=== PATIENT | female | born 1935 | race American Indian/Alaskan Native ===

== ENCOUNTER 2018-04-14 12:57 | Inpatient (IN) | payer MEDICARE, OTHER ==
[2018-04-14 12:57] VITALS: BMI 21.4
[2018-04-14] MEDS ORDERED: Sodium Chloride 0.9% 1,000 ML IV ONE (13:31)
--- NOTE | 2018-04-14 13:34 | C.PDOC ---
History Of Present Illness LIMITED DUE TO DEMENTIA, HX PER FAMILY REFERRED DR RIVERO FOR ADMISSION. B/L FOOT INFXN X 1 YEAR, WORSE X SEV WEEKS. PER FAMILY, HO RA AND "BONES STARTING TO ERODE THROUGH". NO FEVER, CHILLS. EATING WELL, OTHERWISE @ BASELINE. EXAM NAD NONTOXIC EXT CHRONIC RA DEFORMITIES, CONTRACTURES B/L HANDS AND FEET. B/L FEET: +SEVERE BL BUNIONS W EROSION THROUGH SKIN SKIN +LOCAL ERYTHEMA, CHRONIC ULCERATIONS B/L FEET. NO DC REMAINDER NEG Time Seen by Provider: 04/14/18 13:10 Chief Complaint (Nursing): Lower Extremity Problem/Injury History Per: Family History/Exam Limitations: clinical condition (dementia) Onset/Duration Of Symptoms: Days Current Symptoms Are (Timing): Still Present Severity: Moderate Past Medical History Reviewed: Historical Data, Nursing Documentation, Vital Signs Vital Signs: Last Vital Signs Temp 97.4 F L 04/14/18 13:04 Pulse 71 04/14/18 13:04 Resp 18 04/14/18 13:04 BP 100/60 04/14/18 13:04 Pulse Ox 95 04/14/18 13:04 - Medical History PMH: Bronchitis, HTN, Rheumatoid Arthritis Denies: Chronic Kidney Disease Other Surgeries: Hx of surgeries - [facility] Procedures REPAIR OF HAMMER TOE (04/08/14) Family History: States: No Known Family Hx - Social History Hx Alcohol Use: No Hx Substance Use: No Review Of Systems Except As Marked, All Systems Reviewed And Found Negative. Constitutional: Negative for: Fever, Chills Skin: Positive for: Other (bilateral foot infection) Physical Exam - Physical Exam Appears: Non-toxic, No Acute Distress Skin: Normal Color, Warm, Dry, Other (local erythema and chronic ulcerations to bilateral feet, no discharge) Head: Atraumatic, Normacephalic Eye(s): bilateral: Normal Inspection Cardiovascular: Rhythm Regular Respiratory: Other (NARD) Extremity: Normal ROM, Deformity (chronic RA deformities, contractures to bilateral hands and feet), Other (bilateral feet: severe BL bunions with erosion through skin) Neurological/Psych: Oriented x3, Normal Speech ED Course And Treatment - Laboratory Results Result Diagrams: 04/14/18 13:43 04/14/18 13:43 O2 Sat by Pulse Oximetry: 95 (RA) Pulse Ox Interpretation: Normal Progress - Re-Evaluation Re-evaluation Note: 04/14/18 13:30 DW PODIATRY TEAM WILL CONSULT 04/14/18 14:43 D/W DR MANAS CORTEZ [employer]PUT[employer] SPECIALIST WILL ADMIT - Data Reviewed Data Reviewed: Lab, Diagnostic imaging, EKG, Old records Medical Decision Making Medical Decision Making: Plan: --Labs --ECG --CXR --[id number] Feet --IV Fluids Disposition Counseled Patient/Family Regarding: Studies Performed, Diagnosis - Disposition Disposition: HOSPITALIZED Disposition Time: 14:43 Condition: SERIOUS Forms: Luminate (Fijian) - POA Present On Arrival: None - Clinical Impression Clinical Impression: Rheumatoid arthritis of foot, Bone and joint malformation, Osteomyelitis - Scribe Statement The provider has reviewed the documentation as recorded by the Tereseibjessica Armstrong Provider Attestation: All medical record entries made by the Tereseibe were at my direction and personally dictated by me. I have reviewed the chart and agree that the record accurately reflects my personal performance of the history, physical exam, medical decision making, and the department course for this patient. I have also personally directed, reviewed, and agree with the discharge instructions and disposition.
[2018-04-14 13:50] LABS: BASO % 0.5 % (0.0-2.0); EOS % 0.9 % (0.0-4.0); HEMOGLOBIN 8.2 g/dL (11.0-16.0); LYMPH # 1.5 K/uL (1.0-4.3); LYMPH % 27.8 % (20.0-40.0); MEAN CORPUSCULAR HEMOGLOBIN 21.9 pg (27.0-31.0); MEAN CORPUSCULAR HGB CONC 32.4 g/dL (33.0-37.0); MONO # 0.3 K/uL (0.0-0.8); MONO % 5.8 % (0.0-10.0); NEUT # 3.4 K/uL (1.8-7.0); RBC 3.76 Mil/uL (3.80-5.20); RED CELL DISTRIBUTION WIDTH 18.2 % (11.5-14.5); WHITE BLOOD COUNT 5.3 K/uL (4.8-10.8)
[2018-04-14 13:54] LABS: MEAN CELL VOLUME 67.5 fL (81.0-99.0)
[2018-04-14 13:55] LABS: INR 1.1; PROTHROMBIN TIME 11.7 SECONDS (9.7-12.2)
[2018-04-14 14:01] LABS: ALBUMIN 3.6 g/dL (3.5-5.0); CALCIUM 8.8 mg/dl (8.6-10.4)
--- NOTE | 2018-04-14 14:34 | RAD ---
Date of service: 04/14/2018 PROCEDURE: Bilateral Feet Radiographs. HISTORY: BONE PROTRUDING, HO RA COMPARISON: None. 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 Multiple hypertrophic changes about the 5th metatarsal head. Multiple subluxations of the 1st and 5th digits noted. Plate assumed transfixing a remote distal fibular fracture. No gross hardware failure appreciated on these images. Left Foot: All metatarsal shafts appear present. There is extreme hammertoe orientations and confounding super imposition and angular delay hampton deformities of the phalanges relative to the metatarsals. This limits optimal evaluation. Chronicity of this appearance unknown but inferred as likely chronic a faint lucency projects over the left 5th metatarsal base no focal soft tissue swelling is seen here. Top normal variant versus old nondisplaced fracture is believe most likely. Cystic changes of the 4th proximal metatarsal. No gross pathological fracture here. JOINTS: Right Foot: Osteoarthrosis inferred of the phalanges Left Foot: Osteoarthrosis inferred the phalanges SOFT TISSUES: Right Foot: Diffusely swollen. Left Foot: Diffusely swollen OTHER FINDINGS: None. IMPRESSION: Multiple hammertoe orientations as well as multiple subluxations inferred-overall toes are markedly disorganized in appearance on both feet. Comparisons available to assess for stability. Chronicity is favored. Postsurgical changes as detailed above. No gross fracture seen. There is apparent paucity over some of the osseous structures where clinical history states bone is protruding. Is difficult to assess for any discrete osteomyelitis or periosteal reaction to suggest this.. Vascular calcifications
--- NOTE | 2018-04-14 14:53 | RAD ---
HISTORY: Pre Op COMPARISON: No prior. TECHNIQUE: Chest, one view. FINDINGS: Examination limited by patient's arms projecting over the lateral lung baumann. LUNGS: Hyperinflation. Increased lucencies especially within the bilateral upper lung baumann compatible with underlying emphysema. No focal consolidation. Please note that chest x-ray has limited sensitivity for the detection of pulmonary masses. PLEURA: Costophrenic angles are incompletely visualized. No large pleural effusion identified. No definite pneumothorax . CARDIOVASCULAR: Cardiomegaly. Dense atherosclerotic calcification present. OSSEOUS STRUCTURES: Degenerative changes. Osseous demineralization. VISUALIZED UPPER ABDOMEN: Unremarkable. OTHER FINDINGS: None. IMPRESSION: Limited study as above. Cardiomegaly. Emphysema/COPD.
[2018-04-14] MEDS ORDERED: Vancomycin 1 GM 1 GM/250 ML BAG IV SCH (15:00)
--- NOTE | 2018-04-14 17:10 | CP.PCM.HP ---
History of Present Illness - History of Present Illness History of Present Illness: PGY-1 H&P for Dr. Snyder's service Patient is an 82 y.o female with PMH of Rheumatoid arthritis and HTN presents to emergency department for evaluation of possible osteomyelitis in bilateral lower feet. Patient's family was not at bedside during interview process. Patient AAO x 1 at best and is very forgetful, likely secondary to baseline dementia. Patient is a poor historian and most information was collected through nursing staff and chart review. Patient's family was attempted to be contacted but no re sponse. PMH- HTN, Rheumatoid arthritis PSH- unknown FH- unknown Meds- Lisinopril/HCTZ unknown dosing Allergies- NKDA Social- unknown PMD- unknown Code- unknown Present on Admission - Present on Admission Any Indicators Present on Admission: No Review of Systems - Review of Systems Systems not reviewed;Unavailable: Dementia Past Patient History - Past Medical History & Family History Past Medical History?: Yes - Past Social History Smoking Status: Heavy Smoker > 10 Cigarettes Daily - CARDIAC Hx Hypertension: Yes - PULMONARY Hx Bronchitis: Yes - NEUROLOGICAL Hx Neurological Disorder: No - HEENT Hx HEENT Problems: No - RENAL Hx Chronic Kidney Disease: No - ENDOCRINE/METABOLIC Hx Endocrine Disorders: No - HEMATOLOGICAL/ONCOLOGICAL Hx Blood Disorders: No - INTEGUMENTARY Hx Dermatological Problems: No - MUSCULOSKELETAL/RHEUMATOLOGICAL Hx Rheumatoid Arthritis: Yes - GASTROINTESTINAL Hx Gastrointestinal Disorders: No - GENITOURINARY/GYNECOLOGICAL Hx Genitourinary Disorders: Yes Hx Incontinence: Yes - PSYCHIATRIC Hx Substance Use: No - SURGICAL HISTORY Hx Surgeries: Yes Hx Cataract Extraction: Yes (OD 09/09/2013; OS 07/15/2013) - ANESTHESIA Hx Anesthesia: Yes Hx Anesthesia Reactions: No Hx Malignant Hyperthermia: No Meds Allergies/Adverse Reactions: Allergies Allergy/AdvReac Type Severity Reaction Status Date / Time No Known Allergies Allergy Unverified 03/30/14 10:53 Physical Exam - Constitutional Appears: Non-toxic, No Acute Distress - Head Exam Head Exam: NORMAL INSPECTION, NORMOCEPHALIC - Eye Exam Eye Exam: EOMI, Normal appearance. absent: Nystagmus, Scleral icterus - ENT Exam ENT Exam: Mucous Membranes Dry - Respiratory Exam Respiratory Exam: Clear to Auscultation Bilateral, NORMAL BREATHING PATTERN. absent: Accessory Muscle Use, Decreased Breath Sounds, Rales, Rhonchi, Wheezes - Cardiovascular Exam Cardiovascular Exam: REGULAR RHYTHM, +S1, +S2. absent: Systolic Murmur - GI/Abdominal Exam GI & Abdominal Exam: Normal Bowel Sounds, Soft. absent: Diminished Bowel Sounds, Distended, Firm, Guarding, Tenderness - Extremities Exam Extremities exam: Negative for: calf tenderness, pedal edema Additional comments: chronic muscoskeletal deformities 2/2 to RA. deformities in the bilateral upper and lower extremities. Bilateral upper extremity contractures - Neurological Exam Additional comments: AAOx1 - Psychiatric Exam Psychiatric exam: Normal Affect, Normal Mood - Skin Skin Exam: Intact, Normal Color Results - Vital Signs Recent Vital Signs: Last Vital Signs Temp 97.7 F 04/14/18 15:39 Pulse 68 04/14/18 15:39 Resp 16 04/14/18 15:39 BP 109/67 04/14/18 15:39 Pulse Ox 95 04/14/18 15:39 - Labs Result Diagrams: 04/14/18 13:43 04/14/18 13:43 Labs: Laboratory Results - last 24 hr 04/14/18 04/14/18 04/14/18 13:43 13:43 13:43 WBC 5.3 RBC 3.76 L Hgb 8.2 L Hct 25.4 L MCV 67.5 L MCH 21.9 L MCHC 32.4 L RDW 18.2 H Plt Count 216 MPV 7.0 L Neut % (Auto) 65.0 Lymph % (Auto) 27.8 [place] % (Auto) 5.8 Eos % (Auto) 0.9 Baso % (Auto) 0.5 Neut # (Auto) 3.4 Lymph # (Auto) 1.5 [place] # (Auto) 0.3 Eos # (Auto) 0.0 Baso # (Auto) 0.0 Differential Comment PT 11.7 INR 1.1 APTT 34 Sodium 135 Potassium 4.3 Chloride 96 L Carbon Dioxide 28 Anion Gap 14 BUN 73 H Creatinine 1.1 Est GFR ( Amer) 58 Est GFR (Non-Af Amer) 48 Random Glucose 106 H Calcium 8.8 Total Bilirubin 0.5 AST 22 ALT 13 Alkaline Phosphatase 90 Total Protein 7.4 Albumin 3.6 Globulin 3.8 Albumin/Globulin Ratio 1.0 Blood Type Antibody Screen 04/14/18 13:43 WBC RBC Hgb Hct MCV MCH MCHC RDW Plt Count MPV Neut % (Auto) Lymph % (Auto) [place] % (Auto) Eos % (Auto) Baso % (Auto) Neut # (Auto) Lymph # (Auto) [place] # (Auto) Eos # (Auto) Baso # (Auto) Differential Comment PT INR APTT Sodium Potassium Chloride Carbon Dioxide Anion Gap BUN Creatinine Est GFR ( Amer) Est GFR (Non-Af Amer) Random Glucose Calcium Total Bilirubin AST ALT Alkaline Phosphatase Total Protein Albumin Globulin Albumin/Globulin Ratio Blood Type B NEGATIVE Antibody Screen Negative Assessment & Plan - Assessment and Plan (Free Text) Assessment: Patient is a 89 yo female with past medical history of HTN and Rheumatoid arthritis presents to the ED for evaluation of bilateral lower extremity osteomyelitis in her feet. Plan: Osteomyelitis Podiatry following- recommendations appreciated Xray pending of bilateral feet ESR pending 1x dose of Vancomycin Afebrile, No leukocytosis Blood cultures pending Hypertension Lisinopril 10mg po daily HCTZ 25mg po daily Rheumatoid Arthritis Unknown if patient is on medication Anemia Microcytic anemia Hemodynamically stable Repeat CBC in AM Stool occult pending Iron studies pending Dementia AAOx1 unknown baseline; will try to contact family again tomorrow PPX DVT: SCDS GI ppx: protonix 40mg hs
[2018-04-14] MEDS: Pantoprazole 40 mg EC Tab PO SCH (17:34)
[2018-04-14] MEDS ORDERED: Pantoprazole 40 mg EC Tab PO ONE (17:35)
[2018-04-14 17:45] LABS: IRON 23 ug/dL (37-170)
[2018-04-14 17:54] LABS: % IRON SATURATION 11 (20-55); TOTAL IRON BINDING CAPACITY 203 ug/dL (250-450)
[2018-04-14] MEDS: Piperacill/Tazo 3.375gm in Dex 3.375 GM/50 ML BAG IVPB SCH (18:55)
--- NOTE | 2018-04-14 19:04 | CP.PCM.CON ---
History of Present Illness - History of Present Illness History of Present Illness: Podiatry Consult note for Dr. Mcmullen 82F with PMH Rheumatoid arthritis and HTN seen in ED with severe deformity of b/l digits and exposed first metatarsal heads b/l. Patient suffers from dementia and is a poor historian. She states that she does experience some pain in both feet. Denies any recent N/V/F/C/CP/SOB/D Review of Systems - Review of Systems All systems: reviewed and no additional remarkable complaints except Review of Systems: as per HPI Past Patient History - Past Medical History & Family History Past Medical History?: Yes - Past Social History Smoking Status: Heavy Smoker > 10 Cigarettes Daily - CARDIAC Hx Cardiac Disorders: Yes Hx Hypertension: Yes - PULMONARY Hx Respiratory Disorders: Yes Hx Bronchitis: Yes - NEUROLOGICAL Hx Neurological Disorder: Yes Hx Dementia: Yes - HEENT Hx HEENT Problems: No - RENAL Hx Chronic Kidney Disease: No - ENDOCRINE/METABOLIC Hx Endocrine Disorders: No - HEMATOLOGICAL/ONCOLOGICAL Hx Blood Disorders: No - INTEGUMENTARY Hx Dermatological Problems: No - MUSCULOSKELETAL/RHEUMATOLOGICAL Hx Musculoskeletal Disorders: Yes Hx Falls: Yes Hx Rheumatoid Arthritis: Yes - GASTROINTESTINAL Hx Gastrointestinal Disorders: No - GENITOURINARY/GYNECOLOGICAL Hx Genitourinary Disorders: Yes Hx Incontinence: Yes - PSYCHIATRIC Hx Psychophysiologic Disorder: No Hx Substance Use: No - SURGICAL HISTORY Hx Surgeries: Yes Hx Cataract Extraction: Yes (OD 09/09/2013; OS 07/15/2013) - ANESTHESIA Hx Anesthesia: Yes Hx Anesthesia Reactions: No Hx Malignant Hyperthermia: No Has any member of the family had a problem w/ anesthesia?: No Meds Allergies/Adverse Reactions: Allergies Allergy/AdvReac Type Severity Reaction Status Date / Time No Known Allergies Allergy Unverified 03/30/14 10:53 - Medications Medications: Current Medications Hydrochlorothiazide (Hydrodiuril) 25 mg PO DAILY RODRÍGUEZ Last Admin: 04/14/18 17:27 Dose: Not Given Sodium Chloride (Sodium Chloride 0.9%) 1,000 mls @ 100 mls/hr IV .Q10H ONE Stop: 04/14/18 23:30 Last Admin: 04/14/18 13:55 Dose: 100 mls/hr Vancomycin HCl (Vancomycin 1gm In Normal Saline Addvantage) 1 gm in 250 mls @ 166.667 mls/hr IV STAT RODRÍGUEZ; Protocol Piperacillin Sod/Tazobactam Sod (Zosyn 3.375 Gm Iv Premix) 3.375 gm in 50 mls @ 200 mls/hr IVPB Q8H [facility]; Protocol Influenza Virus Vaccine (Fluzone Quad [id number]) 60 mcg IM .ONCE ONE Stop: 04/16/18 10:01 Lisinopril (Zestril) 10 mg PO DAILY [facility] Last Admin: 04/14/18 17:27 Dose: Not Given Pantoprazole Sodium (Protonix Ec Tab) 40 mg PO DAILY [facility] Last Admin: 04/14/18 17:34 Dose: 40 mg Pneumococcal Polyvalent Vaccine (Pneumovax 23 Vaccine) 0.5 ml IM .ONCE ONE Stop: 04/16/18 10:01 Physical Exam - Constitutional Appears: Well, Non-toxic, No Acute Distress - Extremities Exam Additional comments: LE focused exam: Vasc: DP/PT pulses fully palpable 2/4 b/l. Skin temperature warm to warm from proximal to distal. CFT < 3 seconds to all digits. Minimal edema noted to medial aspect of left forefoot Neuro: Epicritic and protective sensation grossly diminished b/l Derm: Open wounds b/l at distal first metatarsal head. Minimal erythema noted to left foot wound. No drainage, malodor or other clinical signs of infection appreciated at this time MSK: Severe digital deformities noted to all digits of both feet especially b/l hallux which are deviated so far laterally that the first metatarsal head protrudes from the skin distally as a result. All other digits laterally deviated and contracted - Neurological Exam Neurological exam: Alert, Altered - Psychiatric Exam Psychiatric exam: Normal Affect, Normal Mood Results - Vital Signs Recent Vital Signs: Last Vital Signs Temp 97.2 F L 04/14/18 18:12 Pulse 62 04/14/18 18:12 Resp 20 04/14/18 18:12 BP 103/42 L 04/14/18 18:12 Pulse Ox 95 04/14/18 18:12 - Labs Result Diagrams: 04/14/18 13:43 04/14/18 13:43 Labs: Laboratory Results - last 24 hr 04/14/18 04/14/18 04/14/18 13:43 13:43 13:43 WBC 5.3 RBC 3.76 L Hgb 8.2 L Hct 25.4 L MCV 67.5 L MCH 21.9 L MCHC 32.4 L RDW 18.2 H Plt Count 216 MPV 7.0 L Neut % (Auto) 65.0 Lymph % (Auto) 27.8 [place] % (Auto) 5.8 Eos % (Auto) 0.9 Baso % (Auto) 0.5 Neut # (Auto) 3.4 Lymph # (Auto) 1.5 [place] # (Auto) 0.3 Eos # (Auto) 0.0 Baso # (Auto) 0.0 Differential Comment ESR PT 11.7 INR 1.1 APTT 34 Sodium 135 Potassium 4.3 Chloride 96 L Carbon Dioxide 28 Anion Gap 14 BUN 73 H Creatinine 1.1 Est GFR ( Amer) 58 Est GFR (Non-Af Amer) 48 Random Glucose 106 H Calcium 8.8 Iron TIBC % Saturation Ferritin Total Bilirubin 0.5 AST 22 ALT 13 Alkaline Phosphatase 90 Total Protein 7.4 Albumin 3.6 Globulin 3.8 Albumin/Globulin Ratio 1.0 Blood Type Antibody Screen 04/14/18 04/14/18 04/14/18 13:43 17:15 17:15 WBC RBC Hgb Hct MCV MCH MCHC RDW Plt Count MPV Neut % (Auto) Lymph % (Auto) [place] % (Auto) Eos % (Auto) Baso % (Auto) Neut # (Auto) Lymph # (Auto) [place] # (Auto) Eos # (Auto) Baso # (Auto) Differential Comment ESR 60 H PT INR APTT Sodium Potassium Chloride Carbon Dioxide Anion Gap BUN Creatinine Est GFR ( Amer) Est GFR (Non-Af Amer) Random Glucose Calcium Iron 23 L TIBC 203 L % Saturation 11 L Ferritin Total Bilirubin AST ALT Alkaline Phosphatase Total Protein Albumin Globulin Albumin/Globulin Ratio Blood Type B NEGATIVE Antibody Screen Negative 04/14/18 17:15 WBC RBC Hgb Hct MCV MCH MCHC RDW Plt Count MPV Neut % (Auto) Lymph % (Auto) [place] % (Auto) Eos % (Auto) Baso % (Auto) Neut # (Auto) Lymph # (Auto) [place] # (Auto) Eos # (Auto) Baso # (Auto) Differential Comment ESR PT INR APTT Sodium Potassium Chloride Carbon Dioxide Anion Gap BUN Creatinine Est GFR ( Amer) Est GFR (Non-Af Amer) Random Glucose Calcium Iron TIBC % Saturation Ferritin 31.1 Total Bilirubin AST ALT Alkaline Phosphatase Total Protein Albumin Globulin Albumin/Globulin Ratio Blood Type Antibody Screen Assessment & Plan - Assessment and Plan (Free Text) Assessment: 82F with PMH Rheumatoid arthritis and HTN seen in ED with severe deformity of b/l digits and exposed first metatarsal heads b/l Plan: Patient seen and evaluated Plan discussed with Dr. Mcmullen Absent leukocytosis ESR 60 ID consult placed, recs appreciated Vascular consult placed, recs appreciated Foot xray: Multiple hammertoe orientations as well as multiple subluxations inferred-overall toes are markedly disorganized in appearance on both feet. Comparisons available to assess for stability. Chronicity is favored. Postsurgical changes as detailed above. No gross fracture seen. There is apparent paucity over some of the osseous structures where clinical history states bone is protruding. Is difficult to assess for any discrete osteomyelitis or periosteal reaction to suggest this. Vascular calcifications Patient will need b/l surgical intervention pending vascular workup; will f/u with Dr. Mcmullen Wounds dressed with betadine, DSD Podiatry will continue to follow while patient in house - Date & Time Date: 04/14/18 Time: 19:13
[2018-04-15] MEDS ORDERED: Iodixanol 320 MG/ML 100 ML BOTTLE IV ONE (00:26)
--- NOTE | 2018-04-15 01:27 | CP.PCM.CON ---
History of Present Illness - History of Present Illness History of Present Illness: Vascular surgery consult note for Dr. Garcia consulted for chronic foot wounds, vascular evaluation PT is a poor historian, portions of the history have been obtained from the daughter and the nurse. 82 y/o female with a PMHX RA, dementia, and HTN presents with complaints of worsening of chronic bilateral forefoot ulcers. She has 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 Vascular Surgery is being consulted to evaluate peripheral vascular supply prior to surgical treatment by podiatry. Pt has been seeing podiatry for recurrent foot infections for the past year. She complains of some soreness BL forefeet, but denies fever, chills, nausea, vomit, diarrhea, numbness and tingling. PMHX: RA, Dementia, HTN, PSHX: Metatarsal head resection Meds: lisinopril, hydrochlorothiazide ALL: NKDA Social: Heavy smoker > 10 years Review of Systems - Review of Systems All systems: reviewed and no additional remarkable complaints except (as per H PI) Past Patient History - Past Medical History & Family History Past Medical History?: Yes - Past Social History Smoking Status: Heavy Smoker > 10 Cigarettes Daily - CARDIAC Hx Cardiac Disorders: Yes Hx Hypertension: Yes - PULMONARY Hx Respiratory Disorders: Yes Hx Bronchitis: Yes - NEUROLOGICAL Hx Neurological Disorder: Yes Hx Dementia: Yes - HEENT Hx HEENT Problems: No - RENAL Hx Chronic Kidney Disease: No - ENDOCRINE/METABOLIC Hx Endocrine Disorders: No - HEMATOLOGICAL/ONCOLOGICAL Hx Blood Disorders: No - INTEGUMENTARY Hx Dermatological Problems: No - MUSCULOSKELETAL/RHEUMATOLOGICAL Hx Musculoskeletal Disorders: Yes Hx Falls: Yes Hx Rheumatoid Arthritis: Yes - GASTROINTESTINAL Hx Gastrointestinal Disorders: No - GENITOURINARY/GYNECOLOGICAL Hx Genitourinary Disorders: Yes Hx Incontinence: Yes - PSYCHIATRIC Hx Substance Use: No - SURGICAL HISTORY Hx Surgeries: Yes Hx Cataract Extraction: Yes (OD 09/09/2013; OS 07/15/2013) - ANESTHESIA Hx Anesthesia: Yes Hx Anesthesia Reactions: No Hx Malignant Hyperthermia: No Has any member of the family had a problem w/ anesthesia?: No Meds Allergies/Adverse Reactions: Allergies Allergy/AdvReac Type Severity Reaction Status Date / Time No Known Allergies Allergy Unverified 03/30/14 10:53 - Medications Medications: Current Medications Hydrochlorothiazide (Hydrodiuril) 25 mg PO DAILY [facility] Last Admin: 04/14/18 17:27 Dose: Not Given Vancomycin HCl (Vancomycin 1gm In Normal Saline Addvantage) 1 gm in 250 mls @ 166.667 mls/hr IV STAT [facility]; Protocol Piperacillin Sod/Tazobactam Sod (Zosyn 3.375 Gm Iv Premix) 3.375 gm in 50 mls @ 200 mls/hr IVPB Q8H [facility]; Protocol Last Admin: 04/14/18 18:55 Dose: 200 mls/hr Influenza Virus Vaccine (Fluzone Quad [id number]) 60 mcg IM .ONCE ONE Stop: 04/16/18 10:01 Lisinopril (Zestril) 10 mg PO DAILY [facility] Last Admin: 04/14/18 17:27 Dose: Not Given Pantoprazole Sodium (Protonix Ec Tab) 40 mg PO DAILY [facility] Last Admin: 04/14/18 17:34 Dose: 40 mg Pneumococcal Polyvalent Vaccine (Pneumovax 23 Vaccine) 0.5 ml IM .ONCE ONE Stop: 04/16/18 10:01 Physical Exam - Constitutional Appears: Non-toxic, No Acute Distress - Head Exam Head Exam: ATRAUMATIC, NORMOCEPHALIC - Eye Exam Eye Exam: Normal appearance. absent: Conjunctival injection, Scleral icterus - ENT Exam ENT Exam: Mucous Membranes Moist, Normal Oropharynx - Respiratory Exam Respiratory Exam: NORMAL BREATHING PATTERN. absent: Accessory Muscle Use, Respiratory Distress - Cardiovascular Exam Cardiovascular Exam: RRR - GI/Abdominal Exam GI & Abdominal Exam: Soft. absent: Distended, Tenderness - Extremities Exam Extremities exam: Negative for: calf tenderness, pedal edema Additional comments: distal foot covered in dressing c/d/i, BL feet warm, non-palpable DP, BL palpable TP and popliteal arteries - Neurological Exam Neurological exam: Alert, Altered - Psychiatric Exam Psychiatric exam: Normal Affect, Normal Mood - Skin Skin Exam: Dry, Normal Color, Warm Results - Vital Signs Recent Vital Signs: Last Vital Signs Temp 97.2 F L 04/14/18 18:12 Pulse 67 04/14/18 18:15 Resp 20 04/14/18 18:12 BP 105/58 L 04/14/18 18:15 Pulse Ox 95 04/14/18 18:12 - Labs Result Diagrams: 04/14/18 13:43 04/14/18 13:43 Labs: Laboratory Results - last 24 hr 04/14/18 04/14/18 04/14/18 13:43 13:43 13:43 WBC 5.3 RBC 3.76 L Hgb 8.2 L Hct 25.4 L MCV 67.5 L MCH 21.9 L MCHC 32.4 L RDW 18.2 H Plt Count 216 MPV 7.0 L Neut % (Auto) 65.0 Lymph % (Auto) 27.8 Lake % (Auto) 5.8 Eos % (Auto) 0.9 Baso % (Auto) 0.5 Neut # (Auto) 3.4 Lymph # (Auto) 1.5 Lake # (Auto) 0.3 Eos # (Auto) 0.0 Baso # (Auto) 0.0 Differential Comment ESR PT 11.7 INR 1.1 APTT 34 Sodium 135 Potassium 4.3 Chloride 96 L Carbon Dioxide 28 Anion Gap 14 BUN 73 H Creatinine 1.1 Est GFR ( Amer) 58 Est GFR (Non-Af Amer) 48 Random Glucose 106 H Calcium 8.8 Iron TIBC % Saturation Ferritin Total Bilirubin 0.5 AST 22 ALT 13 Alkaline Phosphatase 90 Total Protein 7.4 Albumin 3.6 Globulin 3.8 Albumin/Globulin Ratio 1.0 Blood Type Antibody Screen 04/14/18 04/14/18 04/14/18 13:43 17:15 17:15 WBC RBC Hgb Hct MCV MCH MCHC RDW Plt Count MPV Neut % (Auto) Lymph % (Auto) Lake % (Auto) Eos % (Auto) Baso % (Auto) Neut # (Auto) Lymph # (Auto) Lake # (Auto) Eos # (Auto) Baso # (Auto) Differential Comment ESR 60 H PT INR APTT Sodium Potassium Chloride Carbon Dioxide Anion Gap BUN Creatinine Est GFR ( Amer) Est GFR (Non-Af Amer) Random Glucose Calcium Iron 23 L TIBC 203 L % Saturation 11 L Ferritin Total Bilirubin AST ALT Alkaline Phosphatase Total Protein Albumin Globulin Albumin/Globulin Ratio Blood Type B NEGATIVE Antibody Screen Negative 04/14/18 17:15 WBC RBC Hgb Hct MCV MCH MCHC RDW Plt Count MPV Neut % (Auto) Lymph % (Auto) Lake % (Auto) Eos % (Auto) Baso % (Auto) Neut # (Auto) Lymph # (Auto) Lake # (Auto) Eos # (Auto) Baso # (Auto) Differential Comment ESR PT INR APTT Sodium Potassium Chloride Carbon Dioxide Anion Gap BUN Creatinine Est GFR ( Amer) Est GFR (Non-Af Amer) Random Glucose Calcium Iron TIBC % Saturation Ferritin 31.1 Total Bilirubin AST ALT Alkaline Phosphatase Total Protein Albumin Globulin Albumin/Globulin Ratio Blood Type Antibody Screen Assessment & Plan - Assessment and Plan (Free Text) Assessment: 82F with chronic BL forefoot wounds Plan: F/U OLIVA/PVR's Continue current medical management Local wound care per podiatry antibiotics PRN pain medication PT/OT Further vascular intervention pending OLIVA/PVR--no CTA at this time d/t elevated BUN/Cr Discussed with Dr. Jose Sanders, PGY2
[2018-04-15] MEDS: Piperacill/Tazo 3.375gm in Dex 3.375 GM/50 ML BAG IVPB SCH ×3 (02:08→17:40)
[2018-04-15 07:31] LABS: BASO % 0.8 % (0.0-2.0); EOS # 0.1 K/uL (0.0-0.7); EOS % 2.5 % (0.0-4.0); HEMOGLOBIN 7.4 g/dL (11.0-16.0); LYMPH # 1.1 K/uL (1.0-4.3); LYMPH % 32.7 % (20.0-40.0); MEAN CELL VOLUME 67.5 fL (81.0-99.0); MEAN CORPUSCULAR HEMOGLOBIN 21.4 pg (27.0-31.0); MEAN CORPUSCULAR HGB CONC 31.7 g/dL (33.0-37.0); MEAN PLATELET VOLUME 7.2 fL (7.2-11.7); MONO # 0.2 K/uL (0.0-0.8); MONO % 5.9 % (0.0-10.0); NEUT % 58.1 % (50.0-75.0); NRBC % 0.1 % (0.0-2.0); RBC 3.44 Mil/uL (3.80-5.20); RED CELL DISTRIBUTION WIDTH 17.9 % (11.5-14.5); WHITE BLOOD COUNT 3.5 K/uL (4.8-10.8)
[2018-04-15 08:17] LABS: ALB/GLOB RATIO 0.8 (1.0-2.1); ALBUMIN 2.8 g/dL (3.5-5.0); ALT/SGPT 17 U/L (9-52); AST/SGOT 18 U/L (14-36); BLOOD UREA NITROGEN 58 mg/dL (7-17); CALCIUM 8.2 mg/dl (8.6-10.4); GFR NON-AFRICAN AMERICAN 53
--- NOTE | 2018-04-15 09:02 | CP.PCM.PN ---
<Renard Rock - Last Filed: 04/15/18 13:37> Subjective - Date & Time of Evaluation Date of Evaluation: 04/15/18 Time of Evaluation: 09:00 - Subjective Subjective: Medicine Service Dr Snyder Pt seen and examined at bedside. Pt denies any acute events overnight. Pt aware of current state but has no insight, due to dementia. Pt denies cp sob fc nv urinary or bm complaints. tolerateing foods. Objective - Vital Signs/Intake and Output Vital Signs (last 24 hours): Temp Pulse Resp BP Pulse Ox 98.1 F 74 20 96/55 L 96 04/15/18 08:00 04/15/18 08:00 04/15/18 08:00 04/15/18 08:00 04/15/18 08:00 Intake and Output: 04/15/18 04/15/18 06:59 18:59 Intake Total 250 Balance 250 - Medications Medications: Current Medications Ferric Sodium Gluconate Complex (Ferrlecit) 125 mg IVPB DAILY [facility] Stop: 04/23/18 10:01 Hydrochlorothiazide (Hydrodiuril) 25 mg PO DAILY [facility] Last Admin: 04/14/18 17:27 Dose: Not Given Vancomycin HCl (Vancomycin 1gm In Normal Saline Addvantage) 1 gm in 250 mls @ 166.667 mls/hr IV STAT [facility]; Protocol Piperacillin Sod/Tazobactam Sod (Zosyn 3.375 Gm Iv Premix) 3.375 gm in 50 mls @ 200 mls/hr IVPB Q8H [facility]; Protocol Last Admin: 04/15/18 02:08 Dose: 200 mls/hr Vancomycin HCl 1,000 mg/ (Sodium Chloride) 250 mls @ 166.6 mls/hr IVPB Q12H [facility]; Protocol Influenza Virus Vaccine (Fluzone Quad [id number]) 60 mcg IM .ONCE ONE Stop: 04/16/18 10:01 Lisinopril (Zestril) 10 mg PO DAILY [facility] Last Admin: 04/14/18 17:27 Dose: Not Given Pantoprazole Sodium (Protonix Ec Tab) 40 mg PO DAILY [facility] Last Admin: 04/14/18 17:34 Dose: 40 mg Pneumococcal Polyvalent Vaccine (Pneumovax 23 Vaccine) 0.5 ml IM .ONCE ONE Stop: 04/16/18 10:01 - Labs Labs: 04/15/18 07:12 04/15/18 07:12 PT 11.7 SECONDS (9.7-12.2) 04/14/18 13:43 INR 1.1 04/14/18 13:43 APTT 34 SECONDS (21-34) 04/14/18 13:43 - Constitutional Appears: No Acute Distress, Confused, Cachectic - Head Exam Head Exam: ATRAUMATIC, NORMAL INSPECTION - Eye Exam Eye Exam: EOMI, Normal appearance - ENT Exam ENT Exam: Normal Oropharynx - Respiratory Exam Respiratory Exam: Clear to Ausculation Bilateral, NORMAL BREATHING PATTERN. absent: Rhonchi, Wheezes - Cardiovascular Exam Cardiovascular Exam: RRR, +S1, +S2 - GI/Abdominal Exam GI & Abdominal Exam: Soft. absent: Guarding, Tenderness - Extremities Exam Additional comments: bilateral feet in dressings. - Neurological Exam Neurological Exam: Alert, Awake. absent: Oriented x3 - Psychiatric Exam Psychiatric exam: Normal Affect, Normal Mood - Skin Skin Exam: Dry, Pallor Assessment and Plan - Assessment and Plan (Free Text) Assessment: Patient is a 89 yo female with past medical history of HTN and Rheumatoid arthritis presents to the ED for evaluation of bilateral lower extremity o steomyelitis in her feet. Plan: Osteomyelitis Dr Carson Podiatry following- recommendations appreciated Dr Garcia VasMahsa following- recs appreciated pending Arter PVR Xray pending of bilateral feet ESR pending Vanco 1g q12 IVPB trough tmrw night Zosyn 3.375 q8 IVPB Afebrile, No leukocytosis Blood cultures pending Hypertension Lisinopril 10mg po daily HCTZ 25mg po daily Rheumatoid Arthritis Unknown if patient is on medication Iron deficiency Anemia Ferrlecit 125 IVPB x1 Microcytic anemia Hemodynamically stable Repeat CBC in AM Stool occult pending Dementia AAOx1 unknown baseline; will try to contact family again tomorrow PPX DVT: SCDS GI ppx: protonix 40mg hs <Joe Snyder Jr. - Last Filed: 04/26/18 15:22> Objective - Vital Signs/Intake and Output Vital Signs (last 24 hours): Temp Pulse Resp BP Pulse Ox 98.0 F 70 20 112/59 L 95 04/23/18 17:11 04/23/18 17:11 04/23/18 17:11 04/23/18 17:11 04/23/18 17:11 - Labs Labs: 04/23/18 07:42 04/23/18 07:42 PT 13.4 SECONDS (9.7-12.2) H 04/22/18 07:44 INR 1.2 04/22/18 07:44 APTT 36 SECONDS (21-34) H 04/22/18 07:44 Attending/Attestation - Attestation I have personally seen and examined this patient.: Yes I have fully participated in the care of the patient.: Yes I have reviewed all pertinent clinical information, including history, physical exam and plan: Yes Notes (Text): 04/26/18 15:22 Reviewed resident note. Agree with findings and plan of care.
[2018-04-15] MEDS ORDERED: Ferric Sodium Gluconat Complex 62.5 mg/5 ml Vial IVPB SCH (10:00)
[2018-04-15] MEDS: Ferric Sodium Gluconat Complex 125 MG in Sodium Chloride 0.9% 100 ML IVPB SCH ×2 (10:09→10:10)
[2018-04-15] MEDS: Pantoprazole 40 mg EC Tab PO SCH (10:11)
[2018-04-15] MEDS: Vancomycin 1 gm/NS 200 ml 1 GM/200 ML BAG IVPB SCH ×2 (11:21→22:05)
[2018-04-15] MEDS ORDERED: Iodixanol 320 mg/ml 150 ml Bottle IV ONE (11:54)
--- NOTE | 2018-04-15 14:46 | CT ---
Date of service: 04/15/2018 PROCEDURE: CT Angiography Abdomen, Pelvis and Lower Extremity with Contrast HISTORY: bilateral non healing foot ulcers COMPARISON: None available. TECHNIQUE: Technique: CT angiography of the abdomen, pelvis and bilateral lower extremities performed in the arterial phase of enhancement. Coronal and sagittal reformats, and well as rotating MIP images of the vessels generated at the workstation. Intravenous contrast dose: 150 cubic centimeters Visipaque 20 Radiation dose: Total exam DLP = 997.26 mGy-cm. This CT exam was performed using one or more of the following dose reduction techniques: Automated exposure control, adjustment of the mA and/or kV according to patient size, and/or use of iterative reconstruction technique. FINDINGS: CT ANGIOGRAPHY: ABDOMINAL AORTA:: Severe calcific throughout abdominal aorta and major branches without stenosis. MAJOR AORTIC BRANCHES: Celiac [place]: Severe calcific plaque at the origin without significant stenosis. Superior mesenteric artery: Unremarkable. Inferior mesenteric artery: Unremarkable. Renal arteries: Unremarkable. PELVIC ARTERIES: Right Common Iliac: Moderate calcific plaque with no stenosis. Right External Iliac: Unremarkable. Right Internal Iliac: Unremarkable. Left Common Iliac: Calcific plaque with no stenosis. Left External Iliac: Unremarkable. Left Internal Iliac: Unremarkable. RIGHT LOWER EXTREMITY ARTERIES: Right Common Femoral: Moderate calcific plaque without stenosis. Right Superficial Femoral: Calcific plaque with no stenosis per Right Profunda Femoris: Unremarkable. Right Popliteal:Unremarkable. Right Anterior Tibial: Mild to severe calcific plaque with multiple areas of moderate stenosis throughout the anterior tibial artery.. Right Tibioperoneal Trunk: Unremarkable. Right Posterior Tibial: Mild to severe calcific plaque with multiple areas of possible moderate stenosis throughout. Calcific plaque limits evaluation. Right Peroneal: Unremarkable. Right dorsalis pedis : Unremarkable. LEFT LOWER EXTREMITY ARTERIES: Left Common Femoral: Moderate calcific plaque with no stenosis.. Left Superficial Femoral: Moderate calcific plaque with a focal area of mild stenosis in the mid segment.. Left Profunda Femoris: Unremarkable. Left Popliteal: Unremarkable. Left Anterior Tibial: Moderate to severe calcific plaque which limits evaluation. Possible multiple areas of tandem moderate to severe stenosis throughout the anterior tibial artery.. Left Tibioperoneal Trunk: Unremarkable. Left Posterior Tibial: Moderate to severe calcific plaque which limits evaluation. Possible multiple areas of tandem moderate to severe stenosis throughout the posterior tibial artery. Left Peroneal: Unremarkable. Left Dorsalis pedis: Unremarkable. NON-ANGIOGRAPHIC ASPECT OF THE EXAM: LOWER THORAX: Unremarkable. LIVER: Unremarkable. No gross lesion or ductal dilatation. GALLBLADDER AND BILE DUCTS: Unremarkable. PANCREAS: Unremarkable. No gross lesion or ductal dilatation. SPLEEN: Unremarkable. ADRENALS: Unremarkable. No mass. KIDNEYS AND URETERS: Unremarkable. No hydronephrosis. No solid mass. STOMACH AND BOWEL: Severely limited evaluation of the small and large bowel without PO contrast.. No obstruction. APPENDIX: Visualized PERITONEUM: Unremarkable. No free fluid. No free air. LYMPH NODES: Unremarkable. No enlarged lymph nodes. BLADDER: Unremarkable. REPRODUCTIVE: Unremarkable. BONES: No acute fracture. OTHER FINDINGS: None. IMPRESSION: CT ANGIOGRAM ABDOMEN/PELVIS: 1. Moderate calcific plaque throughout abdominal aorta and pelvic arteries without significant stenosis. RIGHT LOWER EXTREMITY CT ANGIOGRAM: 1. Moderate calcific plaque in the common femoral artery, profunda femoral artery, and superficial femoral artery without significant stenosis. 2. Moderate calcific and popliteal artery without significant stenosis. 3. Runoff shows a patent peroneal artery. Both anterior tibial artery posterior tibial artery are mildly calcified which limits evaluation. Both arteries are believed to have multiple areas of tandem moderate stenosis throughout. LOWER EXTREMITY CT ANGIOGRAM: 1. Moderate calcific plaque in the common femoral artery, profunda femoral artery, without significant stenosis. The SFA is mildly calcified and has a focal area of mild stenosis in the mid SFA. 2. Moderate calcific and popliteal artery without significant stenosis. 3. Runoff shows a patent peroneal artery. Both anterior tibial artery posterior tibial artery are mildly calcified which limits evaluation. Both arteries are believed to have multiple areas of tandem moderate stenosis throughout.
--- NOTE | 2018-04-15 18:18 | CP.PCM.CON ---
History of Present Illness - History of Present Illness History of Present Illness: 82 y/o female with a PMH RA, dementia, and HTN presents with complaints of worsening of chronic bilateral forefoot ulcers. 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 Pt has been seeing podiatry for recurrent foot infections for the past year. ID consulted for antibiotic management will likely need amp of digits if vascular supply adequate PMHX: RA, Dementia, HTN, PSHX: Metatarsal head resection Meds: lisinopril, hydrochlorothiazide ALL: NKDA Social: Heavy smoker > 10 years Review of Systems - Review of Systems Systems not reviewed;Unavailable: Altered Mental Status All systems: reviewed and no additional remarkable complaints except - Constitutional Constitutional: As Per HPI - EENT Eyes: absent: As Per HPI, Blind Spots, Blurred Vision, Change in Vision, Decreased Night Vision, Diplopia, Discharge, Dry Eye, Exophthalmos, Floaters, Irritation, Itchy Eyes, Loss of Peripheral Vision, Pain, Photophobia, Requires Corrective Lenses, Sees Flashes, Spots in Vision, Tunnel Vision, Other Visual Disturbances, Loss of Vision, Other Ears: absent: As Per HPI, Decreased Hearing, Ear Discharge, Ear Pain, Tinnitus, Abnormal Hearing, Disequilibrium, Dizziness, Other Nose/Mouth/Throat: absent: As Per HPI, Epistaxis, Nasal Congestion, Nasal Discharge, Nasal Obstruction, Nasal Trauma, Nose Pain, Post Nasal Drip, Sinus Pain, Sinus Pressure, Bleeding Gums, Change in Voice, Dental Pain, Dry Mouth, Dysphagia, Halitosis, Hoarsness, Lip Swelling, Mouth Lesions, Mouth Pain, Odynophagia, Sore Throat, Throat Swelling, Tongue Swelling, Facial Pain, Neck Pain, Neck Mass, Other - Breasts Breasts: absent: As Per HPI, Change in Shape, Mass, Pain, Nipple Discharge, Nipple Inversion, Skin Changes, Swelling, Other - Cardiovascular Cardiovascular: absent: As Per HPI, Acrocyanosis, Chest Pain, Chest Pain at Rest, Chest Pain with Activity, Claudication, Diaphoresis, Dyspnea, Dyspnea on Exertion, Edema, Irregular Heart Rhythm, Pain Radiating to Arm/Neck/Jaw, Leg Edema, Leg Ulcers, Lightheadedness, Orthopnea, Palpitations, Paroxysmal Nocturnal Dyspnea, Pedal Edema, Radiating Pain, Rapid Heart Rate, Slow Heart Rate, Syncope, Other - Respiratory Respiratory: absent: As Per HPI, Cough, Dyspnea, Hemoptysis, Dyspnea on Exertion, Wheezing, Snoring, Stridor, Pain on Inspiration, Chest Congestion, Excessive Mucous Production, Change in Mucous Color, Pain with Coughing, Other - Gastrointestinal Gastrointestinal: absent: As Per HPI, Abdominal Pain, Belching, Bloating, Change in Bowel Habits, Change in Stool Character, Coffee Ground Emesis, Constipation, Cramping, Diarrhea, Dyspepsia, Dysphagia, Early Satiety, Excessive Flatus, Fecal Incontinence, Heartburn, Hematemesis, Hematochezia, Loose Stools, Melena, Naus ea, Odynophagia, Temesmus, Vomiting, Other - Genitourinary Genitourinary: absent: As Per HPI, Change in Urinary Stream, Difficulty Urinating, Dysuria, Flank Pain, Hematuria, Pyuria, Nocturia, Urinary Incontinence, Urinary Frequency, Urinary Hesitance, Urinary Urgency, Voiding Freq/Small Amts, Freq UTI, Hx Renal/Bladder Calculi, Hx /Renal Surgery, Bladder Distension, Other - Reproductive: Female Reproductive:Female: absent: As Per HPI, Amenorrhea, Amenorrhea/ Control, Currently Menstual, Cycle <21 Days, Cycle >35 Days, Cycle Variable, Menses 1-7 Days, Menses >/= 8 Days, Menses Variable, Cycle > 4 Weeks Between, No Menses for 6 Months, Heavy Menses, Light Menses, Normal Menses, Spotting Between Cycles, S/P Hysterectomy, Menopausal, Post Menopausal, Premenarche, Abnormal Vaginal Bleeding, Dysmenorrhea, Dyspareunia, Genital Lesions, Genital Pruritis, Pelvic Pain, Prolapse Symptoms, Sexual Dysfunction, Vaginal Discharge, Vaginal Dryness, Vaginal Odor, Vaginal Pruritis, Other - Menstruation Menstruation: absent: As Per HPI, Amenorrhea, Amenorrhea/ Control, Curr ently Menstual, Cycle <21 Days, Cycle >35 Days, Cycle Variable, Menses 1-7 Days, Menses >/= 8 Days, Menses Variable, Cycle > 4 Weeks Between, No Menses for 6 Months, Heavy Menses, Light Menses, Normal Menses, Spotting Between Cycles, S/P Hysterectomy, Menopausal, Post Menopausal, Premenarche, Abnormal Vaginal Bleeding, Dysmenorrhea, Other - Musculoskeletal Musculoskeletal: As Per HPI, Deformity - Integumentary Integumentary: As Per HPI, Skin Pain, Wounds - Neurological Neurological: As Per HPI - Psychiatric Psychiatric: As Per HPI - Endocrine Endocrine: absent: As Per HPI, Change in Body Appearance, Change in Libido, Cold Intolorance, Deepening of Voice, Excessive Sweating, Fatigue, Flushing, Heat Intolorance, Increase in Ring/Shoe/Hat Size, Palpitations, Polydipsia, Polyphagia, Polyuria, Other - Hematologic/Lymphatic Hematologic: absent: As Per HPI, Easy Bleeding, Easy Bruising, Lymphadenopathy, Other Past Patient History - Past Medical History & Family History Past Medical History?: Yes - Past Social History Smoking Status: Heavy Smoker > 10 Cigarettes Daily - CARDIAC Hx Cardiac Disorders: Yes Hx Hypertension: Yes - PULMONARY Hx Respiratory Disorders: Yes Hx Bronchitis: Yes - NEUROLOGICAL Hx Neurological Disorder: Yes Hx Dementia: Yes - HEENT Hx HEENT Problems: No - RENAL Hx Chronic Kidney Disease: No - ENDOCRINE/METABOLIC Hx Endocrine Disorders: No - HEMATOLOGICAL/ONCOLOGICAL Hx Blood Disorders: No - INTEGUMENTARY Hx Dermatological Problems: No - MUSCULOSKELETAL/RHEUMATOLOGICAL Hx Musculoskeletal Disorders: Yes Hx Falls: Yes Hx Rheumatoid Arthritis: Yes - GASTROINTESTINAL Hx Gastrointestinal Disorders: No - GENITOURINARY/GYNECOLOGICAL Hx Genitourinary Disorders: Yes Hx Incontinence: Yes - PSYCHIATRIC Hx Substance Use: No - SURGICAL HISTORY Hx Surgeries: Yes Hx Cataract Extraction: Yes (OD 09/09/2013; OS 07/15/2013) - ANESTHESIA Hx Anesthesia: Yes Hx Anesthesia Reactions: No Hx Malignant Hyperthermia: No Has any member of the family had a problem w/ anesthesia?: No Meds Allergies/Adverse Reactions: Allergies Allergy/AdvReac Type Severity Reaction Status Date / Time No Known Allergies Allergy Unverified 03/30/14 10:53 - Medications Medications: Current Medications Hydrochlorothiazide (Hydrodiuril) 25 mg PO DAILY [facility] Last Admin: 04/15/18 10:10 Dose: Not Given Piperacillin Sod/Tazobactam Sod (Zosyn 3.375 Gm Iv Premix) 3.375 gm in 50 mls @ 200 mls/hr IVPB Q8H [facility]; Protocol Last Admin: 04/15/18 17:40 Dose: 200 mls/hr Vancomycin/Sodium Chloride (Vancomycin 1 Gm/Ns 200 Ml) 1 gm in 200 mls @ 133.333 mls/hr IVPB Q12H [facility]; Protocol Stop: 04/20/18 11:01 Last Admin: 04/15/18 11:21 Dose: 133.333 mls/hr Ferric Sodium Gluconate Complex 125 mg/ Sodium Chloride 110 mls @ 110 mls/hr IVPB DAILY [facility] Stop: 04/23/18 09:31 Last Admin: 04/15/18 10:10 Dose: Not Given Influenza Virus Vaccine (Fluzone Quad [id number]) 60 mcg IM .ONCE ONE Stop: 04/16/18 10:01 Lisinopril (Zestril) 10 mg PO DAILY [facility] Last Admin: 04/15/18 10:10 Dose: Not Given Pantoprazole Sodium (Protonix Ec Tab) 40 mg PO DAILY [facility] Last Admin: 04/15/18 10:11 Dose: 40 mg Pneumococcal Polyvalent Vaccine (Pneumovax 23 Vaccine) 0.5 ml IM .ONCE ONE Stop: 04/16/18 10:01 Physical Exam - Constitutional Appears: Non-toxic, Confused, Cachectic, Chronically Ill - Head Exam Head Exam: ATRAUMATIC, NORMAL INSPECTION, NORMOCEPHALIC - Eye Exam Eye Exam: absent: Scleral icterus - ENT Exam ENT Exam: Mucous Membranes Dry, Normal External Ear Exam, Normal Oropharynx - Neck Exam Neck exam: Negative for: Lymphadenopathy - Respiratory Exam Respiratory Exam: Decreased Breath Sounds, Prolonged Expiratory Phase, Rhonchi - Cardiovascular Exam Cardiovascular Exam: REGULAR RHYTHM, +S1, +S2 - GI/Abdominal Exam GI & Abdominal Exam: Diminished Bowel Sounds, Soft. absent: Tenderness - Rectal Exam Rectal Exam: Deferred - Extremities Exam Extremities exam: Positive for: pedal pulses present. Negative for: calf tenderness Additional comments: severe RA defoemities of digits on hands and feet lower extrem: Vasc: DP/PT pulses fully palpable 2/4 b/l. Skin temperature warm to warm from proximal to distal. CFT < 3 seconds to all digits. Minimal edema noted to medial aspect of left forefoot Neuro: Epicritic and protective sensation grossly diminished b/l Derm: Open wounds b/l at distal first metatarsal head. Minimal erythema noted to left foot wound. No drainage, malodor or other clinical signs of infection appreciated at this time MSK: Severe digital deformities noted to all digits of both feet especially b/l hallux which are deviated so far laterally that the first metatarsal head protrudes from the skin distally as a result. All other digits laterally deviated and contracted - Back Exam Back exam: absent: CVA tenderness (L), CVA tenderness (R) - Neurological Exam Neurological exam: Alert, Altered, CN II-XII Intact - Psychiatric Exam Psychiatric exam: Depressed - Skin Skin Exam: Dry Results - Vital Signs Recent Vital Signs: Last Vital Signs Temp 97.6 F 04/15/18 15:00 Pulse 75 04/15/18 15:00 Resp 20 04/15/18 15:00 BP 99/57 L 04/15/18 15:00 Pulse Ox 95 04/15/18 15:00 - Labs Result Diagrams: 04/15/18 07:12 04/15/18 07:12 Labs: Laboratory Results - last 24 hr 04/14/18 04/14/18 04/15/18 17:15 17:15 07:12 WBC 3.5 L RBC 3.44 L Hgb 7.4 L Hct 23.3 L MCV 67.5 L MCH 21.4 L MCHC 31.7 L RDW 17.9 H Plt Count 182 MPV 7.2 Neut % (Auto) 58.1 Lymph % (Auto) 32.7 [place] % (Auto) 5.9 Eos % (Auto) 2.5 Baso % (Auto) 0.8 Neut # (Auto) 2.0 Lymph # (Auto) 1.1 [place] # (Auto) 0.2 Eos # (Auto) 0.1 Baso # (Auto) 0.0 ESR 60 H Sodium Potassium Chloride Carbon Dioxide Anion Gap BUN Creatinine Est GFR ( Amer) Est GFR (Non-Af Amer) Random Glucose Calcium Ferritin 31.1 Total Bilirubin AST ALT Alkaline Phosphatase Total Protein Albumin Globulin Albumin/Globulin Ratio 04/15/18 07:12 WBC RBC Hgb Hct MCV MCH MCHC RDW Plt Count MPV Neut % (Auto) Lymph % (Auto) [place] % (Auto) Eos % (Auto) Baso % (Auto) Neut # (Auto) Lymph # (Auto) [place] # (Auto) Eos # (Auto) Baso # (Auto) ESR Sodium 136 Potassium 4.2 Chloride 100 Carbon Dioxide 26 Anion Gap 15 BUN 58 H Creatinine 1.0 Est GFR ( Amer) > 60 Est GFR (Non-Af Amer) 53 Random Glucose 91 Calcium 8.2 L Ferritin Total Bilirubin 0.5 AST 18 ALT 17 Alkaline Phosphatase 63 Total Protein 6.3 Albumin 2.8 L D Globulin 3.5 Albumin/Globulin Ratio 0.8 L Assessment & Plan (1) Bone and joint malformation Status: Acute (2) Osteomyelitis Status: Acute (3) Rheumatoid arthritis of foot Status: Acute - Assessment and Plan (Free Text) Assessment: Patient has hx of 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 Pt has been seeing podiatry for recurrent foot infections for the past year. ID consulted for antibiotic management will likely need amp of digits if vascular supply adequate will cont iv antibiotics and wound care
--- NOTE | 2018-04-15 18:29 | CP.PCM.PN ---
Subjective - Date & Time of Evaluation Date of Evaluation: 04/15/18 Time of Evaluation: 18:27 - Subjective Subjective: Podiatry Progress Note for Dr. Mcmullen 82F seen and evaluated for b/l great toe disarticulation and lesser digit deformity secondary to RA. Patient suffers from dementia and is unable to relate how she feels. Per nursing, no acute overnight events. Objective - Vital Signs/Intake and Output Vital Signs (last 24 hours): Temp Pulse Resp BP Pulse Ox 97.6 F 75 20 99/57 L 95 04/15/18 15:00 04/15/18 15:00 04/15/18 15:00 04/15/18 15:00 04/15/18 15:00 Intake and Output: 04/15/18 04/15/18 06:59 18:59 Intake Total 250 Balance 250 - Medications Medications: Current Medications Hydrochlorothiazide (Hydrodiuril) 25 mg PO DAILY [facility] Last Admin: 04/15/18 10:10 Dose: Not Given Piperacillin Sod/Tazobactam Sod (Zosyn 3.375 Gm Iv Premix) 3.375 gm in 50 mls @ 200 mls/hr IVPB Q8H [facility]; Protocol Last Admin: 04/15/18 17:40 Dose: 200 mls/hr Vancomycin/Sodium Chloride (Vancomycin 1 Gm/Ns 200 Ml) 1 gm in 200 mls @ 133.333 mls/hr IVPB Q12H [facility]; Protocol Stop: 04/20/18 11:01 Last Admin: 04/15/18 11:21 Dose: 133.333 mls/hr Ferric Sodium Gluconate Complex 125 mg/ Sodium Chloride 110 mls @ 110 mls/hr IVPB DAILY [facility] Stop: 04/23/18 09:31 Last Admin: 04/15/18 10:10 Dose: Not Given Influenza Virus Vaccine (Fluzone Quad [id number]) 60 mcg IM .ONCE ONE Stop: 04/16/18 10:01 Lisinopril (Zestril) 10 mg PO DAILY [facility] Last Admin: 04/15/18 10:10 Dose: Not Given Pantoprazole Sodium (Protonix Ec Tab) 40 mg PO DAILY [facility] Last Admin: 04/15/18 10:11 Dose: 40 mg Pneumococcal Polyvalent Vaccine (Pneumovax 23 Vaccine) 0.5 ml IM .ONCE ONE Stop: 04/16/18 10:01 - Labs Labs: 04/15/18 07:12 04/15/18 07:12 PT 11.7 SECONDS (9.7-12.2) 04/14/18 13:43 INR 1.1 04/14/18 13:43 APTT 34 SECONDS (21-34) 04/14/18 13:43 - Constitutional Appears: Well, Non-toxic, No Acute Distress - Extremities Exam Additional comments: LE focused exam: Vasc: DP/PT pulses fully palpable 2/4 b/l. Skin temperature warm to warm from proximal to distal. CFT < 3 seconds to all digits. Minimal edema noted to medial aspect of left forefoot Neuro: Epicritic and protective sensation grossly diminished b/l Derm: Open wounds b/l at distal first metatarsal head. Minimal erythema noted to left foot wound. No drainage, malodor or other clinical signs of infection appreciated at this time MSK: Severe digital deformities noted to all digits of both feet especially b/l hallux which are deviated so far laterally that the first metatarsal head protrudes from the skin distally as a result. All other digits laterally deviated and contracted - Neurological Exam Neurological Exam: Alert, Awake, Oriented x3 - Psychiatric Exam Psychiatric exam: Normal Affect, Normal Mood Assessment and Plan - Assessment and Plan (Free Text) Assessment: 82F seen and evaluated for b/l great toe disarticulation and lesser digit deformity secondary to RA Plan: Patient seen and evaluated Plan discussed with Dr. Mcmullen Afebrile, absent leukocytosis Continue abx per ID Foot xray: Multiple hammertoe orientations as well as multiple subluxations inferred-overall toes are markedly disorganized in appearance on both feet. Comparisons available to assess for stability. Chronicity is favored. Postsurgical changes as detailed above. No gross fracture seen. There is apparent paucity over some of the osseous structures where clinical history states bone is protruding. Is difficult to assess for any discrete osteomyeli tis or periosteal reaction to suggest this. Vascular calcifications MRI: Read pending Patient will need b/l surgical intervention pending vascular workup; will f/u with Dr. Mcmullen Wounds dressed with betadine, DSD Podiatry will continue to follow while patient in house
[2018-04-15 20:09] LABS: BASO % 0.4 % (0.0-2.0); EOS # 0.1 K/uL (0.0-0.7); EOS % 1.6 % (0.0-4.0); HEMOGLOBIN 7.9 g/dL (11.0-16.0); LYMPH % 27.7 % (20.0-40.0); MEAN CELL VOLUME 67.6 fL (81.0-99.0); MEAN CORPUSCULAR HEMOGLOBIN 21.8 pg (27.0-31.0); MEAN CORPUSCULAR HGB CONC 32.3 g/dL (33.0-37.0); MEAN PLATELET VOLUME 7.1 fL (7.2-11.7); MONO # 0.1 K/uL (0.0-0.8); MONO % 3.3 % (0.0-10.0); NEUT # 2.5 K/uL (1.8-7.0); RBC 3.62 Mil/uL (3.80-5.20); WHITE BLOOD COUNT 3.7 K/uL (4.8-10.8)
[2018-04-15 23:07] LABS: URINE BACTERIA OCC (<OCC); URINE BILIRUBIN NEGATIVE (NEGATIVE); URINE BLOOD 3+ (NEGATIVE); URINE CLARITY Hazy (Clear); URINE COLOR Red (YELLOW); URINE GLUCOSE (UA) NORMAL (Normal); URINE LEUKOCYTE ESTERASE 1+ Leu/uL (Negative); URINE PROTEIN 2+ mg/dL (NEGATIVE); URINE UROBILINOGEN NORMAL mg/dL (0.2-1.0)
[2018-04-16] MEDS: Piperacill/Tazo 3.375gm in Dex 3.375 GM/50 ML BAG IVPB SCH ×3 (02:47→17:47)
--- NOTE | 2018-04-16 03:59 | CP.PCM.PN ---
<Juany Espinoza - Last Filed: 04/16/18 03:17> Subjective - Date & Time of Evaluation Date of Evaluation: 04/16/18 Time of Evaluation: 03:00 - Subjective Subjective: PGY-1 Medicine Progress Note for Dr. Snyder Patient was seen and examined at bedside in no acute distress. Nurse reports no more blood noted on her chucks, and no events overnight. Patient was sleeping comfortably, denies chest pain, shortness of breath, fever, chills, nausea, vomiting, urinary or BM complaints. Tolerating po diet. Objective - Vital Signs/Intake and Output Vital Signs (last 24 hours): Temp Pulse Resp BP Pulse Ox 97.8 F 67 20 99/57 L 94 L 04/16/18 00:11 04/16/18 00:11 04/16/18 00:11 04/16/18 00:11 04/16/18 00:11 Intake and Output: 04/15/18 04/16/18 18:59 06:59 Intake Total 750 Balance 750 - Medications Medications: Current Medications Hydrochlorothiazide (Hydrodiuril) 25 mg PO DAILY [facility] Last Admin: 04/15/18 10:10 Dose: Not Given Piperacillin Sod/Tazobactam Sod (Zosyn 3.375 Gm Iv Premix) 3.375 gm in 50 mls @ 200 mls/hr IVPB Q8H [facility]; Protocol Last Admin: 04/16/18 02:47 Dose: 200 mls/hr Vancomycin/Sodium Chloride (Vancomycin 1 Gm/Ns 200 Ml) 1 gm in 200 mls @ 133.333 mls/hr IVPB Q12H [facility]; Protocol Stop: 04/20/18 11:01 Last Admin: 04/15/18 22:05 Dose: 133.333 mls/hr Ferric Sodium Gluconate Complex 125 mg/ Sodium Chloride 110 mls @ 110 mls/hr IVPB DAILY [facility] Stop: 04/23/18 09:31 Last Admin: 04/15/18 10:10 Dose: Not Given Influenza Virus Vaccine (Fluzone Quad [id number]) 60 mcg IM .ONCE ONE Stop: 04/16/18 10:01 Lisinopril (Zestril) 10 mg PO DAILY [facility] Last Admin: 04/15/18 10:10 Dose: Not Given Pantoprazole Sodium (Protonix Ec Tab) 40 mg PO DAILY [facility] Last Admin: 04/15/18 10:11 Dose: 40 mg Pneumococcal Polyvalent Vaccine (Pneumovax 23 Vaccine) 0.5 ml IM .ONCE ONE Stop: 04/16/18 10:01 - Labs Labs: 04/15/18 20:01 04/15/18 07:12 PT 11.7 SECONDS (9.7-12.2) 04/14/18 13:43 INR 1.1 04/14/18 13:43 APTT 34 SECONDS (21-34) 04/14/18 13:43 - Constitutional Appears: No Acute Distress, Confused - Head Exam Head Exam: ATRAUMATIC, NORMOCEPHALIC - Eye Exam Eye Exam: EOMI Pupil Exam: NORMAL ACCOMODATION - ENT Exam ENT Exam: Mucous Membranes Moist - Respiratory Exam Respiratory Exam: Clear to Ausculation Bilateral, NORMAL BREATHING PATTERN. absent: Decreased Breath Sounds, Rhonchi, Wheezes - Cardiovascular Exam Cardiovascular Exam: REGULAR RHYTHM, +S1, +S2 - GI/Abdominal Exam GI & Abdominal Exam: Soft, Normal Bowel Sounds. absent: Tenderness - Extremities Exam Additional comments: bilateral foot dressings c/d/i. unable to visualize feet - Neurological Exam Neurological Exam: Alert, Awake. absent: Oriented x3 - Psychiatric Exam Psychiatric exam: Normal Affect, Normal Mood - Skin Skin Exam: Dry, Pallor, Warm Assessment and Plan - Assessment and Plan (Free Text) Assessment: 89yoF PMH HTN, RA admitted for osteomyelitis. Plan: Osteomyelitis XR foot (04/14): multiple hammertoe orientations, as well as subluxations. No gross fracture. CTA LE (04/15): moderate calcifications in abdominal aorta and pelvic arteries, moderate calcific plaque in bilateral LE without significant stenosis. ESR 60 Vanco 1g q12 IVPB - started 04/15, vanc trough at 04/16@2200 Zosyn 3.375 q8 IVPB - started 04/14 Afebrile, No leukocytosis Blood Cx (04/14): neg @ [address] Carson Podiatry following- recs appreciated Dr Garcia VascSx following- recs appreciated Dr Jami MELENDEZ following- recs appreciated wound care per podiatry Hypertension Lisinopril 10mg po daily HCTZ 25mg po daily Rheumatoid Arthritis Unknown if patient is on medication Iron deficiency Anemia Ferrlecit 125 IVPB daily Microcytic anemia Hemodynamically stable Repeat CBC in AM Stool occult negative Dementia AAOx1 unknown baseline; will try to contact family again tomorrow PPX DVT: SCDS GI ppx: protonix 40mg hs HHD <Joe Snyder Jr. - Last Filed: 04/26/18 15:20> Objective - Vital Signs/Intake and Output Vital Signs (last 24 hours): Temp Pulse Resp BP Pulse Ox 98.0 F 70 20 112/59 L 95 04/23/18 17:11 04/23/18 17:11 04/23/18 17:11 04/23/18 17:11 04/23/18 17:11 - Labs Labs: 04/23/18 07:42 04/23/18 07:42 PT 13.4 SECONDS (9.7-12.2) H 04/22/18 07:44 INR 1.2 04/22/18 07:44 APTT 36 SECONDS (21-34) H 04/22/18 07:44 Attending/Attestation - Attestation I have personally seen and examined this patient.: Yes I have fully participated in the care of the patient.: Yes I have reviewed all pertinent clinical information, including history, physical exam and plan: Yes Notes (Text): 04/26/18 15:20 Reviewed resident note. Agree with findings and plan of care.
--- NOTE | 2018-04-16 07:33 | CARD ---
APPROVED REPORT Date of service: 04/14/2018 EKG Measurement Heart [id number] <Conclusion> Normal sinus rhythm Left axis deviation Low voltage QRS Inferior infarct, age undetermined Cannot rule out Anterior infarct, age undetermined Abnormal ECG
[2018-04-16 07:50] LABS: BASO % 0.5 % (0.0-2.0); EOS # 0.1 K/uL (0.0-0.7); EOS % 2.2 % (0.0-4.0); HEMOGLOBIN 7.6 g/dL (11.0-16.0); LYMPH # 1.2 K/uL (1.0-4.3); LYMPH % 39.3 % (20.0-40.0); MEAN CELL VOLUME 67.2 fL (81.0-99.0); MEAN CORPUSCULAR HEMOGLOBIN 21.7 pg (27.0-31.0); MEAN CORPUSCULAR HGB CONC 32.3 g/dL (33.0-37.0); MEAN PLATELET VOLUME 7.3 fL (7.2-11.7); MONO # 0.2 K/uL (0.0-0.8); MONO % 5.7 % (0.0-10.0); NEUT # 1.6 K/uL (1.8-7.0); NEUT % 52.3 % (50.0-75.0); NRBC % 0.1 % (0.0-2.0); RBC 3.5 Mil/uL (3.80-5.20); RED CELL DISTRIBUTION WIDTH 18.1 % (11.5-14.5)
[2018-04-16 08:40] LABS: ALB/GLOB RATIO 0.8 (1.0-2.1); ALBUMIN 3.1 g/dL (3.5-5.0); ALT/SGPT 12 U/L (9-52); AST/SGOT 20 U/L (14-36); BLOOD UREA NITROGEN 44 mg/dL (7-17); CALCIUM 8.6 mg/dl (8.6-10.4); GFR NON-AFRICAN AMERICAN > 60
--- NOTE | 2018-04-16 09:11 | CP.PCM.PN ---
Subjective - Date & Time of Evaluation Date of Evaluation: 04/16/18 Time of Evaluation: 09:08 - Subjective Subjective: Vascular Surgery: Dr. Garcia Pt seen and examined. No acute events overnight as per nursing. Pt continues to be at her baseline dementia. Denies complaints at this time. Objective - Vital Signs/Intake and Output Vital Signs (last 24 hours): Temp Pulse Resp BP Pulse Ox 97.5 F L 69 20 108/63 95 04/16/18 07:00 04/16/18 07:00 04/16/18 07:00 04/16/18 07:00 04/16/18 07:00 Intake and Output: 04/16/18 04/16/18 06:59 18:59 Intake Total 750 Balance 750 - Medications Medications: Current Medications Hydrochlorothiazide (Hydrodiuril) 25 mg PO DAILY [facility] Last Admin: 04/15/18 10:10 Dose: Not Given Piperacillin Sod/Tazobactam Sod (Zosyn 3.375 Gm Iv Premix) 3.375 gm in 50 mls @ 200 mls/hr IVPB Q8H [facility]; Protocol Last Admin: 04/16/18 02:47 Dose: 200 mls/hr Vancomycin/Sodium Chloride (Vancomycin 1 Gm/Ns 200 Ml) 1 gm in 200 mls @ 133.333 mls/hr IVPB Q12H [facility]; Protocol Stop: 04/20/18 11:01 Last Admin: 04/15/18 22:05 Dose: 133.333 mls/hr Ferric Sodium Gluconate Complex 125 mg/ Sodium Chloride 110 mls @ 110 mls/hr IVPB DAILY [facility] Stop: 04/23/18 09:31 Last Admin: 04/15/18 10:10 Dose: Not Given Influenza Virus Vaccine (Fluzone Quad [id number]) 60 mcg IM .ONCE ONE Stop: 04/16/18 10:01 Lisinopril (Zestril) 10 mg PO DAILY [facility] Last Admin: 04/15/18 10:10 Dose: Not Given Pantoprazole Sodium (Protonix Ec Tab) 40 mg PO DAILY [facility] Last Admin: 04/15/18 10:11 Dose: 40 mg Pneumococcal Polyvalent Vaccine (Pneumovax 23 Vaccine) 0.5 ml IM .ONCE ONE Stop: 04/16/18 10:01 - Labs Labs: 04/16/18 07:41 04/16/18 07:41 PT 11.7 SECONDS (9.7-12.2) 04/14/18 13:43 INR 1.1 04/14/18 13:43 APTT 34 SECONDS (21-34) 04/14/18 13:43 - Constitutional Appears: No Acute Distress - Eye Exam Eye Exam: Normal appearance - Respiratory Exam Respiratory Exam: NORMAL BREATHING PATTERN - GI/Abdominal Exam GI & Abdominal Exam: Soft - Extremities Exam Additional comments: b/l LE warm, foot ulcers b/l. dressings clean/dry - Neurological Exam Neurological Exam: Awake - Skin Skin Exam: Dry, Warm Assessment and Plan - Assessment and Plan (Free Text) Assessment: 82F with PVD and b/l foot ulcers Plan: - will discuss recs with Dr. Garcia regarding further vascular intervention Mona
[2018-04-16] MEDS: Pantoprazole 40 mg EC Tab PO SCH (09:58)
[2018-04-16] MEDS ORDERED: Pneumococcal 23-Valent Vaccine IM ONE (10:00)
[2018-04-16] MEDS ORDERED: Influenza Vaccine 60 MCG/0.5 ML SYR (3 yr & up) IM ONE (10:00)
[2018-04-16] MEDS: Ferric Sodium Gluconat Complex 125 MG in Sodium Chloride 0.9% 100 ML IVPB SCH (10:30)
--- NOTE | 2018-04-16 10:57 | CP.PCM.PN ---
Subjective - Date & Time of Evaluation Date of Evaluation: 04/16/18 Time of Evaluation: 10:56 - Subjective Subjective: Podiatry Progress Note for Dr. Mcmullen 82F seen and evaluated for b/l great toe disarticulation and lesser digit deformity secondary to RA. Patient suffers from dementia and is unable to relate how she feels. Per nursing, no acute overnight events. Objective - Vital Signs/Intake and Output Vital Signs (last 24 hours): Temp Pulse Resp BP Pulse Ox 97.5 F L 72 20 92/56 L 95 04/16/18 07:00 04/16/18 10:00 04/16/18 07:00 04/16/18 10:00 04/16/18 07:00 Intake and Output: 04/16/18 04/16/18 06:59 18:59 Intake Total 750 Balance 750 - Medications Medications: Current Medications Hydrochlorothiazide (Hydrodiuril) 25 mg PO DAILY [facility] Last Admin: 04/16/18 09:58 Dose: Not Given Piperacillin Sod/Tazobactam Sod (Zosyn 3.375 Gm Iv Premix) 3.375 gm in 50 mls @ 200 mls/hr IVPB Q8H [facility]; Protocol Last Admin: 04/16/18 09:57 Dose: 200 mls/hr Vancomycin/Sodium Chloride (Vancomycin 1 Gm/Ns 200 Ml) 1 gm in 200 mls @ 133.333 mls/hr IVPB Q12H [facility]; Protocol Stop: 04/20/18 11:01 Last Admin: 04/15/18 22:05 Dose: 133.333 mls/hr Ferric Sodium Gluconate Complex 125 mg/ Sodium Chloride 110 mls @ 110 mls/hr IVPB DAILY [facility] Stop: 04/23/18 09:31 Last Admin: 04/15/18 10:10 Dose: Not Given Lisinopril (Zestril) 10 mg PO DAILY [facility] Last Admin: 04/16/18 09:58 Dose: Not Given Pantoprazole Sodium (Protonix Ec Tab) 40 mg PO DAILY [facility] Last Admin: 04/16/18 09:58 Dose: 40 mg - Labs Labs: 04/16/18 07:41 04/16/18 07:41 PT 11.7 SECONDS (9.7-12.2) 04/14/18 13:43 INR 1.1 04/14/18 13:43 APTT 34 SECONDS (21-34) 04/14/18 13:43 - Constitutional Appears: Well, Non-toxic - Head Exam Head Exam: ATRAUMATIC - Extremities Exam Additional comments: LE focused exam: Vasc: DP/PT pulses fully palpable 2/4 b/l. Skin temperature warm to warm from proximal to distal. CFT < 3 seconds to all digits. Minimal edema noted to medial aspect of left forefoot Neuro: Epicritic and protective sensation grossly diminished b/l Derm: Open wounds b/l at distal first metatarsal head. Minimal erythema noted to left foot wound. No drainage, malodor or other clinical signs of infection appreciated at this time MSK: Severe digital deformities noted to all digits of both feet especially b/l hallux which are deviated so far laterally that the first metatarsal head protrudes from the skin distally as a result. 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 Mcmullen Afebrile, absent leukocytosis Continue abx per ID Foot xray: Multiple hammertoe orientations as well as multiple subluxations inferred-overall toes are markedly disorganized in appearance on both feet. Comparisons available to assess for stability. Chronicity is favored. Postsur gical changes as detailed above. No gross fracture seen. There is apparent paucity over some of the osseous structures where clinical history states bone is protruding. Is difficult to assess for any discrete osteomyelitis or periosteal reaction to suggest this. Vascular calcifications MRI: Read pending Patient will need b/l surgical intervention pending vascular workup; will f/u with Dr. Mcmullen, to be scheduled for friday. Wounds dressed with betadine, DSD Podiatry will continue to follow while patient in house
[2018-04-16] MEDS: Vancomycin 1 gm/NS 200 ml 1 GM/200 ML BAG IVPB SCH ×2 (11:50→22:40)
--- NOTE | 2018-04-16 15:31 | CARD ---
APPROVED REPORT Date of service: 04/15/2018 EKG Measurement Heart [id number] ID [id number] <Conclusion> Normal sinus rhythm Left axis deviation Low voltage QRS Inferior infarct, age undetermined Cannot rule out Anterior infarct, age undetermined Low voltage Abnormal ECG
[2018-04-17] MEDS: Piperacill/Tazo 3.375gm in Dex 3.375 GM/50 ML BAG IVPB SCH ×3 (01:19→17:27)
[2018-04-17 08:20] LABS: BASO % 1.7 % (0.0-2.0); EOS # 0.1 K/uL (0.0-0.7); EOS % 3.8 % (0.0-4.0); HEMOGLOBIN 8.4 g/dL (11.0-16.0); LYMPH # 1.2 K/uL (1.0-4.3); LYMPH % 43.8 % (20.0-40.0); MEAN CORPUSCULAR HEMOGLOBIN 22.1 pg (27.0-31.0); MEAN CORPUSCULAR HGB CONC 31.7 g/dL (33.0-37.0); MONO # 0.2 K/uL (0.0-0.8); NEUT # 1.2 K/uL (1.8-7.0); NEUT % 43.7 % (50.0-75.0); NRBC % 0.1 % (0.0-2.0); RBC 3.79 Mil/uL (3.80-5.20); WHITE BLOOD COUNT 2.7 K/uL (4.8-10.8)
[2018-04-17 08:26] LABS: MEAN CELL VOLUME 69.7 fL (81.0-99.0)
[2018-04-17 08:35] LABS: ALB/GLOB RATIO 0.9 (1.0-2.1); ALT/SGPT 12 U/L (9-52); AST/SGOT 17 U/L (14-36); BLOOD UREA NITROGEN 30 mg/dL (7-17); CALCIUM 8.3 mg/dl (8.6-10.4); GFR NON-AFRICAN AMERICAN > 60
[2018-04-17] MEDS: Ferric Sodium Gluconat Complex 125 MG in Sodium Chloride 0.9% 100 ML IVPB SCH (09:05)
[2018-04-17] MEDS: Pantoprazole 40 mg EC Tab PO SCH (10:02)
[2018-04-17] MEDS: Vancomycin 1 gm/NS 200 ml 1 GM/200 ML BAG IVPB SCH ×2 (11:01→21:59)
--- NOTE | 2018-04-17 12:13 | CP.PCM.PN ---
<Kenton Carr - Last Filed: 04/17/18 19:28> Subjective - Date & Time of Evaluation Date of Evaluation: 04/17/18 Time of Evaluation: 12:00 - Subjective Subjective: PGY-1 Medicine Progress Note for Dr. Snyder Patient was seen and examined at bedside. Pt is resting comfortably and in no distress. She is pleasantly demented as baseline. She denies chest pain, shortness of breath, fever, chills, nausea, vomiting, urinary or BM complaints. Pt was transfused 1 unit of pRBCs at midnight. Objective - Vital Signs/Intake and Output Vital Signs (last 24 hours): Temp Pulse Resp BP Pulse Ox 97.6 F 63 20 108/53 L 96 04/17/18 08:00 04/17/18 10:02 04/17/18 08:00 04/17/18 10:02 04/17/18 08:00 Intake and Output: 04/17/18 04/17/18 06:59 18:59 Intake Total 1250 Balance 1250 - Medications Medications: Current Medications Diphenhydramine HCl (Benadryl) 25 mg PO Q6 PRN PRN Reason: itching Last Admin: 04/16/18 20:06 Dose: 25 mg Hydrochlorothiazide (Hydrodiuril) 25 mg PO DAILY [facility] Last Admin: 04/17/18 10:02 Dose: 25 mg Piperacillin Sod/Tazobactam Sod (Zosyn 3.375 Gm Iv Premix) 3.375 gm in 50 mls @ 200 mls/hr IVPB Q8H [facility]; Protocol Last Admin: 04/17/18 10:03 Dose: 200 mls/hr Vancomycin/Sodium Chloride (Vancomycin 1 Gm/Ns 200 Ml) 1 gm in 200 mls @ 133.333 mls/hr IVPB Q12H [facility]; Protocol Stop: 04/20/18 11:01 Last Admin: 04/17/18 11:01 Dose: Not Given Ferric Sodium Gluconate Complex 125 mg/ Sodium Chloride 110 mls @ 110 mls/hr IVPB DAILY [facility] Stop: 04/23/18 09:31 Last Admin: 04/17/18 09:05 Dose: 110 mls/hr Lisinopril (Zestril) 10 mg PO DAILY [facility] Last Admin: 04/17/18 10:02 Dose: 10 mg Pantoprazole Sodium (Protonix Ec Tab) 40 mg PO DAILY [facility] Last Admin: 04/17/18 10:02 Dose: 40 mg - Labs Labs: 04/17/18 08:08 04/17/18 08:08 PT 11.7 SECONDS (9.7-12.2) 04/14/18 13:43 INR 1.1 04/14/18 13:43 APTT 34 SECONDS (21-34) 04/14/18 13:43 - Additional Findings Additional findings: - Constitutional Appears: No Acute Distress, Confused at baseline - Head Exam Head Exam: ATRAUMATIC, NORMOCEPHALIC - Eye Exam Eye Exam: EOMI Pupil Exam: NORMAL ACCOMODATION - ENT Exam ENT Exam: Mucous Membranes Moist - Respiratory Exam Respiratory Exam: Clear to Ausculation Bilateral, NORMAL BREATHING PATTERN. absent: Decreased Breath Sounds, Rhonchi, Wheezes - Cardiovascular Exam Cardiovascular Exam: REGULAR RHYTHM, +S1, +S2. absent: tachycardia - GI/Abdominal Exam GI & Abdominal Exam: Soft, Normal Bowel Sounds. absent: Tenderness, distension - Extremities Exam Additional comments: bilateral foot dressings c/d/i. unable to visualize feet - Neurological Exam Neurological Exam: Alert, Awake. Oriented to self. absent: Oriented x3. - Psychiatric Exam Psychiatric exam: Normal Affect, Normal Mood - Skin Skin Exam: Dry, Pallor, Warm Assessment and Plan - Assessment and Plan (Free Text) Assessment: 89yoF PMH HTN, RA admitted for osteomyelitis. Plan: Osteomyelitis -XR foot (04/14): multiple hammertoe orientations, as well as subluxations. No gross fracture. -CTA LE (04/15): moderate calcifications in abdominal aorta and pelvic arteries, moderate calcific plaque in bilateral LE without significant stenosis. -ESR elevated at 60 on admission -continue Vanco 1g q12 IVPB - started 04/15, vanc trough at 04/16@2200 -continue Zosyn 3.375 q8 IVPB - started 04/14 -Afebrile, No leukocytosis -Blood Cx (04/14): neg @ 48 hours -Dr Carson Podiatry following- recs appreciated -Dr Garcia VascSx following- recs appreciated -Dr Amanda MELENDEZ following- recs appreciated -wound care per podiatry -MRI results are pending Hypertension -Lisinopril 10mg po daily -HCTZ 25mg po daily Rheumatoid Arthritis -Unknown if patient is on medication Iron deficiency Anemia - pt received 1 unit of pRBCs at on night of 04/16; H/H shows appropriate response - Hgb is currently 8.4, up from 7.6 -Ferrlecit 125 IVPB daily -Microcytic anemia -Hemodynamically stable -Stool occult negative Dementia -AAOx1 -unknown baseline; will try to contact family again tomorrow PPX -DVT: SCDS -GI ppx: protonix 40mg hs -HHD Case discussed with Dr. Snyder. All medical management as per Dr. Claudio Carr PGY-1 <Joe Snyder Jr. - Last Filed: 04/26/18 15:18> Objective - Vital Signs/Intake and Output Vital Signs (last 24 hours): Temp Pulse Resp BP Pulse Ox 98.0 F 70 20 112/59 L 95 04/23/18 17:11 04/23/18 17:11 04/23/18 17:11 04/23/18 17:11 04/23/18 17:11 - Labs Labs: 04/23/18 07:42 04/23/18 07:42 PT 13.4 SECONDS (9.7-12.2) H 04/22/18 07:44 INR 1.2 04/22/18 07:44 APTT 36 SECONDS (21-34) H 04/22/18 07:44 Attending/Attestation - Attestation I have personally seen and examined this patient.: Yes I have fully participated in the care of the patient.: Yes I have reviewed all pertinent clinical information, including history, physical exam and plan: Yes Notes (Text): 04/26/18 15:18 Reviewed resident note. Agree with findings and plan of care.
--- NOTE | 2018-04-17 14:42 | VASCLAB ---
Date of service: 04/17/2018 STUDY DESCRIPTION: Lower Extremity Arterial Exam (PVR). HISTORY: chronic BL foot wounds, eval PVD PRIORS: None. TECHNIQUE: Pulse volume recording waveforms and segmental pressures of bilateral lower extremities at multiple levels were obtained. Ankle Brachial Indices (ABIs) were calculated. Report prepared by LISA Chatterjee, RVT RIGHT LOWER EXTREMITY: * Brachial artery: Pressure - 96 mmHg. * High thigh: Pressure - mmHg: Ratio - : PVR waveform - Pulsatile * Low thigh: Pressure - mmHg: Ratio - PVR waveform: Pulsatile * Calf: Pressure - 118 mmHg: Ratio - 1.23 PVR waveform: Pulsatile * Posterior tibial Artery: Pressure - 97 mmHg: Ratio - 1.01 PVR waveform: Pulsatile * Dorsalis pedis Artery: Pressure - 97 mmHg: Ratio - 1.01 PVR waveform: Pulsatile * Great toe: Pressure - mmHg: Ratio - PVR waveform: Ankle brachial index (OLIVA): 1.01 LEFT LOWER EXTREMITY: * Brachial artery: Pressure - 78 mmHg. * High thigh: Pressure - mmHg: Ratio - : PVR waveform - Pulsatile * Low thigh: Pressure - mmHg: Ratio - PVR waveform: Pulsatile * Calf: Pressure - 173 mmHg: Ratio - 1.80 PVR waveform: Pulsatile * Posterior tibial Artery: Pressure - 90 mmHg: Ratio - 0.94 PVR waveform: Pulsatile * Dorsalis pedis Artery: Pressure - 93 mmHg: Ratio - 0.97 PVR waveform: Pulsatile * Great toe: Pressure - mmHg: Ratio - PVR waveform: Ankle brachial index (OLIVA): 0.97 OTHER FINDINGS: Right: Left: IMPRESSION: Right: There was no evidence of hemodynamically significant arterial insufficiency in the right lower extremity. Left: There was no evidence of hemodynamically significant arterial insufficiency in the left lower extremity.
--- NOTE | 2018-04-17 17:19 | CP.PCM.PN ---
Subjective - Date & Time of Evaluation Date of Evaluation: 04/17/18 Time of Evaluation: 08:00 - Subjective Subjective: vanco held dose adjusted exam unchanged- exposed bone Objective - Vital Signs/Intake and Output Vital Signs (last 24 hours): Temp Pulse Resp BP Pulse Ox 97.6 F 63 20 108/53 L 96 04/17/18 08:00 04/17/18 10:02 04/17/18 08:00 04/17/18 10:02 04/17/18 08:00 Intake and Output: 04/17/18 04/17/18 06:59 18:59 Intake Total 1250 450 Balance 1250 450 - Medications Medications: Current Medications Diphenhydramine HCl (Benadryl) 25 mg PO Q6 PRN PRN Reason: itching Last Admin: 04/16/18 20:06 Dose: 25 mg Hydrochlorothiazide (Hydrodiuril) 25 mg PO DAILY [facility] Last Admin: 04/17/18 10:02 Dose: 25 mg Piperacillin Sod/Tazobactam Sod (Zosyn 3.375 Gm Iv Premix) 3.375 gm in 50 mls @ 200 mls/hr IVPB Q8H [facility]; Protocol Last Admin: 04/17/18 10:03 Dose: 200 mls/hr Vancomycin/Sodium Chloride (Vancomycin 1 Gm/Ns 200 Ml) 1 gm in 200 mls @ 133.333 mls/hr IVPB Q12H [facility]; Protocol Stop: 04/20/18 11:01 Last Admin: 04/17/18 11:01 Dose: Not Given Ferric Sodium Gluconate Complex 125 mg/ Sodium Chloride 110 mls @ 110 mls/hr IVPB DAILY [facility] Stop: 04/23/18 09:31 Last Admin: 04/17/18 09:05 Dose: 110 mls/hr Lisinopril (Zestril) 10 mg PO DAILY [facility] Last Admin: 04/17/18 10:02 Dose: 10 mg Pantoprazole Sodium (Protonix Ec Tab) 40 mg PO DAILY [facility] Last Admin: 04/17/18 10:02 Dose: 40 mg - Labs Labs: 04/17/18 08:08 04/17/18 08:08 PT 11.7 SECONDS (9.7-12.2) 04/14/18 13:43 INR 1.1 04/14/18 13:43 APTT 34 SECONDS (21-34) 04/14/18 13:43 - Constitutional Appears: Non-toxic, Confused, Cachectic, Chronically Ill - Head Exam Head Exam: NORMOCEPHALIC - Eye Exam Eye Exam: PERRL - ENT Exam ENT Exam: Mucous Membranes Dry - Neck Exam Neck Exam: absent: Lymphadenopathy - Respiratory Exam Respiratory Exam: Decreased Breath Sounds - Cardiovascular Exam Cardiovascular Exam: REGULAR RHYTHM, +S1, +S2 - GI/Abdominal Exam GI & Abdominal Exam: Distended, Soft. absent: Tenderness - Rectal Exam Rectal Exam: Deferred - Exam Exam: NORMAL INSPECTION - Extremities Exam Extremities Exam: absent: Pedal Edema - Back Exam Back Exam: absent: CVA tenderness (L), CVA tenderness (R) - Neurological Exam Neurological Exam: Alert, Altered, Awake - Psychiatric Exam Psychiatric exam: Depressed - Skin Skin Exam: Dry Assessment and Plan (1) Bone and joint malformation Status: Acute (2) Osteomyelitis Status: Acute (3) Rheumatoid arthritis of foot Status: Acute - Assessment and Plan (Free Text) Assessment: for disarticulation/ possible amputation ppoor prognosis
--- NOTE | 2018-04-17 17:57 | CP.PCM.PN ---
Subjective - Date & Time of Evaluation Date of Evaluation: 04/17/18 Time of Evaluation: 17:53 - Subjective Subjective: Vascular Surgery Progress Note for Dr. Garcia This 82F was seen and examined this AM at bedside. Pt received 1PRBC overnight. She denies any chest pain or SOB. No new complaints at this time. Objective - Vital Signs/Intake and Output Vital Signs (last 24 hours): Temp Pulse Resp BP Pulse Ox 97.6 F 63 20 108/53 L 96 04/17/18 08:00 04/17/18 10:02 04/17/18 08:00 04/17/18 10:02 04/17/18 08:00 Intake and Output: 04/17/18 04/17/18 06:59 18:59 Intake Total 1250 450 Balance 1250 450 - Medications Medications: Current Medications Diphenhydramine HCl (Benadryl) 25 mg PO Q6 PRN PRN Reason: itching Last Admin: 04/16/18 20:06 Dose: 25 mg Hydrochlorothiazide (Hydrodiuril) 25 mg PO DAILY [facility] Last Admin: 04/17/18 10:02 Dose: 25 mg Piperacillin Sod/Tazobactam Sod (Zosyn 3.375 Gm Iv Premix) 3.375 gm in 50 mls @ 200 mls/hr IVPB Q8H [facility]; Protocol Last Admin: 04/17/18 17:27 Dose: 200 mls/hr Vancomycin/Sodium Chloride (Vancomycin 1 Gm/Ns 200 Ml) 1 gm in 200 mls @ 133.333 mls/hr IVPB Q12H [facility]UE[facility]; Protocol Stop: 04/20/18 11:01 Last Admin: 04/17/18 11:01 Dose: Not Given Ferric Sodium Gluconate Complex 125 mg/ Sodium Chloride 110 mls @ 110 mls/hr IVPB DAILY [facility] Stop: 04/23/18 09:31 Last Admin: 04/17/18 09:05 Dose: 110 mls/hr Lisinopril (Zestril) 10 mg PO DAILY [facility] Last Admin: 04/17/18 10:02 Dose: 10 mg Pantoprazole Sodium (Protonix Ec Tab) 40 mg PO DAILY [facility] Last Admin: 04/17/18 10:02 Dose: 40 mg - Labs Labs: 04/17/18 08:08 04/17/18 08:08 PT 11.7 SECONDS (9.7-12.2) 04/14/18 13:43 INR 1.1 04/14/18 13:43 APTT 34 SECONDS (21-34) 04/14/18 13:43 - Constitutional Appears: No Acute Distress - Eye Exam Eye Exam: Normal appearance - Respiratory Exam Respiratory Exam: NORMAL BREATHING PATTERN - GI/Abdominal Exam GI & Abdominal Exam: Soft - Extremities Exam Additional comments: b/l LE warm, foot ulcers b/l. dressings clean/dry - Neurological Exam Neurological Exam: Awake - Skin Skin Exam: Dry, Warm Assessment and Plan - Assessment and Plan (Free Text) Assessment: 82F with PVD and b/l LE ulcers CTA showed no signs of clinically significant stenosis No surgical intervention indicated at this time D/W Dr. Jose Hall PGY3
[2018-04-18 07:51] LABS: BASO # 0.1 K/uL (0.0-0.2); BASO % 1.9 % (0.0-2.0); EOS # 0.1 K/uL (0.0-0.7); EOS % 2.8 % (0.0-4.0); HEMOGLOBIN 8.4 g/dL (11.0-16.0); LYMPH # 1.2 K/uL (1.0-4.3); LYMPH % 29.8 % (20.0-40.0); MEAN CELL VOLUME 70.2 fL (81.0-99.0); MEAN CORPUSCULAR HEMOGLOBIN 23.1 pg (27.0-31.0); MEAN CORPUSCULAR HGB CONC 32.8 g/dL (33.0-37.0); MEAN PLATELET VOLUME 7.2 fL (7.2-11.7); MONO # 0.3 K/uL (0.0-0.8); MONO % 8.5 % (0.0-10.0); NEUT # 2.3 K/uL (1.8-7.0); RBC 3.63 Mil/uL (3.80-5.20); RED CELL DISTRIBUTION WIDTH 19.4 % (11.5-14.5)
[2018-04-18 08:35] LABS: ALB/GLOB RATIO 0.8 (1.0-2.1); ALBUMIN 2.8 g/dL (3.5-5.0); ALT/SGPT 16 U/L (9-52); AST/SGOT 17 U/L (14-36); BLOOD UREA NITROGEN 23 mg/dL (7-17); CALCIUM 8.2 mg/dl (8.6-10.4); GFR NON-AFRICAN AMERICAN > 60
[2018-04-18] MEDS: Pantoprazole 40 mg EC Tab PO SCH (09:27)
[2018-04-18] MEDS: Ferric Sodium Gluconat Complex 125 MG in Sodium Chloride 0.9% 100 ML IVPB SCH (11:01)
[2018-04-18] MEDS: Vancomycin 1 gm/NS 200 ml 1 GM/200 ML BAG IVPB SCH (11:51)
[2018-04-18 14:05] LABS: BASO % 1.1 % (0.0-2.0); EOS # 0.1 K/uL (0.0-0.7); EOS % 2.7 % (0.0-4.0); HEMOGLOBIN 9.2 g/dL (11.0-16.0); LYMPH % 32.9 % (20.0-40.0); MEAN CELL VOLUME 70.1 fL (81.0-99.0); MEAN CORPUSCULAR HEMOGLOBIN 22.6 pg (27.0-31.0); MEAN CORPUSCULAR HGB CONC 32.2 g/dL (33.0-37.0); MEAN PLATELET VOLUME 7.2 fL (7.2-11.7); MONO # 0.2 K/uL (0.0-0.8); MONO % 6.4 % (0.0-10.0); NEUT # 1.7 K/uL (1.8-7.0); NEUT % 56.9 % (50.0-75.0); RBC 4.06 Mil/uL (3.80-5.20); RED CELL DISTRIBUTION WIDTH 19.9 % (11.5-14.5)
[2018-04-18 14:13] LABS: INR 1.2; PROTHROMBIN TIME 12.6 SECONDS (9.7-12.2)
--- NOTE | 2018-04-18 14:54 | CP.PCM.PN ---
<Kenton Carr - Last Filed: 04/18/18 14:51> Subjective - Date & Time of Evaluation Date of Evaluation: 04/18/18 Time of Evaluation: 11:00 - Subjective Subjective: PGY-1 Medicine progress note for Dr. Snyder Pt was seen and examined at bedside. Pt is resting comfortably. No acute events overnight. Pt has no complaints at this time. Pt denies chills, chest pain, sob, abdominal pain, n/v/d, any signs of bleeding, leg pain or swelling. Objective - Vital Signs/Intake and Output Vital Signs (last 24 hours): Temp Pulse Resp BP Pulse Ox 97.4 F L 60 20 121/60 66 L 04/18/18 07:30 04/18/18 09:08 04/18/18 07:30 04/18/18 09:08 04/18/18 07:30 - Medications Medications: Current Medications Diphenhydramine HCl (Benadryl) 25 mg PO Q6 PRN PRN Reason: itching Last Admin: 04/16/18 20:06 Dose: 25 mg Hydrochlorothiazide (Hydrodiuril) 25 mg PO DAILY [facility] Last Admin: 04/18/18 09:27 Dose: 25 mg Ferric Sodium Gluconate Complex 125 mg/ Sodium Chloride 110 mls @ 110 mls/hr IVPB DAILY [facility] Stop: 04/23/18 09:31 Last Admin: 04/18/18 11:01 Dose: 110 mls/hr Lisinopril (Zestril) 10 mg PO DAILY [facility] Last Admin: 04/18/18 09:28 Dose: 10 mg Lorazepam (Ativan) 0.5 mg IVP ONCE PRN PRN Reason: agitation for mri Pantoprazole Sodium (Protonix Ec Tab) 40 mg PO DAILY [facility] Last Admin: 04/18/18 09:27 Dose: 40 mg - Labs Labs: 04/18/18 13:53 04/18/18 07:33 PT 12.6 SECONDS (9.7-12.2) H 04/18/18 13:53 INR 1.2 04/18/18 13:53 APTT 38 SECONDS (21-34) H 04/18/18 13:53 - Additional Findings Additional findings: - Constitutional Appears: No Acute Distress, Confused at baseline - Head Exam Head Exam: ATRAUMATIC, NORMOCEPHALIC - Eye Exam Eye Exam: EOMI - ENT Exam ENT Exam: Mucous Membranes Moist - Respiratory Exam Respiratory Exam: Clear to Ausculation Bilateral, NORMAL BREATHING PATTERN. absent: Decreased Breath Sounds, Rhonchi, Wheezes - Cardiovascular Exam Cardiovascular Exam: REGULAR RHYTHM, +S1, +S2. absent: tachycardia - GI/Abdominal Exam GI & Abdominal Exam: Soft, Normal Bowel Sounds. absent: Tenderness, distension - Extremities Exam Good capillary refill. Additional comments: bilateral foot dressings c/d/i. unable to visualize feet - Neurological Exam Neurological Exam: Alert, Awake. Oriented to self. absent: Oriented x3. - Psychiatric Exam Psychiatric exam: Normal Affect, Normal Mood - Skin Skin Exam: Dry, Pallor, Warm Assessment and Plan - Assessment and Plan (Free Text) Assessment: 89yoF PMH HTN, RA admitted for osteomyelitis. Plan: Osteomyelitis -XR foot (04/14): multiple hammertoe orientations, as well as subluxations. No gross fracture. -CTA LE (04/15): moderate calcifications in abdominal aorta and pelvic arteries, moderate calcific plaque in bilateral LE without significant stenosis. -ESR elevated at 60 on admission -Vanco held as per ID -continue Zosyn 3.375 q8 IVPB - started 04/14 -Afebrile, No leukocytosis -Blood Cx (04/14): neg for 4 days -Dr Carson Podiatry following- recs appreciated - will f/u with Dr. Mcmullen for possible amputation, to be scheduled for Friday. -Dr Jose Parsons following- recs appreciated - CTA showed no signs of clinically significant stenosis. No surgical intervention indicated at this time -Dr Amanda MELENDEZ following- recs appreciated - hold vanc -wound care per podiatry -f/u MRI -will give Ativan PRN for agitation prior to MRI Hypertension -Lisinopril 10mg po daily -HCTZ 25mg po daily Rheumatoid Arthritis -Unknown if patient is on medication Iron deficiency Anemia - pt received 1 unit of pRBCs at on night of 04/16; H/H shows appropriate response - H/H is stable -Ferrlecit 125 IVPB daily -Microcytic anemia -Hemodynamically stable -Stool occult negative Dementia -AAOx1 -unknown baseline; will discuss pt's plan and prognosis with family PPX -DVT: SCDS -GI ppx: protonix 40mg hs -HHD Case discussed with Dr. Snyder. All medical management as per Dr. Claudio Carr PGY-1 <Joe Snyder Jr. - Last Filed: 04/26/18 15:15> Objective - Vital Signs/Intake and Output Vital Signs (last 24 hours): Temp Pulse Resp BP Pulse Ox 98.0 F 70 20 112/59 L 95 04/23/18 17:11 04/23/18 17:11 04/23/18 17:11 04/23/18 17:11 04/23/18 17:11 - Labs Labs: 04/23/18 07:42 04/23/18 07:42 PT 13.4 SECONDS (9.7-12.2) H 04/22/18 07:44 INR 1.2 04/22/18 07:44 APTT 36 SECONDS (21-34) H 04/22/18 07:44 Attending/Attestation - Attestation I have personally seen and examined this patient.: Yes I have fully participated in the care of the patient.: Yes I have reviewed all pertinent clinical information, including history, physical exam and plan: Yes Notes (Text): 04/26/18 15:13 Reviewed resident note. Agree with findings and plan of care.
[2018-04-18] MEDS: Piperacill/Tazo 3.375gm in Dex 3.375 GM/50 ML BAG IVPB SCH ×2 (17:43→22:25)
[2018-04-19] MEDS: Piperacill/Tazo 3.375gm in Dex 3.375 GM/50 ML BAG IVPB SCH ×3 (06:32→22:46)
[2018-04-19 08:40] LABS: BASO % 1.2 % (0.0-2.0); EOS # 0.1 K/uL (0.0-0.7); EOS % 2.8 % (0.0-4.0); HEMOGLOBIN 8.8 g/dL (11.0-16.0); LYMPH # 1.1 K/uL (1.0-4.3); LYMPH % 35.3 % (20.0-40.0); MEAN CELL VOLUME 69.6 fL (81.0-99.0); MEAN CORPUSCULAR HEMOGLOBIN 22.6 pg (27.0-31.0); MEAN CORPUSCULAR HGB CONC 32.5 g/dL (33.0-37.0); MONO # 0.2 K/uL (0.0-0.8); MONO % 7.6 % (0.0-10.0); NEUT # 1.6 K/uL (1.8-7.0); NEUT % 53.1 % (50.0-75.0); RBC 3.91 Mil/uL (3.80-5.20); RED CELL DISTRIBUTION WIDTH 19.8 % (11.5-14.5); WHITE BLOOD COUNT 3.1 K/uL (4.8-10.8)
[2018-04-19 09:08] LABS: ALB/GLOB RATIO 0.9 (1.0-2.1); ALT/SGPT 10 U/L (9-52); AST/SGOT 15 U/L (14-36); BLOOD UREA NITROGEN 18 mg/dL (7-17); CALCIUM 7.8 mg/dl (8.6-10.4); GFR NON-AFRICAN AMERICAN > 60
[2018-04-19] MEDS: Pantoprazole 40 mg EC Tab PO SCH (09:26)
[2018-04-19] MEDS: Ferric Sodium Gluconat Complex 125 MG in Sodium Chloride 0.9% 100 ML IVPB SCH (09:30)
--- NOTE | 2018-04-19 10:41 | CP.PCM.PN ---
Subjective - Date & Time of Evaluation Date of Evaluation: 04/19/18 Time of Evaluation: 10:40 - Subjective Subjective: Podiatry Progress Note for Dr. Mcmullen 82F seen and evaluated for b/l great toe disarticulation and lesser digit deformity secondary to RA. Patient suffers from dementia and is unable to relate how she feels. Per nursing, no acute overnight events Objective - Vital Signs/Intake and Output Vital Signs (last 24 hours): Temp Pulse Resp BP Pulse Ox 97.8 F 72 20 92/56 L 95 04/19/18 07:51 04/19/18 09:28 04/19/18 07:51 04/19/18 09:28 04/19/18 07:51 Intake and Output: 04/19/18 04/19/18 06:59 18:59 Output Total 500 Balance -500 - Medications Medications: Current Medications Diphenhydramine HCl (Benadryl) 25 mg PO Q6 PRN PRN Reason: itching Last Admin: 04/16/18 20:06 Dose: 25 mg Hydrochlorothiazide (Hydrodiuril) 25 mg PO DAILY [facility] Last Admin: 04/19/18 09:28 Dose: Not Given Ferric Sodium Gluconate Complex 125 mg/ Sodium Chloride 110 mls @ 110 mls/hr IVPB DAILY [facility] Stop: 04/23/18 09:31 Last Admin: 04/18/18 11:01 Dose: 110 mls/hr Piperacillin Sod/Tazobactam Sod (Zosyn 3.375 Gm Iv Premix) 3.375 gm in 50 mls @ 200 mls/hr IVPB Q8H [facility]; Protocol Last Admin: 04/19/18 06:32 Dose: 200 mls/hr Lisinopril (Zestril) 10 mg PO DAILY [facility] Last Admin: 04/19/18 09:28 Dose: Not Given Lorazepam (Ativan) 0.5 mg IVP ONCE PRN PRN Reason: agitation for mri Pantoprazole Sodium (Protonix Ec Tab) 40 mg PO DAILY [facility] Last Admin: 04/19/18 09:26 Dose: 40 mg - Labs Labs: 04/19/18 08:25 04/19/18 08:25 PT 12.6 SECONDS (9.7-12.2) H 04/18/18 13:53 INR 1.2 04/18/18 13:53 APTT 38 SECONDS (21-34) H 04/18/18 13:53 - Constitutional Appears: Well, Non-toxic - Head Exam Head Exam: ATRAUMATIC - Extremities Exam Additional comments: LE focused exam: Vasc: DP/PT pulses fully palpable 2/4 b/l. Skin temperature warm to warm from proximal to distal. CFT < 3 seconds to all digits. Minimal edema noted to medial aspect of left forefoot Neuro: Epicritic and protective sensation grossly diminished b/l Derm: Open wounds b/l at distal first metatarsal head. Minimal erythema noted to left foot wound. No drainage, malodor or other clinical signs of infection appreciated at this time MSK: Severe digital deformities noted to all digits of both feet especially b/l hallux which are deviated so far laterally that the first metatarsal head protrudes from the skin distally as a result. All other digits laterally deviated and contracted - Neurological Exam Neurological Exam: Alert, Awake - Psychiatric Exam Psychiatric exam: Normal Affect Assessment and Plan - Assessment and Plan (Free Text) Assessment: 82F seen and evaluated for b/l great toe disarticulation and lesser digit deformity secondary to RA Plan: Patient seen and evaluated Plan discussed with Dr. Mcmullen Afebrile, absent leukocytosis Continue abx per ID Foot xray: Multiple hammertoe orientations as well as multiple subluxations inferred-overall toes are markedly disorganized in appearance on both feet. Comparisons available to assess for stability. Chronicity is favored. Postsurgical changes as detailed above. No gross fracture seen. There is apparent paucity over some of the osseous structures where clinical history states bone is protruding. Is difficult to assess for any discrete osteomyelitis or periosteal reaction to suggest this. Vascular calcifications MRI: Read pending Patient will need b/l surgical intervention pending vascular workup; will f/u with Dr. Mcmullen, to be scheduled for friday. Wounds dressed with betadine, DSD Podiatry will continue to follow while patient in house
--- NOTE | 2018-04-19 11:50 | CP.PCM.PN ---
<Kenton Carr - Last Filed: 04/19/18 21:55> Subjective - Date & Time of Evaluation Date of Evaluation: 04/19/18 Time of Evaluation: 11:50 - Subjective Subjective: PGY-1 Medicine progress note for Dr. Snyder Pt was seen and examined at bedside. Pt is resting comfortably. No acute events overnight. Pt has no complaints at this time. RN reports continue hematuria. Pt denies chills, chest pain, sob, abdominal pain, n/v/d, any signs of bleeding, leg pain or swelling. Pt is eating well. Objective - Vital Signs/Intake and Output Vital Signs (last 24 hours): Temp Pulse Resp BP Pulse Ox 97.8 F 72 20 92/56 L 95 04/19/18 07:51 04/19/18 09:28 04/19/18 07:51 04/19/18 09:28 04/19/18 07:51 Intake and Output: 04/19/18 04/19/18 06:59 18:59 Output Total 500 Balance -500 - Medications Medications: Current Medications Diphenhydramine HCl (Benadryl) 25 mg PO Q6 PRN PRN Reason: itching Last Admin: 04/16/18 20:06 Dose: 25 mg Hydrochlorothiazide (Hydrodiuril) 25 mg PO DAILY [facility] Last Admin: 04/19/18 09:28 Dose: Not Given Ferric Sodium Gluconate Complex 125 mg/ Sodium Chloride 110 mls @ 110 mls/hr IVPB DAILY [facility] Stop: 04/23/18 09:31 Last Admin: 04/18/18 11:01 Dose: 110 mls/hr Piperacillin Sod/Tazobactam Sod (Zosyn 3.375 Gm Iv Premix) 3.375 gm in 50 mls @ 200 mls/hr IVPB Q8H [facility]; Protocol Last Admin: 04/19/18 06:32 Dose: 200 mls/hr Lisinopril (Zestril) 10 mg PO DAILY [facility] Last Admin: 04/19/18 09:28 Dose: Not Given Lorazepam (Ativan) 0.5 mg IVP ONCE PRN PRN Reason: agitation for mri Pantoprazole Sodium (Protonix Ec Tab) 40 mg PO DAILY [facility] Last Admin: 04/19/18 09:26 Dose: 40 mg - Labs Labs: 04/19/18 08:25 04/19/18 08:25 PT 12.6 SECONDS (9.7-12.2) H 04/18/18 13:53 INR 1.2 04/18/18 13:53 APTT 38 SECONDS (21-34) H 04/18/18 13:53 - Additional Findings Additional findings: - Constitutional Appears: No Acute Distress, Confused at baseline - Head Exam Head Exam: ATRAUMATIC, NORMOCEPHALIC - Eye Exam Eye Exam: EOMI - ENT Exam ENT Exam: Mucous Membranes Moist - Respiratory Exam Respiratory Exam: Clear to Ausculation Bilateral, NORMAL BREATHING PATTERN. absent: Decreased Breath Sounds, Rhonchi, Wheezes - Cardiovascular Exam Cardiovascular Exam: REGULAR RHYTHM, +S1, +S2. absent: tachycardia - GI/Abdominal Exam GI & Abdominal Exam: Soft, Normal Bowel Sounds. (+) large ventral hernia, nontender, bowel sounds intact, chronic, no signs of infection. absent: Tenderness, distension - Extremities Exam Good capillary refill. Additional comments: bilateral foot dressings c/d/i. unable to visualize feet. - Neurological Exam Neurological Exam: Alert, Awake. Oriented to self. absent: Oriented x3. - Psychiatric Exam Psychiatric exam: Normal Affect, Normal Mood - Skin Skin Exam: Dry, Pallor, Warm Assessment and Plan - Assessment and Plan (Free Text) Assessment: Osteomyelitis - XR foot (04/14): multiple hammertoe orientations, as well as subluxations. No gross fracture. - CTA LE (04/15): moderate calcifications in abdominal aorta and pelvic arteries, moderate calcific plaque in bilateral LE without significant stenosis. - ESR elevated at 60 on admission - Vanco held as per ID - continue Zosyn 3.375 q8 IVPB - started 04/14 - Afebrile, No leukocytosis - Blood Cx (04/14): neg for 5 days - Dr Carson Podiatry following- recs appreciated - will f/u with Dr. Mcmullen for possible amputation, to be scheduled for Friday. - Dr Jose Parsons following- recs appreciated - CTA showed no signs of clinically significant stenosis. No surgical intervention indicated at this time - Dr Patel ID following- recs appreciated - hold vanc, continue zosyn - wound care per podiatry - f/u MRI -will give Ativan PRN for agitation prior to MRI Hematuria, not painful - Urology, Rupert Chavarria, consulted. F/u recs - F/u renal US - PT/PTT/INR is unremarkable - H/H is stable Hypertension -Lisinopril 10mg po daily -HCTZ 25mg po daily Rheumatoid Arthritis -Unknown if patient is on medication Iron deficiency Anemia - pt received 1 unit of pRBCs at on night of 04/16; H/H shows appropriate response - H/H is stable - Ferrlecit 125 IVPB daily - Microcytic anemia - Hemodynamically stable - Stool occult negative Dementia -AAOx1 -unknown baseline; will discuss pt's plan and prognosis with family PPX -DVT: SCDS -GI ppx: protonix 40mg hs -HHD Case discussed with Dr. Snyder. All medical management as per Dr. Claudio Carr PGY-1 <Joe Snyder Jr. - Last Filed: 04/26/18 15:10> Objective - Vital Signs/Intake and Output Vital Signs (last 24 hours): Temp Pulse Resp BP Pulse Ox 98.0 F 70 20 112/59 L 95 04/23/18 17:11 04/23/18 17:11 04/23/18 17:11 04/23/18 17:11 04/23/18 17:11 - Labs Labs: 04/23/18 07:42 04/23/18 07:42 PT 13.4 SECONDS (9.7-12.2) H 04/22/18 07:44 INR 1.2 04/22/18 07:44 APTT 36 SECONDS (21-34) H 04/22/18 07:44 Attending/Attestation - Attestation I have personally seen and examined this patient.: Yes I have fully participated in the care of the patient.: Yes I have reviewed all pertinent clinical information, including history, physical exam and plan: Yes Notes (Text): 04/26/18 15:10 Reviewed resident note. Agree with findings and plan of care.
--- NOTE | 2018-04-19 16:03 | CP.PCM.PN ---
Subjective - Date & Time of Evaluation Date of Evaluation: 04/19/18 Time of Evaluation: 08:00 - Subjective Subjective: events noted awake afeb nad Objective - Vital Signs/Intake and Output Vital Signs (last 24 hours): Temp Pulse Resp BP Pulse Ox 97.8 F 72 20 92/56 L 95 04/19/18 07:51 04/19/18 09:28 04/19/18 07:51 04/19/18 09:28 04/19/18 07:51 Intake and Output: 04/19/18 04/19/18 06:59 18:59 Output Total 500 Balance -500 - Medications Medications: Current Medications Diphenhydramine HCl (Benadryl) 25 mg PO Q6 PRN PRN Reason: itching Last Admin: 04/16/18 20:06 Dose: 25 mg Hydrochlorothiazide (Hydrodiuril) 25 mg PO DAILY [facility] Last Admin: 04/19/18 09:28 Dose: Not Given Ferric Sodium Gluconate Complex 125 mg/ Sodium Chloride 110 mls @ 110 mls/hr IVPB DAILY [facility] Stop: 04/23/18 09:31 Last Admin: 04/19/18 09:30 Dose: 110 mls/hr Piperacillin Sod/Tazobactam Sod (Zosyn 3.375 Gm Iv Premix) 3.375 gm in 50 mls @ 200 mls/hr IVPB Q8H [facility]; Protocol Last Admin: 04/19/18 14:44 Dose: 200 mls/hr Lisinopril (Zestril) 10 mg PO DAILY [facility] Last Admin: 04/19/18 09:28 Dose: Not Given Lorazepam (Ativan) 0.5 mg IVP ONCE PRN PRN Reason: agitation for mri Pantoprazole Sodium (Protonix Ec Tab) 40 mg PO DAILY [facility] Last Admin: 04/19/18 09:26 Dose: 40 mg - Labs Labs: 04/19/18 08:25 04/19/18 08:25 PT 12.6 SECONDS (9.7-12.2) H 04/18/18 13:53 INR 1.2 04/18/18 13:53 APTT 38 SECONDS (21-34) H 04/18/18 13:53 - Constitutional Appears: Non-toxic, Chronically Ill - Head Exam Head Exam: NORMOCEPHALIC - Eye Exam Eye Exam: absent: Scleral icterus - ENT Exam ENT Exam: Mucous Membranes Dry - Neck Exam Neck Exam: absent: Lymphadenopathy - Respiratory Exam Respiratory Exam: Decreased Breath Sounds - Cardiovascular Exam Cardiovascular Exam: REGULAR RHYTHM - GI/Abdominal Exam GI & Abdominal Exam: Distended, Soft - Rectal Exam Rectal Exam: Deferred Assessment and Plan (1) Bone and joint malformation Status: Acute (2) Osteomyelitis Status: Acute (3) Rheumatoid arthritis of foot Status: Acute - Assessment and Plan (Free Text) Assessment: cont iv rx as planned
[2018-04-19] MEDS: Dextrose 5%/0.45% NS 1,000 ML IV SCH (19:20)
[2018-04-19] MEDS ORDERED: Dextrose 50% SYRINGE Inj (50 ml) IV STA (19:44)
[2018-04-19] MEDS ORDERED: Dextrose 50% VIAL Inj (50 ml) IV ONE (19:50)
[2018-04-20] MEDS: Piperacill/Tazo 3.375gm in Dex 3.375 GM/50 ML BAG IVPB SCH ×3 (06:02→22:07)
--- NOTE | 2018-04-20 07:42 | CP.PCM.PN ---
<Kenton Carr - Last Filed: 04/20/18 17:12> Subjective - Date & Time of Evaluation Date of Evaluation: 04/20/18 Time of Evaluation: 07:27 - Subjective Subjective: PGY-1 Medicine progress note for Dr. Snyder Pt was seen and examined at bedside. Pt is resting comfortably. Pt did not want to eat last night and thus her sugar was 60. Pt started on D5 1/2 NS at 60 mL/hr. Pt has no complaints at this time. RN reports continued hematuria, renal US pending, urology consult pending. Pt denies chills, chest pain, sob, abdominal pain, n/v/d, any signs of bleeding, leg pain or swelling. Objective - Vital Signs/Intake and Output Vital Signs (last 24 hours): Temp Pulse Resp BP Pulse Ox 97.8 F 61 20 90/53 L 96 04/19/18 23:25 04/19/18 23:25 04/19/18 23:25 04/19/18 23:25 04/19/18 23:25 - Medications Medications: Current Medications Diphenhydramine HCl (Benadryl) 25 mg PO Q6 PRN PRN Reason: itching Last Admin: 04/16/18 20:06 Dose: 25 mg Hydrochlorothiazide (Hydrodiuril) 25 mg PO DAILY [facility] Last Admin: 04/19/18 09:28 Dose: Not Given Ferric Sodium Gluconate Complex 125 mg/ Sodium Chloride 110 mls @ 110 mls/hr IVPB DAILY [facility] Stop: 04/23/18 09:31 Last Admin: 04/19/18 09:30 Dose: 110 mls/hr Piperacillin Sod/Tazobactam Sod (Zosyn 3.375 Gm Iv Premix) 3.375 gm in 50 mls @ 200 mls/hr IVPB Q8H [facility]; Protocol Last Admin: 04/20/18 06:02 Dose: 200 mls/hr Dextrose/Sodium Chloride (Dextrose 5%/0.45% Ns 1000 Ml) 1,000 mls @ 60 mls/hr IV .[id number] [facility] Last Admin: 04/19/18 19:20 Dose: 60 mls/hr Lisinopril (Zestril) 10 mg PO DAILY [facility] Last Admin: 04/19/18 09:28 Dose: Not Given Lorazepam (Ativan) 0.5 mg IVP ONCE PRN PRN Reason: agitation for mri Pantoprazole Sodium (Protonix Ec Tab) 40 mg PO DAILY [facility] Last Admin: 04/19/18 09:26 Dose: 40 mg - Labs Labs: 04/19/18 08:25 04/19/18 08:25 PT 12.6 SECONDS (9.7-12.2) H 04/18/18 13:53 INR 1.2 04/18/18 13:53 APTT 38 SECONDS (21-34) H 04/18/18 13:53 - Additional Findings Additional findings: - Constitutional Appears: No Acute Distress, Confused at baseline - Head Exam Head Exam: ATRAUMATIC, NORMOCEPHALIC - Eye Exam Eye Exam: EOMI - ENT Exam ENT Exam: Mucous Membranes Moist - Respiratory Exam Respiratory Exam: Clear to Ausculation Bilateral, NORMAL BREATHING PATTERN. absent: Decreased Breath Sounds, Rhonchi, Wheezes - Cardiovascular Exam Cardiovascular Exam: REGULAR RHYTHM, +S1, +S2. absent: tachycardia - GI/Abdominal Exam GI & Abdominal Exam: Soft, Normal Bowel Sounds. (+) large ventral hernia, nontender, bowel sounds intact, chronic, no signs of infection. absent: Te nderness, distension - Extremities Exam Good capillary refill. Additional comments: bilateral foot dressings c/d/i. unable to visualize feet. - Neurological Exam Neurological Exam: Alert, Awake. Oriented to self. absent: Oriented x3. - Psychiatric Exam Psychiatric exam: Normal Affect, Normal Mood - Skin Skin Exam: Dry, Pallor, Warm Assessment and Plan - Assessment and Plan (Free Text) Assessment: 89yoF PMH HTN, RA admitted for osteomyelitis. Plan: Osteomyelitis - XR foot (04/14): multiple hammertoe orientations, as well as subluxations. No gross fracture. - CTA LE (04/15): moderate calcifications in abdominal aorta and pelvic a rteries, moderate calcific plaque in bilateral LE without significant stenosis. - ESR elevated at 60 on admission - Vanco held as per ID - continue Zosyn 3.375 q8 IVPB - started 04/14 - Afebrile, No leukocytosis - Blood Cx (04/14): neg for 5 days - Dr Carson Podiatry following- recs appreciated - Case discussed with Dr. Mcmullen for possible amputation, to be scheduled for Friday, 04/22 - Dr Garcia VascSx following- recs appreciated - CTA showed no signs of clinically significant stenosis. No surgical intervention indicated at this time - Dr Amanda MELENDEZ following- recs appreciated - hold vanc, continue zosyn - wound care per podiatry - f/u MRI -will give Ativan PRN for agitation prior to MRI Hematuria, not painful - Urology, Rupert Chavarria, consulted. F/u recs - pt did have UTI with blood on admission, treated wt vanco but stopped as per ID. - She remains on zosyn as above - F/u renal US - PT/PTT/INR is unremarkable - H/H is stable Hypertension -Lisinopril 10mg po daily -HCTZ 25mg po daily Rheumatoid Arthritis -Unknown if patient is on medication Iron deficiency Anemia - pt received 1 unit of pRBCs at on night of 04/16; H/H shows appropriate response - H/H is stable - Ferrlecit 125 IVPB daily - Microcytic anemia - Hemodynamically stable - Stool occult negative Dementia -AAOx1 -unknown baseline; will discuss pt's plan and prognosis with family -04/16, Pt did not want to eat last night and thus her sugar was 60. Pt started on D5 1/2 NS at 60 mL/hr. PPX -DVT: SCDS -GI ppx: protonix 40mg hs -HHD Case discussed with Dr. Snyder. All medical management as per Dr. Claudio Carr PGY-1 <Joe Snyder Jr. - Last Filed: 04/26/18 15:10> Objective - Vital Signs/Intake and Output Vital Signs (last 24 hours): Temp Pulse Resp BP Pulse Ox 98.0 F 70 20 112/59 L 95 04/23/18 17:11 04/23/18 17:11 04/23/18 17:11 04/23/18 17:11 04/23/18 17:11 - Labs Labs: 04/23/18 07:42 04/23/18 07:42 PT 13.4 SECONDS (9.7-12.2) H 04/22/18 07:44 INR 1.2 04/22/18 07:44 APTT 36 SECONDS (21-34) H 04/22/18 07:44 Attending/Attestation - Attestation I have personally seen and examined this patient.: Yes I have fully participated in the care of the patient.: Yes I have reviewed all pertinent clinical information, including history, physical exam and plan: Yes Notes (Text): 04/26/18 15:10 Reviewed resident note. Agree with findings and plan of care.
[2018-04-20 08:25] LABS: ALB/GLOB RATIO 0.9 (1.0-2.1); ALT/SGPT 10 U/L (9-52); AST/SGOT 17 U/L (14-36); BLOOD UREA NITROGEN 21 mg/dL (7-17); CALCIUM 8.1 mg/dl (8.6-10.4); GFR NON-AFRICAN AMERICAN > 60
[2018-04-20 08:35] LABS: BASO # 0.1 K/uL (0.0-0.2); BASO % 1.9 % (0.0-2.0); EOS # 0.1 K/uL (0.0-0.7); EOS % 3.3 % (0.0-4.0); HEMOGLOBIN 8.7 g/dL (11.0-16.0); LYMPH % 34.6 % (20.0-40.0); MEAN CELL VOLUME 70.5 fL (81.0-99.0); MEAN CORPUSCULAR HEMOGLOBIN 22.6 pg (27.0-31.0); MEAN CORPUSCULAR HGB CONC 32.1 g/dL (33.0-37.0); MEAN PLATELET VOLUME 7.1 fL (7.2-11.7); MONO # 0.3 K/uL (0.0-0.8); MONO % 10.2 % (0.0-10.0); NEUT # 1.4 K/uL (1.8-7.0); NRBC % 0.1 % (0.0-2.0); RBC 3.85 Mil/uL (3.80-5.20); WHITE BLOOD COUNT 2.8 K/uL (4.8-10.8)
[2018-04-20] MEDS: Pantoprazole 40 mg EC Tab PO SCH (09:49)
[2018-04-20] MEDS: Ferric Sodium Gluconat Complex 125 MG in Sodium Chloride 0.9% 100 ML IVPB SCH (09:50)
--- NOTE | 2018-04-20 11:04 | US ---
Date of service: 04/20/2018 PROCEDURE: Ultrasound of the Kidneys HISTORY: hematuria COMPARISON: None available. TECHNIQUE: Sonogram of the kidneys. FINDINGS: RIGHT KIDNEY: Measures: 10.4 x 4.5 x 6.0 cm. Normal in size and contour. Increased echogenicity consistent with medical renal disease. No stone, solid mass lesion or hydronephrosis visualized. LEFT KIDNEY: Measures: 11.3 x 4.9 x 4.0 cm. Normal in size and contour. Increased echogenicity consistent with medical renal disease.. There is a small midpole cyst that measures approximately 1.5 x 1.3 x 1.5 cm. No stone, solid mass lesion or hydronephrosis visualized. OTHER FINDINGS: None. IMPRESSION: Findings consistent with underlying medical renal disease. Small midpole cyst left kidney as above. No evidence of nephrolithiasis or hydronephrosis.
[2018-04-20] MEDS: Dextrose 5%/0.45% NS 1,000 ML IV SCH (12:44)
--- NOTE | 2018-04-20 13:02 | CP.PCM.CON ---
Past Patient History - Past Medical History & Family History Past Medical History?: Yes - Past Social History Smoking Status: Heavy Smoker > 10 Cigarettes Daily - CARDIAC Hx Cardiac Disorders: Yes Hx Hypertension: Yes - PULMONARY Hx Respiratory Disorders: Yes Hx Bronchitis: Yes - NEUROLOGICAL Hx Neurological Disorder: Yes Hx Dementia: Yes - HEENT Hx HEENT Problems: No - RENAL Hx Chronic Kidney Disease: No - ENDOCRINE/METABOLIC Hx Endocrine Disorders: No - HEMATOLOGICAL/ONCOLOGICAL Hx Blood Disorders: No - INTEGUMENTARY Hx Dermatological Problems: No - MUSCULOSKELETAL/RHEUMATOLOGICAL Hx Musculoskeletal Disorders: Yes Hx Falls: Yes Hx Rheumatoid Arthritis: Yes - GASTROINTESTINAL Hx Gastrointestinal Disorders: No - GENITOURINARY/GYNECOLOGICAL Hx Genitourinary Disorders: Yes Hx Incontinence: Yes - PSYCHIATRIC Hx Substance Use: No - SURGICAL HISTORY Hx Surgeries: Yes Hx Cataract Extraction: Yes (OD 09/09/2013; OS 07/15/2013) - ANESTHESIA Hx Anesthesia: Yes Hx Anesthesia Reactions: No Hx Malignant Hyperthermia: No Has any member of the family had a problem w/ anesthesia?: No Meds Allergies/Adverse Reactions: Allergies Allergy/AdvReac Type Severity Reaction Status Date / Time No Known Allergies Allergy Unverified 03/30/14 10:53 - Medications Medications: Current Medications Diphenhydramine HCl (Benadryl) 25 mg PO Q6 PRN PRN Reason: itching Last Admin: 04/16/18 20:06 Dose: 25 mg Hydrochlorothiazide (Hydrodiuril) 25 mg PO DAILY [facility] Last Admin: 04/20/18 09:49 Dose: Not Given Ferric Sodium Gluconate Complex 125 mg/ Sodium Chloride 110 mls @ 110 mls/hr IVPB DAILY [facility] Stop: 04/23/18 09:31 Last Admin: 04/20/18 09:50 Dose: 110 mls/hr Piperacillin Sod/Tazobactam Sod (Zosyn 3.375 Gm Iv Premix) 3.375 gm in 50 mls @ 200 mls/hr IVPB Q8H [facility]; Protocol Last Admin: 04/20/18 06:02 Dose: 200 mls/hr Dextrose/Sodium Chloride (Dextrose 5%/0.45% Ns 1000 Ml) 1,000 mls @ 60 mls/hr IV .[id number] [facility] Last Admin: 04/20/18 12:44 Dose: 60 mls/hr Lisinopril (Zestril) 10 mg PO DAILY [facility] Last Admin: 04/20/18 09:50 Dose: Not Given Lorazepam (Ativan) 0.5 mg IVP ONCE PRN PRN Reason: agitation for mri Pantoprazole Sodium (Protonix Ec Tab) 40 mg PO DAILY [facility] Last Admin: 04/20/18 09:49 Dose: 40 mg Results - Vital Signs Recent Vital Signs: Last Vital Signs Temp 97.7 F 04/20/18 08:16 Pulse 57 L 04/20/18 08:16 Resp 20 04/20/18 08:16 BP 102/58 L 04/20/18 08:16 Pulse Ox 96 04/20/18 08:16 - Labs Result Diagrams: 04/20/18 07:58 04/20/18 07:58 Labs: Laboratory Results - last 24 hr 04/19/18 04/19/18 04/19/18 18:37 19:40 20:17 WBC RBC Hgb Hct MCV MCH MCHC RDW Plt Count MPV Neut % (Auto) Lymph % (Auto) [place] % (Auto) Eos % (Auto) Baso % (Auto) Neut # (Auto) Lymph # (Auto) [place] # (Auto) Eos # (Auto) Baso # (Auto) Sodium Potassium Chloride Carbon Dioxide Anion Gap BUN Creatinine Est GFR ( Amer) Est GFR (Non-Af Amer) POC Glucose (mg/dL) 61 L 60 L 184 H Random Glucose Calcium Total Bilirubin AST ALT Alkaline Phosphatase Total Protein Albumin Globulin Albumin/Globulin Ratio 04/20/18 04/20/18 04/20/18 00:27 06:33 07:58 WBC 2.8 L RBC 3.85 Hgb 8.7 L Hct 27.1 L MCV 70.5 L MCH 22.6 L MCHC 32.1 L RDW 20.0 H Plt Count 216 MPV 7.1 L Neut % (Auto) 50.0 Lymph % (Auto) 34.6 [place] % (Auto) 10.2 H Eos % (Auto) 3.3 Baso % (Auto) 1.9 Neut # (Auto) 1.4 L Lymph # (Auto) 1.0 [place] # (Auto) 0.3 Eos # (Auto) 0.1 Baso # (Auto) 0.1 Sodium Potassium Chloride Carbon Dioxide Anion Gap BUN Creatinine Est GFR ( Amer) Est GFR (Non-Af Amer) POC Glucose (mg/dL) 121 H 94 Random Glucose Calcium Total Bilirubin AST ALT Alkaline Phosphatase Total Protein Albumin Globulin Albumin/Globulin Ratio 04/20/18 04/20/18 07:58 11:28 WBC RBC Hgb Hct MCV MCH MCHC RDW Plt Count MPV Neut % (Auto) Lymph % (Auto) [place] % (Auto) Eos % (Auto) Baso % (Auto) Neut # (Auto) Lymph # (Auto) [place] # (Auto) Eos # (Auto) Baso # (Auto) Sodium 133 Potassium 4.0 Chloride 99 Carbon Dioxide 25 Anion Gap 13 BUN 21 H Creatinine 0.9 Est GFR ( Amer) > 60 Est GFR (Non-Af Amer) > 60 POC Glucose (mg/dL) 122 H Random Glucose 97 Calcium 8.1 L Total Bilirubin 0.6 AST 17 ALT 10 Alkaline Phosphatase 67 Total Protein 6.4 Albumin 3.0 L Globulin 3.4 Albumin/Globulin Ratio 0.9 L Assessment & Plan - Assessment and Plan (Free Text) Assessment: IMP: Hematuria DDX: infection, urolithiasis, neoplasia Osteomyelitis Full note tbd YS - Date & Time Date: 04/20/18 Time: 13:01
--- NOTE | 2018-04-20 22:14 | CP.PCM.PN ---
Subjective - Date & Time of Evaluation Date of Evaluation: 04/20/18 Time of Evaluation: 07:50 - Subjective Subjective: Podiatry Progress Note: Dr. 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 Patient is AAOx3 and appear in NAD. Denies of any acute overnight events. Denies of recent F/N/V/C/SOB/CP/headache. No other pedal complains at this time. Objective - Vital Signs/Intake and Output Vital Signs (last 24 hours): Temp Pulse Resp BP Pulse Ox 98 F 62 20 119/73 95 04/20/18 16:00 04/20/18 16:00 04/20/18 16:00 04/20/18 16:00 04/20/18 16:00 Intake and Output: 04/20/18 04/21/18 18:59 06:59 Intake Total 480 Balance 480 - Medications Medications: Current Medications Diphenhydramine HCl (Benadryl) 25 mg PO Q6 PRN PRN Reason: itching Last Admin: 04/16/18 20:06 Dose: 25 mg Hydrochlorothiazide (Hydrodiuril) 25 mg PO DAILY [facility] Last Admin: 04/20/18 09:49 Dose: Not Given Ferric Sodium Gluconate Complex 125 mg/ Sodium Chloride 110 mls @ 110 mls/hr IVPB DAILY [facility] Stop: 04/23/18 09:31 Last Admin: 04/20/18 09:50 Dose: 110 mls/hr Piperacillin Sod/Tazobactam Sod (Zosyn 3.375 Gm Iv Premix) 3.375 gm in 50 mls @ 200 mls/hr IVPB Q8H [facility]; Protocol Last Admin: 04/20/18 22:07 Dose: 200 mls/hr Dextrose/Sodium Chloride (Dextrose 5%/0.45% Ns 1000 Ml) 1,000 mls @ 60 mls/hr IV .[id number] [facility] Last Admin: 04/20/18 12:44 Dose: 60 mls/hr Lisinopril (Zestril) 10 mg PO DAILY [facility] Last Admin: 04/20/18 09:50 Dose: Not Given Lorazepam (Ativan) 0.5 mg IVP ONCE PRN PRN Reason: agitation for mri Pantoprazole Sodium (Protonix Ec Tab) 40 mg PO DAILY [facility] Last Admin: 04/20/18 09:49 Dose: 40 mg - Labs Labs: 04/20/18 07:58 04/20/18 07:58 PT 12.6 SECONDS (9.7-12.2) H 04/18/18 13:53 INR 1.2 04/18/18 13:53 APTT 38 SECONDS (21-34) H 04/18/18 13:53 - Constitutional Appears: Well, Non-toxic, No Acute Distress - Extremities Exam Additional comments: LE focused exam: VASC: DP/PT pulses fully palpable 2/4 b/l. Skin temperature warm to warm from proximal to distal. CFT < 3 seconds to all digits. Minimal edema noted to medial aspect of left forefoot Derm: Open wounds b/l at distal first metatarsal head. Probe to bone with head of the 1st metatarsal exposed. Minimal erythema noted to left foot wound. No drainage, malodor or other clinical signs of infection appreciated at this time Neuro: Epicritic and protective sensation grossly diminished b/l MSK: Severe digital deformities noted to all digits of both feet especially b/l hallux which are deviated so far laterally that the first metatarsal head protrudes from the skin distally as a result. 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 Mcmullen Afebrile, absent leukocytosis Foot xray: Multiple hammertoe orientations as well as multiple subluxations inferred-overall toes are markedly disorganized in appearance on both feet. Comparisons available to assess for stability. Chronicity is favored. Postsurgical changes as detailed above. No gross fracture seen. There is appar ent paucity over some of the osseous structures where clinical history states bone is protruding. Is difficult to assess for any discrete osteomyelitis or periosteal reaction to suggest this. Vascular calcifications MRI: Read pending Wounds dressed with betadine, DSD Continue abx per ID Patient scheduled for partial 1st ray amputation on Friday 7:30 AM - Please provide medical optimization for the planned procedure Podiatry will continue to follow while patient in house
[2018-04-21] MEDS: Dextrose 5%/0.45% NS 1,000 ML IV SCH ×2 (04:23→06:23)
[2018-04-21] MEDS: Piperacill/Tazo 3.375gm in Dex 3.375 GM/50 ML BAG IVPB SCH ×3 (06:26→22:18)
[2018-04-21 08:36] LABS: BASO # 0.1 K/uL (0.0-0.2); BASO % 2.5 % (0.0-2.0); EOS # 0.1 K/uL (0.0-0.7); EOS % 2.3 % (0.0-4.0); HEMOGLOBIN 8.6 g/dL (11.0-16.0); LYMPH % 34.5 % (20.0-40.0); MEAN CELL VOLUME 69.8 fL (81.0-99.0); MEAN CORPUSCULAR HEMOGLOBIN 22.8 pg (27.0-31.0); MEAN CORPUSCULAR HGB CONC 32.6 g/dL (33.0-37.0); MEAN PLATELET VOLUME 6.9 fL (7.2-11.7); MONO # 0.3 K/uL (0.0-0.8); NEUT # 1.5 K/uL (1.8-7.0); NEUT % 51.7 % (50.0-75.0); RBC 3.77 Mil/uL (3.80-5.20); RED CELL DISTRIBUTION WIDTH 19.6 % (11.5-14.5); WHITE BLOOD COUNT 2.9 K/uL (4.8-10.8)
[2018-04-21 08:59] LABS: ALB/GLOB RATIO 0.8 (1.0-2.1); ALT/SGPT < 6 U/L (9-52); AST/SGOT 25 U/L (14-36); BLOOD UREA NITROGEN 16 mg/dL (7-17); GFR NON-AFRICAN AMERICAN > 60
--- NOTE | 2018-04-21 10:23 | CP.PCM.PN ---
<Kenton Carr - Last Filed: 04/21/18 14:46> Subjective - Date & Time of Evaluation Date of Evaluation: 04/21/18 Time of Evaluation: 10:23 - Subjective Subjective: PGY-1 Medicine progress note for Dr. Snyder Pt was seen and examined at bedside. Pt is resting comfortably. Pt has started eating again this morning. Pt has no complaints at this time. She remains pleasantly demented. Pt denies chills, chest pain, sob, abdominal pain, n/v/d, any signs of bleeding, leg pain or swelling. Objective - Vital Signs/Intake and Output Vital Signs (last 24 hours): Temp Pulse Resp BP Pulse Ox 97.6 F 65 18 115/62 94 L 04/21/18 08:08 04/21/18 08:08 04/21/18 08:08 04/21/18 08:08 04/21/18 08:08 Intake and Output: 04/21/18 04/21/18 06:59 18:59 Intake Total 1200 Balance 1200 - Medications Medications: Current Medications Diphenhydramine HCl (Benadryl) 25 mg PO Q6 PRN PRN Reason: itching Last Admin: 04/16/18 20:06 Dose: 25 mg Hydrochlorothiazide (Hydrodiuril) 25 mg PO DAILY [facility] Last Admin: 04/20/18 09:49 Dose: Not Given Ferric Sodium Gluconate Complex 125 mg/ Sodium Chloride 110 mls @ 110 mls/hr IVPB DAILY [facility] Stop: 04/23/18 09:31 Last Admin: 04/20/18 09:50 Dose: 110 mls/hr Piperacillin Sod/Tazobactam Sod (Zosyn 3.375 Gm Iv Premix) 3.375 gm in 50 mls @ 200 mls/hr IVPB Q8H [facility]; Protocol Last Admin: 04/21/18 06:26 Dose: 200 mls/hr Dextrose/Sodium Chloride (Dextrose 5%/0.45% Ns 1000 Ml) 1,000 mls @ 60 mls/hr IV .[id number] [facility] Last Admin: 04/21/18 06:23 Dose: 60 mls/hr Lisinopril (Zestril) 10 mg PO DAILY [facility] Last Admin: 04/20/18 09:50 Dose: Not Given Lorazepam (Ativan) 0.5 mg IVP ONCE PRN PRN Reason: agitation for mri Pantoprazole Sodium (Protonix Ec Tab) 40 mg PO DAILY [facility] Last Admin: 04/20/18 09:49 Dose: 40 mg - Labs Labs: 04/21/18 08:24 04/21/18 08:24 PT 12.6 SECONDS (9.7-12.2) H 04/18/18 13:53 INR 1.2 04/18/18 13:53 APTT 38 SECONDS (21-34) H 04/18/18 13:53 - Additional Findings Additional findings: - Constitutional Appears: No Acute Distress, Confused at baseline - Head Exam Head Exam: ATRAUMATIC, NORMOCEPHALIC - Eye Exam Eye Exam: EOMI - ENT Exam ENT Exam: Mucous Membranes Moist - Respiratory Exam Respiratory Exam: Clear to Ausculation Bilateral, NORMAL BREATHING PATTERN. absent: Decreased Breath Sounds, Rhonchi, Wheezes - Cardiovascular Exam Cardiovascular Exam: REGULAR RHYTHM, +S1, +S2. absent: tachycardia - GI/Abdominal Exam GI & Abdominal Exam: Soft, Normal Bowel Sounds. (+) large ventral hernia, nontender, bowel sounds intact, chronic, no signs of infection. No redness, no warmth. absent: Tenderness, distension - Extremities Exam Good capillary refill. Additional comments: bilateral foot dressings c/d/i. unable to visualize feet. - Neurological Exam Neurological Exam: Alert, Awake. Oriented to self. absent: Oriented x3. - Psychiatric Exam Psychiatric exam: Normal Affect, Normal Mood - Skin Skin Exam: Dry, Pallor, Warm Assessment and Plan - Assessment and Plan (Free Text) Assessment: 89yoF PMH HTN, RA admitted for osteomyelitis. Plan: Osteomyelitis - XR foot (04/14): multiple hammertoe orientations, as well as subluxations. No gross fracture. - CTA LE (04/15): moderate calcifications in abdominal aorta and pelvic arteries, moderate calcific plaque in bilateral LE without significant stenosis. - ESR elevated at 60 on admission - Vanco held as per ID - continue Zosyn 3.375 q8 IVPB - started 04/14 - Afebrile, No leukocytosis - Blood Cx (04/14): neg for 5 days - Dr Carson Podiatry following- recs appreciated - Case discussed with Dr. Mcmullen for possible amputation, to be scheduled for Friday, 04/22 - Dr Garcia VascSx following- recs appreciated - CTA showed no signs of clinically significant stenosis. No surgical intervention indicated at this time - Dr Amanda MELENDEZ following- recs appreciated - hold vanc, continue zosyn - wound care per podiatry - f/u MRI -will give Ativan 0.5 mg IVP PRN for agitation prior to MRI Hematuria, not painful - Urology, Rupert Chavarria, consulted. F/u recs Will plan for outpatient cystoscopy - pt did have UTI with blood on admission, treated with vanco but stopped as per ID. - She remains on zosyn as above - Renal US shows underlying medical renal disease. Small midpole cyst. - f/u repeat UA and urine culture and sensitivity - PT/PTT/INR is unremarkable - H/H is stable Hypertension -Lisinopril 10mg po daily -HCTZ 25mg po daily Rheumatoid Arthritis -Unknown if patient is on medication Iron deficiency Anemia - pt received 1 unit of pRBCs at on night of 04/16; H/H shows appropriate response - H/H is stable - Ferrlecit 125 IVPB daily - Microcytic anemia - Hemodynamically stable - Stool occult negative Dementia -AAOx1 -unknown baseline; will discuss pt's plan and prognosis with family -04/16, Pt did not want to eat last night and thus her sugar was 60. Pt started on D5 1/2 NS at 60 mL/hr. -04/21, pt has returned to eating regular amount of food PPX -DVT: SCDS -GI ppx: protonix 40mg hs -HHD Dispo: plan for surgery tomorrow with podiatry, pending DIOGO placement after surgery Case discussed with Dr. Snyder. All medical management as per Dr. Claudio Carr PGY-1 <Joe Snyder Jr. - Last Filed: 04/26/18 15:08> Objective - Vital Signs/Intake and Output Vital Signs (last 24 hours): Temp Pulse Resp BP Pulse Ox 98.0 F 70 20 112/59 L 95 04/23/18 17:11 04/23/18 17:11 04/23/18 17:11 04/23/18 17:11 04/23/18 17:11 - Labs Labs: 04/23/18 07:42 04/23/18 07:42 PT 13.4 SECONDS (9.7-12.2) H 04/22/18 07:44 INR 1.2 04/22/18 07:44 APTT 36 SECONDS (21-34) H 04/22/18 07:44 Attending/Attestation - Attestation I have personally seen and examined this patient.: Yes I have fully participated in the care of the patient.: Yes I have reviewed all pertinent clinical information, including history, physical exam and plan: Yes Notes (Text): 04/26/18 15:08 Reviewed resident note. Agree with findings and plan of care.
--- NOTE | 2018-04-21 10:37 | PCM.URO ---
Urology Progress Note - General General: No Complaints, Tolerating Diet - Subjective Abdominal Pain: No Flank Pain: No Nausea: No Hematuria: Yes (hemautria report, but not seen by nursing staff) Dsypnea: No Chest Pain: No Fever & Chills: No - Objective Lab Results Last 24 Hours: Laboratory Results - last 24 hr 04/20/18 04/20/18 04/21/18 11:28 16:45 00:31 WBC RBC Hgb Hct MCV MCH MCHC RDW Plt Count MPV Neut % (Auto) Lymph % (Auto) Dunn % (Auto) Eos % (Auto) Baso % (Auto) Neut # (Auto) Lymph # (Auto) Dunn # (Auto) Eos # (Auto) Baso # (Auto) Sodium Potassium Chloride Carbon Dioxide Anion Gap BUN Creatinine Est GFR ( Amer) Est GFR (Non-Af Amer) POC Glucose (mg/dL) 122 H 95 110 Random Glucose Calcium Total Bilirubin AST ALT Alkaline Phosphatase Total Protein Albumin Globulin Albumin/Globulin Ratio 04/21/18 04/21/18 04/21/18 06:18 08:24 08:24 WBC 2.9 L RBC 3.77 L Hgb 8.6 L Hct 26.3 L MCV 69.8 L MCH 22.8 L MCHC 32.6 L RDW 19.6 H Plt Count 200 MPV 6.9 L Neut % (Auto) 51.7 Lymph % (Auto) 34.5 Dunn % (Auto) 9.0 Eos % (Auto) 2.3 Baso % (Auto) 2.5 H Neut # (Auto) 1.5 L Lymph # (Auto) 1.0 Dunn # (Auto) 0.3 Eos # (Auto) 0.1 Baso # (Auto) 0.1 Sodium 129 L Potassium 4.4 Chloride 98 Carbon Dioxide 22 Anion Gap 13 BUN 16 Creatinine 0.7 Est GFR ( Amer) > 60 Est GFR (Non-Af Amer) > 60 POC Glucose (mg/dL) 103 Random Glucose 93 Calcium 8.0 L Total Bilirubin 0.7 AST 25 ALT < 6 L D Alkaline Phosphatase 60 Total Protein 6.6 Albumin 3.0 L Globulin 3.6 Albumin/Globulin Ratio 0.8 L Intake & Output: Intake & Output 04/20/18 04/21/18 04/21/18 18:59 06:59 18:59 Intake Total 480 1200 Balance 480 1200 Intake: Intake, IV Amount 480 960 Left Antecubital 480 960 Oral 240 Other: # Voids Urine, Voided 3 # Bowel Movements 2 Vital Signs: Vital Signs - 24 hr 04/20/18 04/20/18 04/21/18 16:00 23:27 08:08 Temperature 98 F 97.9 F 97.6 F Pulse Rate 62 64 65 Respiratory 20 20 18 Rate Blood Pressure 119/73 91/44 L 115/62 O2 Sat by Pulse 95 95 94 L Oximetry - Physical Exam Abdominal Exam: Soft, Non-Tender, Non-Distended Back: No CVA Tenderness - Plan Additional Information: IMP: clinically sable. hematuria. osteomyelitis. P/Rec: on antibiotc rx for osteomyelitis. culture, cytololgy. possibe further urologic w/u - e.g. cysto, acc to. clinical course and pt's family wishes. Discussed w resident and attending staff. YS - Date & Time of Note Date: 04/21/18 Time: 11:00
--- NOTE | 2018-04-21 10:53 | CP.PCM.PN ---
Subjective - Date & Time of Evaluation Date of Evaluation: 04/21/18 Time of Evaluation: 10:49 - Subjective Subjective: Podiatry Progress Note: Dr. 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 Patient is AAOx3 and appear in NAD. Denies of any acute overnight events. Denies of any pain today. Denies of recent F/N/V/C/SOB/CP/headache. No other pedal complains at this time. Objective - Vital Signs/Intake and Output Vital Signs (last 24 hours): Temp Pulse Resp BP Pulse Ox 97.6 F 65 18 115/62 94 L 04/21/18 08:08 04/21/18 08:08 04/21/18 08:08 04/21/18 08:08 04/21/18 08:08 Intake and Output: 04/21/18 04/21/18 06:59 18:59 Intake Total 1200 Balance 1200 - Medications Medications: Current Medications Diphenhydramine HCl (Benadryl) 25 mg PO Q6 PRN PRN Reason: itching Last Admin: 04/16/18 20:06 Dose: 25 mg Hydrochlorothiazide (Hydrodiuril) 25 mg PO DAILY [facility] Last Admin: 04/20/18 09:49 Dose: Not Given Ferric Sodium Gluconate Complex 125 mg/ Sodium Chloride 110 mls @ 110 mls/hr IVPB DAILY [facility] Stop: 04/23/18 09:31 Last Admin: 04/20/18 09:50 Dose: 110 mls/hr Piperacillin Sod/Tazobactam Sod (Zosyn 3.375 Gm Iv Premix) 3.375 gm in 50 mls @ 200 mls/hr IVPB Q8H [facility]; Protocol Last Admin: 04/21/18 06:26 Dose: 200 mls/hr Dextrose/Sodium Chloride (Dextrose 5%/0.45% Ns 1000 Ml) 1,000 mls @ 60 mls/hr IV .[id number] [facility] Last Admin: 04/21/18 06:23 Dose: 60 mls/hr Lisinopril (Zestril) 10 mg PO DAILY [facility] Last Admin: 04/20/18 09:50 Dose: Not Given Lorazepam (Ativan) 0.5 mg IVP ONCE PRN PRN Reason: agitation for mri Pantoprazole Sodium (Protonix Ec Tab) 40 mg PO DAILY [facility] Last Admin: 04/20/18 09:49 Dose: 40 mg - Labs Labs: 04/21/18 08:24 04/21/18 08:24 PT 12.6 SECONDS (9.7-12.2) H 04/18/18 13:53 INR 1.2 04/18/18 13:53 APTT 38 SECONDS (21-34) H 04/18/18 13:53 - Constitutional Appears: Well, Non-toxic, No Acute Distress - Extremities Exam Additional comments: LE focused exam: VASC: DP/PT pulses fully palpable 2/4 b/l. Skin temperature warm to warm from proximal to distal. CFT < 3 seconds to all digits. Minimal edema noted to medial aspect of left forefoot Derm: Open wounds b/l at distal first metatarsal head. Probe to bone with head of the 1st metatarsal exposed. Minimal erythema noted to left foot wound. No drainage, malodor or other clinical signs of infection appreciated at this time Neuro: Epicritic and protective sensation grossly diminished b/l MSK: Severe digital deformities noted to all digits of both feet especially b/l hallux which are deviated so far laterally that the first metatarsal head protrudes from the skin distally as a result. 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 Mcmullen Afebrile, absent leukocytosis Foot xray: Multiple hammertoe orientations as well as multiple subluxations inferred-overall toes are markedly disorganized in appearance on both feet. Comparisons available to assess for stability. Chronicity is favored. Postsurgical changes as detailed above. No gross fracture seen. There is apparent paucity over some of the osseous structures where clinical history states bone is protruding. Is difficult to assess for any discrete osteomyelitis or periosteal reaction to suggest this. Vascular calcifications MRI: Read pending Wounds dressed with betadine, DSD Continue abx per ID Patient scheduled for partial 1st ray amputation tomorrow, Friday 7:30 AM - pending medical optimization Multipodus boots to be worn at all times while in bed Podiatry will continue to follow while patient in house
[2018-04-21] MEDS: Pantoprazole 40 mg EC Tab PO SCH (11:11)
[2018-04-21] MEDS: Ferric Sodium Gluconat Complex 125 MG in Sodium Chloride 0.9% 100 ML IVPB SCH (11:11)
[2018-04-21] MEDS: Sodium Chloride 0.9% 1,000 ML IV SCH (16:59)
[2018-04-22 01:50] LABS: SQUAMOUS EPITHIAL 1 /hpf (0-5); URINE BILIRUBIN NEGATIVE (NEGATIVE); URINE BLOOD 3+ (NEGATIVE); URINE CLARITY Turbid (Clear); URINE COLOR LIGHT BROWN (YELLOW); URINE GLUCOSE (UA) NORMAL (Normal); URINE LEUKOCYTE ESTERASE 1+ Leu/uL (Negative); URINE PROTEIN 1+ mg/dL (NEGATIVE); URINE UROBILINOGEN NORMAL mg/dL (0.2-1.0)
[2018-04-22] MEDS: Piperacill/Tazo 3.375gm in Dex 3.375 GM/50 ML BAG IVPB SCH ×3 (06:04→22:19)
[2018-04-22 07:58] LABS: BASO # 0.1 K/uL (0.0-0.2); BASO % 1.9 % (0.0-2.0); EOS # 0.1 K/uL (0.0-0.7); EOS % 1.7 % (0.0-4.0); HEMOGLOBIN 9.1 g/dL (11.0-16.0); LYMPH % 28.4 % (20.0-40.0); MEAN CELL VOLUME 69.7 fL (81.0-99.0); MEAN CORPUSCULAR HEMOGLOBIN 23.1 pg (27.0-31.0); MEAN CORPUSCULAR HGB CONC 33.1 g/dL (33.0-37.0); MEAN PLATELET VOLUME 7.1 fL (7.2-11.7); MONO # 0.3 K/uL (0.0-0.8); MONO % 9.1 % (0.0-10.0); NEUT # 2.2 K/uL (1.8-7.0); NEUT % 58.9 % (50.0-75.0); RBC 3.96 Mil/uL (3.80-5.20); RED CELL DISTRIBUTION WIDTH 19.6 % (11.5-14.5); WHITE BLOOD COUNT 3.7 K/uL (4.8-10.8)
[2018-04-22 08:14] LABS: INR 1.2; PROTHROMBIN TIME 13.4 SECONDS (9.7-12.2)
[2018-04-22 08:15] LABS: ALB/GLOB RATIO 0.9 (1.0-2.1); ALBUMIN 3.1 g/dL (3.5-5.0); ALT/SGPT 15 U/L (9-52); AST/SGOT 19 U/L (14-36); BLOOD UREA NITROGEN 11 mg/dL (7-17); CALCIUM 8.3 mg/dl (8.6-10.4); GFR NON-AFRICAN AMERICAN > 60
--- NOTE | 2018-04-22 09:39 | CP.PCM.PN ---
<Kenton Carr - Last Filed: 04/22/18 15:05> Subjective - Date & Time of Evaluation Date of Evaluation: 04/22/18 Time of Evaluation: 09:39 - Subjective Subjective: PGY-1 Medicine progress note for Dr. Snyder Pt was seen and examined at bedside. Pt is resting comfortably. Pt has been NPO past midnight for planned OR with Dr. Mcmullen today. Pt has no complaints at this time. She remains pleasantly demented; AAO to name and place, not time. Pt denies chills, chest pain, sob, abdominal pain, n/v/d, any signs of bleeding, leg pain or swelling. Objective - Vital Signs/Intake and Output Vital Signs (last 24 hours): Temp Pulse Resp BP Pulse Ox 97.9 F 65 20 126/75 95 04/22/18 08:00 04/22/18 08:00 04/22/18 08:00 04/22/18 08:00 04/22/18 08:00 Intake and Output: 04/22/18 04/22/18 06:59 18:59 Intake Total 1330 Balance 1330 - Medications Medications: Current Medications Diphenhydramine HCl (Benadryl) 25 mg PO Q6 PRN PRN Reason: itching Last Admin: 04/16/18 20:06 Dose: 25 mg Hydrochlorothiazide (Hydrodiuril) 25 mg PO DAILY [facility] Last Admin: 04/21/18 11:11 Dose: 25 mg Ferric Sodium Gluconate Complex 125 mg/ Sodium Chloride 110 mls @ 110 mls/hr IVPB DAILY [facility] Stop: 04/23/18 09:31 Last Admin: 04/21/18 11:11 Dose: 110 mls/hr Piperacillin Sod/Tazobactam Sod (Zosyn 3.375 Gm Iv Premix) 3.375 gm in 50 mls @ 200 mls/hr IVPB Q8H [facility]; Protocol Last Admin: 04/22/18 06:04 Dose: 200 mls/hr Dextrose/Sodium Chloride (Dextrose 5%/0.45% Ns 1000 Ml) 1,000 mls @ 60 mls/hr IV .[id number] [facility] Last Admin: 04/21/18 06:23 Dose: 60 mls/hr Sodium Chloride (Sodium Chloride 0.9%) 1,000 mls @ 60 mls/hr IV .[id number] [facility] Last Admin: 04/21/18 16:59 Dose: 60 mls/hr Lisinopril (Zestril) 10 mg PO DAILY [facility] Last Admin: 04/21/18 11:11 Dose: 10 mg Lorazepam (Ativan) 0.5 mg IVP ONCE PRN PRN Reason: agitation for mri Pantoprazole Sodium (Protonix Ec Tab) 40 mg PO DAILY [facility] Last Admin: 04/21/18 11:11 Dose: 40 mg - Labs Labs: 04/22/18 07:44 04/22/18 07:44 PT 13.4 SECONDS (9.7-12.2) H 04/22/18 07:44 INR 1.2 04/22/18 07:44 APTT 36 SECONDS (21-34) H 04/22/18 07:44 - Additional Findings Additional findings: - Constitutional Appears: No Acute Distress, Confused at baseline - Head Exam Head Exam: ATRAUMATIC, NORMOCEPHALIC - Eye Exam Eye Exam: EOMI - ENT Exam ENT Exam: Mucous Membranes Moist - Respiratory Exam Respiratory Exam: Clear to Ausculation Bilateral, NORMAL BREATHING PATTERN. absent: Decreased Breath Sounds, Rhonchi, Wheezes - Cardiovascular Exam Cardiovascular Exam: REGULAR RHYTHM, +S1, +S2. absent: tachycardia - GI/Abdominal Exam GI & Abdominal Exam: Soft, Normal Bowel Sounds. (+) large ventral hernia, nontender, bowel sounds intact, chronic, no signs of infection. No redness, no warmth. absent: Tenderness, distension - Extremities Exam Good capillary refill. Additional comments: bilateral foot dressings c/d/i. unable to visualize feet. - Neurological Exam Neurological Exam: Alert, Awake. Oriented to self. absent: Oriented x3. - Psychiatric Exam Psychiatric exam: Normal Affect, Normal Mood - Skin Skin Exam: Dry, Pallor, Warm Assessment and Plan - Assessment and Plan (Free Text) Assessment: 89yoF PMH HTN, RA admitted for osteomyelitis. Plan: Osteomyelitis - XR foot (04/14): multiple hammertoe orientations, as well as subluxations. No gross fracture. - CTA LE (04/15): moderate calcifications in abdominal aorta and pelvic arteries, moderate calcific plaque in bilateral LE without significant stenosis. - ESR elevated at 60 on admission - Vanco held as per ID - continue Zosyn 3.375 q8 IVPB - started 04/14 - Afebrile, No leukocytosis - Blood Cx (04/14): neg for 5 days - Dr Carson Podiatry following- recs appreciated - Case discussed with Dr. Mcmullen for possible amputation, to be scheduled for Friday, 04/22 - Dr Garcia VascSx following- recs appreciated - CTA showed no signs of clinically significant stenosis. No surgical intervention indicated at this time - Dr Amanda MELENDEZ following- recs appreciated - hold vanc, continue zosyn - wound care per podiatry Hematuria, not painful - Urology, Rupert Chavarria, consulted. F/u recs Will plan for outpatient cystoscopy - pt did have UTI with blood on admission, treated with vanco but stopped as per ID. - She remains on zosyn as above - Renal US shows underlying medical renal disease. Small midpole cyst. - Urine culture (04/20) is negative for growth - H/H is stable Hypertension -Lisinopril 10mg po daily -HCTZ 25mg po daily Rheumatoid Arthritis -Unknown if patient is on medication Iron deficiency Anemia - pt received 1 unit of pRBCs at on night of 04/16; H/H shows appropriate response - H/H is stable - Ferrlecit 125 IVPB daily - Hemodynamically stable - Stool occult negative Dementia -AAOx1 -04/16, Pt did not want to eat last night and thus her sugar was 60. Pt started on D5 1/2 NS at 60 mL/hr. -04/21, pt has returned to eating regular amount of food. Gentle hydration with NS IVF started. PPX -DVT: SCDS -GI ppx: protonix 40mg hs -HHD Dispo: Will go for surgery today. As per SW note, discharge plan discussed with daughter, Luz, who reports that pt has home PT and VNS from [facility]. daughter has also done home IV Abx in the past and is willing to do it again. Case discussed with Dr. Snyder. All medical management as per Dr. Claudio Carr PGY-1 <Joe Snyder Jr. - Last Filed: 04/26/18 15:07> Objective - Vital Signs/Intake and Output Vital Signs (last 24 hours): Temp Pulse Resp BP Pulse Ox 98.0 F 70 20 112/59 L 95 04/23/18 17:11 04/23/18 17:11 04/23/18 17:11 04/23/18 17:11 04/23/18 17:11 - Labs Labs: 04/23/18 07:42 04/23/18 07:42 PT 13.4 SECONDS (9.7-12.2) H 04/22/18 07:44 INR 1.2 04/22/18 07:44 APTT 36 SECONDS (21-34) H 04/22/18 07:44 Attending/Attestation - Attestation I have personally seen and examined this patient.: Yes I have fully participated in the care of the patient.: Yes I have reviewed all pertinent clinical information, including history, physical exam and plan: Yes Notes (Text): 04/26/18 15:07 Reviewed resident note. Agree with findings and plan of care.
[2018-04-22] MEDS: Ferric Sodium Gluconat Complex 125 MG in Sodium Chloride 0.9% 100 ML IVPB SCH (09:44)
[2018-04-22] MEDS: Pantoprazole 40 mg EC Tab PO SCH (10:01)
[2018-04-22] MEDS ORDERED: Lidocaine Hydrochloride 20 ML INJ ONE (11:07)
[2018-04-22] MEDS ORDERED: Bupivacaine 0.25% 20 ML INJ IJ ONE ×2 (11:07→12:00)
[2018-04-22] MEDS ORDERED: Propofol 10 mg/ml Inj (20 ML) ONE ×2 (11:12→12:30)
[2018-04-22] MEDS ORDERED: Lidocaine Hydrochloride 10 ML INJ ONE (11:31)
[2018-04-22] MEDS ORDERED: Bacitracin 500 Units/gm Oint Foilpak UD ONE (11:31)
[2018-04-22] MEDS ORDERED: HYDROmorphone 0.5 mg/0.5 ml ISec IVP PRN (12:46)
--- NOTE | 2018-04-22 12:55 | PCM.SURG1 ---
Surgeon's Initial Post Op Note - Surgeon's Notes Surgeon: Dr. Mcmullen DPM [employer] Helper: Dr. Rolan Martines DPM PGY-2 Type of Anesthesia: IV Sedation, Local Anesthesia Administered By: Dr. 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 M: 3-0 vicryl, 4-0 nylon. I: 20 cc of 1:1 mixture of 0.25% marcaine plain:1% lidocaine plain - pre. 10 cc of 0.25% marcaine plain - post Post-Operative Diagnosis: Same Operation Performed: Bilateral partial 1st metatarsal resection with left foot proximal phalanx bone biopsy Specimen/Specimens Removed: Bilataral metatarsal head; Left foot proximal phalanx bone biopsy. Culture Estimated Blood Loss: EBL {In ML}: 10 Blood Products Given: N/A Drains Used: No Drains Post-Op Condition: Good Date of Surgery/Procedure: 04/22/18 Time of Surgery/Procedure: 12:56
[2018-04-22] MEDS ORDERED: Oxycodone/Acetaminophen 5/325 mg Tab PO PRN (12:57)
[2018-04-22] MEDS: Sodium Chloride 0.9% 1,000 ML IV SCH (14:08)
--- NOTE | 2018-04-22 14:47 | CP.PCM.PN ---
Subjective - Date & Time of Evaluation Date of Evaluation: 04/22/18 Time of Evaluation: 09:00 - Subjective Subjective: s/p OR Objective - Vital Signs/Intake and Output Vital Signs (last 24 hours): Temp Pulse Resp BP Pulse Ox 98.6 F 74 17 96/41 L 96 04/22/18 13:45 04/22/18 13:45 04/22/18 13:45 04/22/18 13:45 04/22/18 13:45 Intake and Output: 04/22/18 04/22/18 06:59 18:59 Intake Total 1330 815 Balance 1330 815 - Medications Medications: Current Medications Acetaminophen (Tylenol 325mg Tab) 650 mg PO Q6 PRN PRN Reason: Pain, Mild (1-3) Diphenhydramine HCl (Benadryl) 25 mg PO Q6 PRN PRN Reason: itching Last Admin: 04/16/18 20:06 Dose: 25 mg Hydrochlorothiazide (Hydrodiuril) 25 mg PO DAILY [facility] Last Admin: 04/22/18 10:01 Dose: Not Given Ferric Sodium Gluconate Complex 125 mg/ Sodium Chloride 110 mls @ 110 mls/hr IVPB DAILY [facility] Stop: 04/23/18 09:31 Last Admin: 04/22/18 09:44 Dose: 110 mls/hr Piperacillin Sod/Tazobactam Sod (Zosyn 3.375 Gm Iv Premix) 3.375 gm in 50 mls @ 200 mls/hr IVPB Q8H [facility]; Protocol Last Admin: 04/22/18 14:04 Dose: 200 mls/hr Dextrose/Sodium Chloride (Dextrose 5%/0.45% Ns 1000 Ml) 1,000 mls @ 60 mls/hr IV .[id number] [facility] Last Admin: 04/21/18 06:23 Dose: 60 mls/hr Sodium Chloride (Sodium Chloride 0.9%) 1,000 mls @ 60 mls/hr IV .[id number] [facility] Last Admin: 04/22/18 14:08 Dose: 60 mls/hr Lisinopril (Zestril) 10 mg PO DAILY [facility] Last Admin: 04/22/18 10:01 Dose: Not Given Lorazepam (Ativan) 0.5 mg IVP ONCE PRN PRN Reason: agitation for mri Oxycodone/Acetaminophen (Percocet 5/325 Mg Tab) 1 tab PO Q4H PRN PRN Reason: Pain, moderate (4-7) Stop: 04/25/18 12:58 Pantoprazole Sodium (Protonix Ec Tab) 40 mg PO DAILY [facility] Last Admin: 04/22/18 10:01 Dose: Not Given - Labs Labs: 04/22/18 07:44 04/22/18 07:44 PT 13.4 SECONDS (9.7-12.2) H 04/22/18 07:44 INR 1.2 04/22/18 07:44 APTT 36 SECONDS (21-34) H 04/22/18 07:44 - Constitutional Appears: Non-toxic - Head Exam Head Exam: NORMOCEPHALIC - ENT Exam ENT Exam: Mucous Membranes Dry - Respiratory Exam Respiratory Exam: Decreased Breath Sounds - Cardiovascular Exam Cardiovascular Exam: REGULAR RHYTHM - GI/Abdominal Exam GI & Abdominal Exam: Distended - Rectal Exam Rectal Exam: Deferred Assessment and Plan (1) Bone and joint malformation Status: Acute (2) Osteomyelitis Status: Acute (3) Rheumatoid arthritis of foot Status: Acute
[2018-04-22 16:27] VITALS: RESP 20
--- NOTE | 2018-04-22 16:59 | RAD ---
Date of service: 04/22/2018 PROCEDURE: Bilateral Feet Radiographs. HISTORY: s/p b/l foot surgery COMPARISON: Bilateral foot radiographs performed 04/14/18 FINDINGS: Limited two views provided of each foot. Right Foot: Diffuse osseous demineralization limits evaluation for acute fracture lines. Suboptimal evaluation of the digits due to positioning/hammertoe deformities. The patient has undergone amputations at several levels inadequately assessed on this study. Metallic plate and screw fixation of the distal fibula. Osseous hypertrophic changes at the level of the 5th metatarsal head. Overall appearance grossly similar to prior study. Marked soft tissue swelling. Left Foot: Diffuse osseous demineralization limits evaluation. Suboptimal evaluation of the digits due to positioning/hammertoe deformities. Deformity of the 1st metatarsal; correlate for interval partial resection of the metatarsal. Otherwise overall grossly stable appearance as compared to prior study. Marked soft tissue swelling. Vascular calcifications. IMPRESSION: Suboptimal evaluation due to limitations of the study. Interval change in appearance of the left 1st metatarsal with deformity suspected secondary to interval partial resection of the metatarsal. Correlate with surgical history. Otherwise grossly stable appearance as compared to prior imaging.
[2018-04-23 01:15] VITALS: O2SAT 95
[2018-04-23] MEDS: Sodium Chloride 0.9% 1,000 ML IV SCH ×2 (02:00→06:03)
[2018-04-23] MEDS: Piperacill/Tazo 3.375gm in Dex 3.375 GM/50 ML BAG IVPB SCH (06:02)
--- NOTE | 2018-04-23 07:17 | CP.PCM.PN ---
Subjective - Date & Time of Evaluation Date of Evaluation: 04/23/18 Time of Evaluation: 07:35 Objective - Vital Signs/Intake and Output Vital Signs (last 24 hours): Temp Pulse Resp BP Pulse Ox 98.1 F 73 20 111/57 L 95 04/22/18 23:40 04/22/18 23:40 04/22/18 23:40 04/22/18 23:40 04/22/18 23:40 Intake and Output: 04/23/18 04/23/18 06:59 18:59 Intake Total 580 Balance 580 - Medications Medications: Current Medications Acetaminophen (Tylenol 325mg Tab) 650 mg PO Q6 PRN PRN Reason: Pain, Mild (1-3) Diphenhydramine HCl (Benadryl) 25 mg PO Q6 PRN PRN Reason: itching Last Admin: 04/16/18 20:06 Dose: 25 mg Hydrochlorothiazide (Hydrodiuril) 25 mg PO DAILY [facility] Last Admin: 04/22/18 10:01 Dose: Not Given Ferric Sodium Gluconate Complex 125 mg/ Sodium Chloride 110 mls @ 110 mls/hr IVPB DAILY [facility] Stop: 04/23/18 09:31 Last Admin: 04/22/18 09:44 Dose: 110 mls/hr Piperacillin Sod/Tazobactam Sod (Zosyn 3.375 Gm Iv Premix) 3.375 gm in 50 mls @ 200 mls/hr IVPB Q8H [facility]; Protocol Last Admin: 04/23/18 06:02 Dose: 200 mls/hr Dextrose/Sodium Chloride (Dextrose 5%/0.45% Ns 1000 Ml) 1,000 mls @ 60 mls/hr IV .[id number] [facility] Last Admin: 04/21/18 06:23 Dose: 60 mls/hr Sodium Chloride (Sodium Chloride 0.9%) 1,000 mls @ 60 mls/hr IV .[id number] [facility] Last Admin: 04/23/18 06:03 Dose: 60 mls/hr Lisinopril (Zestril) 10 mg PO DAILY [facility] Last Admin: 04/22/18 10:01 Dose: Not Given Lorazepam (Ativan) 0.5 mg IVP ONCE PRN PRN Reason: agitation for mri Oxycodone/Acetaminophen (Percocet 5/325 Mg Tab) 1 tab PO Q4H PRN PRN Reason: Pain, moderate (4-7) Stop: 04/25/18 12:58 Last Admin: 04/23/18 03:33 Dose: 1 tab Pantoprazole Sodium (Protonix Ec Tab) 40 mg PO DAILY [facility] Last Admin: 04/22/18 10:01 Dose: Not Given - Labs Labs: 04/22/18 07:44 04/22/18 07:44 PT 13.4 SECONDS (9.7-12.2) H 04/22/18 07:44 INR 1.2 04/22/18 07:44 APTT 36 SECONDS (21-34) H 04/22/18 07:44
[2018-04-23 07:50] LABS: BASO # 0.1 K/uL (0.0-0.2); BASO % 2.2 % (0.0-2.0); EOS % 1.3 % (0.0-4.0); HEMOGLOBIN 8.3 g/dL (11.0-16.0); LYMPH # 0.9 K/uL (1.0-4.3); LYMPH % 25.7 % (20.0-40.0); MEAN CORPUSCULAR HEMOGLOBIN 23.2 pg (27.0-31.0); MEAN CORPUSCULAR HGB CONC 33.1 g/dL (33.0-37.0); MEAN PLATELET VOLUME 6.8 fL (7.2-11.7); MONO # 0.4 K/uL (0.0-0.8); MONO % 9.9 % (0.0-10.0); NEUT # 2.2 K/uL (1.8-7.0); NEUT % 60.9 % (50.0-75.0); RBC 3.59 Mil/uL (3.80-5.20); RED CELL DISTRIBUTION WIDTH 20.2 % (11.5-14.5); WHITE BLOOD COUNT 3.6 K/uL (4.8-10.8)
[2018-04-23 08:05] LABS: ALB/GLOB RATIO 0.8 (1.0-2.1); ALBUMIN 2.9 g/dL (3.5-5.0); ALT/SGPT 17 U/L (9-52); AST/SGOT 21 U/L (14-36); BLOOD UREA NITROGEN 12 mg/dL (7-17); CALCIUM 8.1 mg/dl (8.6-10.4); GFR NON-AFRICAN AMERICAN > 60
[2018-04-23 08:30] VITALS: BP 112/59
[2018-04-23] MEDS: Pantoprazole 40 mg EC Tab PO SCH (11:09)
--- NOTE | 2018-04-23 11:23 | OP ---
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 PROCEDURE PERFORMED: Bilateral partial first metatarsal head resection with left foot hallux proximal phalanx bone biopsy. SURGEON: Aneudy Mcmullen DPM. INJECTION MAINTENANCE TECHNICIAN: Rolan Martines DPM, PGY-2. ANESTHESIOLOGIST: Gold Garcia DO TYPE OF ANESTHESIA: IV sedation with local. INDICATIONS: The patient is an 82-year-old female with the above diagnosis. The patient is being treated by Dr. Mcmullen, who is being managed on the hospital floor for an open ulceration with exposed first metatarsal head with concerns of osteomyelitis. At this time, the patient exhausted multiple forms of conservative treatment, and the patient seeks surgical intervention at this time and now requests a surgical procedure. All risks, benefits, and possible complications of proposed procedure have been explained to the patient as well as patient's next of kin prior to taking the patient to the operating room. The patient and the patient's guardian demonstrates verbal understanding of the procedure. A consent was signed and was placed in chart. Consent was signed by the patient's daughter who is the next of kin. N.p.o. status was confirmed prior to taking the patient to the operating room. No guarantees were given to the outcome of the procedure. OPERATIVE PROCEDURE AND PREPARATION: The patient was brought into the operating room and was placed on the operating room table in supine position. No tourniquet was applied to the patient's ankle during the course of this procedure. After the induction of IV sedation, the patient received a total of 20 mL of 1:1 mixture of 0.5% Marcaine plain to 1% lidocaine plain in a local block-type fashion to the patient's bilateral midfoot. Once the local anesthesia was achieved, the patient's bilateral feet were then prepped and draped in usual sterile manner and the procedure began. DESCRIPTION OF PROCEDURE: Bilateral partial first metatarsal head resection with left foot hallux proximal phalanx bone biopsy. At this time, attention was directed to the right foot where the head of the first metatarsal was exposed through a wound, and the hallux was noted to be severely laterally dislocated secondary to rheumatoid arthritis manifestations. At this time, a fish mouth type incision was planned out using a marking pen. Utilizing a #15 blade, incision was carried down directly to the level of the bone on a planned site. All of the necrotic and non-viable soft tissue was debrided from the surgical site and it was passed off the operative field. At this time, the shaft of the first metatarsal was exposed into the operative site. Utilizing a sagittal saw, he head of the first metatarsal was resected. The cut of the bone was created towards the distal dorsal to plantar proximal, and proximal medial to distal lateral. All of the bony prominences were then smoothened with the hand rasp and a hand rongeur. Surgical site was then irrigated with copious amount of sterile saline at this time. Subcutaneous tissue was then reapproximated with the use of 3-0 Vicryl and the skin was then reapproximated and the surgical site was then primarily closed on the right foot using a 4-0 nylon with a horizontal and vertical type suturing technique. Attention was now directed to the patient's left foot. All of the similar steps were followed on the left foot. The head of the first metatarsal from the left foot and right foot were then passed off the operative field and was sent to Pathology. Bone cultures were also taken as well as the wound cultures were also taken prior to performing a primary closure at the surgical site on bilateral feet. At this time, attention was directed to the wound on the dorsal aspect of the left hallux. The wound was noted to be circular, approximately in size of 0.2 cm x 0.3 cm. At this time utilizing a #15 blade, all of the nonviable soft tissue as well as all of the fibrotic tissue was removed from the wound. At this time utilizing a handheld rongeur, part of the proximal phalanx was resected and was passed off the operative field and was sent to Pathology as well as the bone culture. The surgical site was then irrigated with copious amount of sterile saline. The wound on the dorsal aspect of the hallux was then packed with quarter-inch Iodoform dressing. Both of the operative sites were then dressed with Bacitracin, Adaptic, sterile 4x4, Kerlix, and an Rodney bandage to bilateral feet. POSTOPERATIVE CONDITION: The patient tolerated the anesthesia and the procedure well and was escorted to the recovery room with vital signs stable and neurovascular status intact to the patient's bilateral feet. The patient will remain nonweightbearing to bilateral feet. At this time, the patient to be wearing multi Podus boot while in bed. The patient will now return to the floor after the patient is stable to PACU. Podiatry will follow the patient on regular basis/daily basis once she returns to the floor. Rolan Martines DPM Aneudy Mcmullen DPM [email or web address]
--- NOTE | 2018-04-23 13:04 | CP.PCM.PN ---
Subjective - Date & Time of Evaluation Date of Evaluation: 04/23/18 Time of Evaluation: 13:00 - Subjective Subjective: Podiatry Progress Note: Dr. Mcmullen 82 year old female seen and evaluated 1 day s/p bilateral feet partial 1st metatarsal resection with left foot proximal phalanx bone biopsy. Patient is AAOx3 and appear in NAD. Denies of any acute overnight events. Denies of any pain today. Denies of recent F/N/V/C/SOB/CP/headache. No other pedal complains at this time. Objective - Vital Signs/Intake and Output Vital Signs (last 24 hours): Temp Pulse Resp BP Pulse Ox 98.1 F 67 20 112/59 L 95 04/23/18 08:29 04/23/18 08:29 04/23/18 08:29 04/23/18 08:29 04/23/18 08:29 Intake and Output: 04/23/18 04/23/18 06:59 18:59 Intake Total 580 Balance 580 - Medications Medications: Current Medications Acetaminophen (Tylenol 325mg Tab) 650 mg PO Q6 PRN PRN Reason: Pain, Mild (1-3) Diphenhydramine HCl (Benadryl) 25 mg PO Q6 PRN PRN Reason: itching Last Admin: 04/16/18 20:06 Dose: 25 mg Hydrochlorothiazide (Hydrodiuril) 25 mg PO DAILY [facility] Last Admin: 04/23/18 11:10 Dose: 25 mg Dextrose/Sodium Chloride (Dextrose 5%/0.45% Ns 1000 Ml) 1,000 mls @ 60 mls/hr IV .[id number] [facility] Last Admin: 04/21/18 06:23 Dose: 60 mls/hr Sodium Chloride (Sodium Chloride 0.9%) 1,000 mls @ 60 mls/hr IV .[id number] [facility] Last Admin: 04/23/18 06:03 Dose: 60 mls/hr Cefazolin Sodium 1,000 mg/ (Sodium Chloride) 50 mls @ 100 mls/hr IVPB Q8H [facility]; Protocol Last Admin: 04/23/18 11:53 Dose: 100 mls/hr Lisinopril (Zestril) 10 mg PO DAILY [facility] Last Admin: 04/23/18 11:10 Dose: 10 mg Lorazepam (Ativan) 0.5 mg IVP ONCE PRN PRN Reason: agitation for mri Oxycodone/Acetaminophen (Percocet 5/325 Mg Tab) 1 tab PO Q4H PRN PRN Reason: Pain, moderate (4-7) Stop: 04/25/18 12:58 Last Admin: 04/23/18 03:33 Dose: 1 tab Pantoprazole Sodium (Protonix Ec Tab) 40 mg PO DAILY [facility] Last Admin: 04/23/18 11:09 Dose: 40 mg - Labs Labs: 04/23/18 07:42 04/23/18 07:42 PT 13.4 SECONDS (9.7-12.2) H 04/22/18 07:44 INR 1.2 04/22/18 07:44 APTT 36 SECONDS (21-34) H 04/22/18 07:44 - Constitutional Appears: Well, Non-toxic, No Acute Distress - Extremities Exam Additional comments: LE focused exam: VASC: DP/PT pulses fully palpable 2/4 b/l. Skin temperature warm to warm from p roximal to distal. CFT < 3 seconds to all digits. Minimal edema noted to bilateral feet Derm: surgical site appears well coapted with no dehiscence, no active drainage, mild sero-sanguineous drainage noted on the bandage, no malodor, minimal erythema accompanied by edema bilaterally Neuro: Epicritic and protective sensation grossly diminished b/l MSK: Severe digital deformities noted to all digits of both feet especially b/l hallux which are deviated so far laterally. All other digits laterally deviated and contracted - Neurological Exam Neurological Exam: Alert, Awake, Oriented x3 - Psychiatric Exam Psychiatric exam: Normal Affect, Normal Mood Assessment and Plan - Assessment and Plan (Free Text) Assessment: 82 year old female evaluated 1 day s/p bilateral feet partial 1st metatarsal resection with left foot hallux proximal phalanx bone biopsy. Plan: Patient seen and evaluated Discussed plan with attending Dr. Mcmullen Afebrile, absent leukocytosis pre-opFoot xray: Multiple hammertoe orientations as well as multiple subluxations inferred-overall toes are markedly disorganized in appearance on both feet. Comparisons available to assess for stability. Chronicity is favored. Postsurgical changes as detailed above. No gross fracture seen. There is apparent paucity over some of the osseous structures where clinical history states bone is protruding. Is difficult to assess for any discrete osteomy elitis or periosteal reaction to suggest this. Vascular calcifications Wounds dressed with betadine, 4x4 gauz, kerlix on bilateral foot Multipodus boots to be worn at all times while in bed Continue abx per ID PICC line in place Patient is stable from podiatry standpoint at this time - upon discharge please follow up with Dr. Mcmullen Podiatry will continue to follow while patient in house
--- NOTE | 2018-04-23 13:05 | RAD ---
Chest x-ray single frontal view HISTORY: PICC line placement. Comparison: 04/14/2018 FINDINGS: Right PICC line with tip extending to the cavoatrial junction. No evidence of postprocedure pneumothorax. Biapical pleural thickening. Hyperinflation suggestive for COPD and or emphysematous changes. Elevated left hemidiaphragm with mild left basilar atelectasis. Consolidative changes in the medial aspect of the left lower lung zone. Atherosclerotic calcification at the aortic knob. Mild cardiomegaly. Degenerative changes in the spine and shoulders. Impression: Right PICC line with tip extending to the cavoatrial junction. No evidence of postprocedure pneumothorax. Biapical pleural thickening. Hyperinflation suggestive for COPD and or emphysematous changes. Elevated left hemidiaphragm with mild left basilar atelectasis. Consolidative changes in the medial aspect of the left lower lung zone. Atherosclerotic calcification at the aortic knob. Mild cardiomegaly.
--- NOTE | 2018-04-23 16:59 | CP.PCM.DIS ---
Provider - Provider Date of Admission: 04/14/18 14:47 Attending physician: Joe Snyder Jr, MD Consults: 04/14/18 13:38 Physician Consult Routine Comment: *ALREADY CALLED Consulting Provider: Aneudy Mcmullen Consulting Physician: Aneudy Mcmullen Reason for Consult: OSTEO 04/14/18 18:41 Nursing Referral for Wound Care Routine Comment: Physician Instructions: Reason For Exam: incontinence, bed bound 04/14/18 18:46 Nursing Referral for Palliative Care Routine Comment: Physician Instructions: Reason For Exam: dementia, flow sheet score 04/14/18 19:02 Infectious Disease Consult Routine Comment: Consulting Provider: Josh Patel Consulting Physician: Josh Patel Reason for Consult: Exposed bone b/l feet, clinical OM Vascular Surgery Routine Comment: Consulting Provider: Micah Garcia Jr. Physician Instructions: Reason For Exam: Vascular consult for surgical pre-op 04/14/18 22:23 Nursing Referral for Wound Care Routine Comment: Physician Instructions: Reason For Exam: open bilateral foot ulcers 04/18/18 13:16 Urology Consult Routine Comment: Consulting Provider: Lakeshia Chavarria Consulting Physician: Lakeshia Chavarria Reason for Consult: hematuria 04/21/18 11:53 [employer] [Case Management Referral] Routine Comment: Physician Instructions: Reason For Exam: consult for DIOGO, for abx and wound care Reason for Referral: Discharge Planning Time Spent in preparation of Discharge (in minutes): 35 Hospital Course - Lab Results Lab Results: Micro Results 04/22/18 15:00 Bone Gram Stain - Final 04/22/18 15:00 Bone Gram Stain - Final 04/20/18 17:27 Urine Urine Culture - Final No Growth (<1,000 CFU/ML) 04/14/18 13:57 Blood Blood Culture - Final NO GROWTH AFTER 5 DAYS 04/14/18 13:57 Blood Gram Stain - Final TEST NOT PERFORMED 04/14/18 13:45 Blood Blood Culture - Final NO GROWTH AFTER 5 DAYS 04/14/18 13:45 Blood Gram Stain - Final TEST NOT PERFORMED Most Recent Lab Values WBC 3.6 K/uL (4.8-10.8) L 04/23/18 07:42 RBC 3.59 Mil/uL (3.80-5.20) L 04/23/18 07:42 Hgb 8.3 g/dL (11.0-16.0) L 04/23/18 07:42 Hct 25.1 % (34.0-47.0) L 04/23/18 07:42 MCV 70.0 fL (81.0-99.0) L 04/23/18 07:42 MCH 23.2 pg (27.0-31.0) L 04/23/18 07:42 MCHC 33.1 g/dL (33.0-37.0) 04/23/18 07:42 RDW 20.2 % (11.5-14.5) H 04/23/18 07:42 Plt Count 185 K/uL (130-400) 04/23/18 07:42 MPV 6.8 fL (7.2-11.7) L 04/23/18 07:42 Neut % (Auto) 60.9 % (50.0-75.0) 04/23/18 07:42 Lymph % (Auto) 25.7 % (20.0-40.0) 04/23/18 07:42 Kingfisher % (Auto) 9.9 % (0.0-10.0) 04/23/18 07:42 Eos % (Auto) 1.3 % (0.0-4.0) 04/23/18 07:42 Baso % (Auto) 2.2 % (0.0-2.0) H 04/23/18 07:42 Neut # (Auto) 2.2 K/uL (1.8-7.0) 04/23/18 07:42 Lymph # (Auto) 0.9 K/uL (1.0-4.3) L 04/23/18 07:42 Kingfisher # (Auto) 0.4 K/uL (0.0-0.8) 04/23/18 07:42 Eos # (Auto) 0.0 K/uL (0.0-0.7) 04/23/18 07:42 Baso # (Auto) 0.1 K/uL (0.0-0.2) 04/23/18 07:42 Differential Comment 04/14/18 13:43 ESR 60 mm/hr (0-20) H 04/14/18 17:15 Haptoglobin 249.7 mg/dL (30.0-200.0) H 04/16/18 07:41 PT 13.4 SECONDS (9.7-12.2) H 04/22/18 07:44 INR 1.2 04/22/18 07:44 APTT 36 SECONDS (21-34) H 04/22/18 07:44 Sodium 130 mmol/L (132-148) L 04/23/18 07:42 Potassium 3.7 mmol/L (3.6-5.2) 04/23/18 07:42 Chloride 96 mmol/L (98-107) L 04/23/18 07:42 Carbon Dioxide 25 mmol/L (22-30) 04/23/18 07:42 Anion Gap 12 (10-20) 04/23/18 07:42 BUN 12 mg/dL (7-17) 04/23/18 07:42 Creatinine 0.7 mg/dL (0.7-1.2) 04/23/18 07:42 Est GFR ( Amer) > 60 04/23/18 07:42 Est GFR (Non-Af Amer) > 60 04/23/18 07:42 POC Glucose (mg/dL) 142 mg/dL (65-110) H 04/23/18 11:26 Random Glucose 94 mg/dL (65-105) 04/23/18 07:42 Calcium 8.1 mg/dl (8.6-10.4) L 04/23/18 07:42 Iron 23 ug/dL (37-170) L 04/14/18 17:15 TIBC 203 ug/dL (250-450) L 04/14/18 17:15 % Saturation 11 (20-55) L 04/14/18 17:15 Ferritin 31.1 ng/mL 04/14/18 17:15 Total Bilirubin 0.9 mg/dL (0.2-1.3) 04/23/18 07:42 AST 21 U/L (14-36) 04/23/18 07:42 ALT 17 U/L (9-52) 04/23/18 07:42 Alkaline Phosphatase 66 U/L (38-126) 04/23/18 07:42 Total Protein 6.4 g/dL (6.3-8.3) 04/23/18 07:42 Albumin 2.9 g/dL (3.5-5.0) L 04/23/18 07:42 Globulin 3.4 gm/dL (2.2-3.9) 04/23/18 07:42 Albumin/Globulin Ratio 0.8 (1.0-2.1) L 04/23/18 07:42 Urine Color Light brown (YELLOW) 04/22/18 01:39 Urine Clarity Turbid (Clear) 04/22/18 01:39 Urine pH 6.0 (5.0-8.0) 04/22/18 01:39 Ur Specific Summers 1.011 (1.003-1.030) 04/22/18 01:39 Urine Protein 1+ mg/dL (NEGATIVE) H 04/22/18 01:39 Urine Glucose (UA) Normal mg/dL (Normal) 04/22/18 01:39 Urine Ketones Negative mg/dL (NEGATIVE) 04/22/18 01:39 Urine Blood 3+ (NEGATIVE) H 04/22/18 01:39 Urine Nitrate Negative (NEGATIVE) 04/22/18 01:39 Urine Bilirubin Negative (NEGATIVE) 04/22/18 01:39 Urine Urobilinogen Normal mg/dL (0.2-1.0) 04/22/18 01:39 Ur Leukocyte Esterase 1+ Lisa/uL (Negative) H 04/22/18 01:39 Urine WBC (Auto) 53 /hpf (0-5) H 04/22/18 01:39 Urine RBC (Auto) 1186 /hpf (0-3) H 04/22/18 01:39 Ur Squamous Epith Cells 1 /hpf (0-5) 04/22/18 01:39 Urine Bacteria Occ (<OCC) H 04/15/18 22:57 Stool Occult Blood Negative (NEGATIVE) 04/15/18 19:21 Vancomycin Trough 23.8 ug/mL (5.0-10.0) H 04/17/18 08:08 Blood Type B NEGATIVE 04/16/18 17:15 Antibody Screen Negative 04/16/18 17:15 - Hospital Course Hospital Course: On admission: Patient is an 82 y.o female with PMH of Rheumatoid arthritis and HTN presents to emergency department for evaluation of possible osteomyelitis in bilateral lower feet. Patient's family was not at bedside during interview process. Patient AAO x 1 at best and is very forgetful, likely secondary to baseline dementia. Patient is a poor historian and most information was collected through nursing staff and chart review. Patient's family was attempted to be contacted but no response. Hospital course: Pt noted to be have iron deficiency anemia (hemoccult negative), and was started on IV iron and received 1 unit of pRBC, with appropriate response. Infectious disease, Dr. Patel, consulted for osteomyelitis. Pt was started on antibiotics. Podiatry, Dr. Mcmullen, was consulted for potential OR for osteomyelitis. Vascular surgery, Dr. Garcia, was consulted due to chronic foot wounds. Due to pt's dementia at baseline and worsening during MRI, pt's MRI was unable to be completed. CTA showed no signs of clinically significant stenosis, no surgical intervention was indicated for by vascular surgery. Pt had episode of hematuria during inpatient stay. Urology, Rupert Chavarria, consulted. Will plan for outpatient cystoscopy. UTI noted on admission urinalysis and she has been receiving antibiotics. Pt underwent bilateral partial 1st metatarsal resection with left foot proximal phalanx bone biopsy on 04/22/18. Pt will be transferred to [facility], for wound care, IV antibiotics. Images: Renal US shows underlying medical renal disease. Small midpole cyst. Bilateral lower extremity OLIVA showed no arterial insufficiency bilaterally. CTA abd/pelvis: no significant stenosis noted. This is a summary of the hospital course, please see EMR for full details. Discharge Exam - Head Exam Head Exam: NORMOCEPHALIC - Additional Findings Additional findings: - Constitutional Appears: No Acute Distress, Confused at baseline - Head Exam Head Exam: ATRAUMATIC, NORMOCEPHALIC - Eye Exam Eye Exam: EOMI - ENT Exam ENT Exam: Mucous Membranes Moist - Respiratory Exam Respiratory Exam: Clear to Ausculation Bilateral, NORMAL BREATHING PATTERN. absent: Decreased Breath Sounds, Rhonchi, Wheezes - Cardiovascular Exam Cardiovascular Exam: REGULAR RHYTHM, +S1, +S2. absent: tachycardia - GI/Abdominal Exam GI & Abdominal Exam: Soft, Normal Bowel Sounds. (+) large ventral hernia, nontender, bowel sounds intact, chronic, no signs of infection. No redness, no warmth. absent: Tenderness, distension - Extremities Exam Good capillary refill. Additional comments: dressings to bilateral lower extremities; C/D/I. no signs of acute bleeding. - Neurological Exam Neurological Exam: Alert, Awake. Oriented to self and place only. absent: Oriented x3. - Psychiatric Exam Psychiatric exam: Normal Affect, Normal Mood - Skin Skin Exam: Dry, Pallor, Warm Discharge Plan - Follow Up Plan Condition: GOOD Disposition: TRANSF TO [facility] Instructions: Rheumatoid Arthritis (DC), Osteomyelitis (DC) Additional Instructions: Pt is medically stable for transfer to [facility] as per Dr. Snyder. Pt is s/p bilateral feet partial 1st metatarsal resection with left foot proximal phalanx bone biopsy. Daily wound care: Betadine, 4x4 gauz, kerlix on bilateral foot Multipodus boots to be worn at all times while in bed Dr. Mcmullen will f/u with pt. Pt will need to continue Ancef 1g q8h for a minimum of 2 weeks, pending results from bone biopsy culture. Referrals: Aneudy Mcmullen DPM [Doctor Podiatric Medicine] - Joe Snyder Jr., MD [Medical Doctor] - Josh Patel MD [Staff Provider] - Micah Garcia Jr., MD [Staff Provider] - Lakeshia Chavarria MD [Staff Provider] -
[2018-04-23 17:13] VITALS: PULSE 70; TEMP 98
--- NOTE | 2018-04-27 07:59 | CON ---
DATE: 04/24/2018 Urology consultation is requested by Dr. Joe Snyder. Urology consultation is filled by Dr. Lakeshia Chavarria. REASON FOR CONSULTATION: Hematuria. HISTORY OF PRESENT ILLNESS: The patient is an 82-year-old female with hematuria. The patient is in otherwise fair health. The patient was admitted for infection of the lower extremities. The patient has history of hypertension and rheumatoid arthritis. The patient has history of dementia as well. The patient was admitted to the emergency room. The patient has had podiatry care consultation. The patient is currently being treated for osteomyelitis. The patient is unable to give further history regarding her voiding. The patient has had urinary incontinence. The patient reports no hematuria, although she has dementia and her history is not reliable. On admission, the patient was found to have marked anemia. Hematocrit was 25. The patient had azotemia. On admission, BUN was 73. Creatinine was 1.1. The patient has history of rheumatoid arthritis as well. The patient was found to have hematuria. The patient does not report dysuria or frequency. The patient does not report abdominal pain or flank pain. The patient is uncertain regarding history of previous urinary tract infection or urolithiasis. Repeat blood tests have shown improvement of BUN and creatinine. BUN was 21 and creatinine 0.9 on 04/20/2018. The patient has had infectious disease care and consultation as well. The patient is currently receiving antibiotic therapy. PHYSICAL EXAMINATION: GENERAL: The patient is a well-developed, well-nourished thin female. The patient is awake, alert, and conversant. She is oriented only to person. She is unaware of her current location and of the year. She reports that she lives with her mother. ABDOMEN: Soft, nondistended, nontender. No mass or organomegaly present. There is a recurrent large ventral hernia. BACK: No CVA tenderness. IMPRESSION: An 82-year-old female with osteomyelitis of lower extremities and vascular insufficiency of lower extremities. The patient is currently receiving antibiotic therapy. The patient may be scheduled for further podiatric surgery. The patient has hematuria. Etiology of hematuria may be due to infection, neoplasia, and/or urolithiasis. RECOMMENDATIONS AND PLAN: Please obtain urine culture. Urine cytology. Continue antibiotic therapy for the foot infection, which should cover urinary tract infection. Obtain renal ultrasound. Possible need for CT scan. Possible need for cystoscopy. Further therapy to follow according to the patient's clinical course as well as results of above as well as the wishes of the patient's family and the attending physician. Thank you for recommending the patient for urology consultation. Cowden MD Deon cc: Joe Snyder MD
== END 2018-04-24 00:26 | DRG 478 ==
LOC: C.ER 12:57 → C.9E 14:47 → C.5S 17:21
PROVIDERS: ADMIT Internal Medicine; ATTEND Internal Medicine
PROC: 0QBP0ZZ Excision of Left Metatarsal, Open Approach (ICD-10-PCS; 2018-04-22)
PROC: 0QBN0ZZ Excision of Right Metatarsal, Open Approach (ICD-10-PCS; 2018-04-22)
PROC: 0QBR0ZX Excision of Left Toe Phalanx, Open Approach, Diagnostic (ICD-10-PCS; principal; 2018-04-22 12:00)
DX: M06.9 Rheumatoid arthritis, unspecified (principal); M86.672 Other chronic osteomyelitis, left ankle and foot; M86.671 Other chronic osteomyelitis, right ankle and foot; M21.619 Bunion of unspecified foot; M19.079 Primary osteoarthritis, unspecified ankle and foot; F17.200 Nicotine dependence, unspecified, uncomplicated; F03.90 Unspecified dementia, unspecified severity, without behavioral disturbance, psychotic disturbance, mood disturbance, and anxiety; I70.25 Atherosclerosis of native arteries of other extremities with ulceration; Z74.01 Bed confinement status; Z51.5 Encounter for palliative care; F17.210 Nicotine dependence, cigarettes, uncomplicated; I10 Essential (primary) hypertension; R31.9 Hematuria, unspecified; D64.9 Anemia, unspecified; M20.42 Other hammer toe(s) (acquired), left foot; M20.41 Other hammer toe(s) (acquired), right foot; L98.499 Non-pressure chronic ulcer of skin of other sites with unspecified severity